=== PATIENT | female | born 1945 | race African-American/Black ===

== ENCOUNTER 2017-06-03 14:08 | Inpatient (IN) | payer MEDICARE, OTHER ==
[~2017-06-03] VITALS: Ht 147.3 cm; Wt 54.4 kg
[~2017-06-03 14:08] MED LIST: ACETYLCYST200 MG/11 TRANSTR092; AMLODIPINE BESYL5 MG GT; ARICEPT5 MG GT; ASPIRIN81 MG GT; CARAFATE SUSP UD1 G1 GT; CATAPRES0.1 MG GT; DOXYCYCLINE MO100 MG ORAL; DUONEB 0.5-3(2.53 ML HHN; ENSURE PLUS237 ML GT; FOLIC ACID1 MG GT; FUROSEMIDE40 MG GT; KEPPRA LIQ100 MG/1 M GT; LORAZEPAM1 MG ORAL; METOPROLOL TART25 MG ORAL; POTASSIUM20 MEQ/15 GT; PREDNISONE5 MG GT; TOPIRAMATE100 MG GT; VIMPAT200 MG GT; ZOLOFT50 MG GT
--- NOTE | 2017-06-03 15:00 | Diagnostic Imaging Report ---
Indication: Dyspnea Comparison: None A single view chest radiograph was obtained. Findings: Tracheostomy noted. Lungs are clear. There is a right pleural effusion versus pleural thickening. Aorta is ectatic. Heart size is normal. Bones are osteopenic. Impression: Right pleural effusion versus pleural thickening.
[2017-06-03 15:55] LABS: MEAN CORPUSCULAR HEMOGLOBIN 34.7 PG (27.0-31.0); MEAN CORPUSCULAR HGB CONC 34.5 G/DL (32.0-36.0); MEAN CORPUSCULAR VOLUME 101 FL (80-99); MEAN PLATELET VOLUME 10.3 FL (6.5-10.1); PLATELET COUNT 165 K/UL (150-450); RED BLOOD COUNT 2.24 M/UL (4.20-5.40); RED CELL DISTRIBUTION WIDTH 13.8 % (11.6-14.8)
[2017-06-03 16:05] LABS: PROTHROMBIN TIME 10.7 SEC (9.30-11.50)
[2017-06-03 16:15] LABS: ALANINE AMINOTRANSFERASE 71 U/L (3-33); ALBUMIN/GLOBULIN RATIO 0.7 (1.0-2.7); ANION GAP 14 (5-15); ASPARTATE AMINO TRANSFERASE 51 U/L (5-40); CALCIUM 8.9 mg/dL (8.6-10.2); CARBON DIOXIDE 18 mEQ/L (20-30); CHLORIDE 118 mEQ/L (98-107); CREATININE 1.1 mg/dL (0.5-0.9); HEMOLYSIS 7; POTASSIUM 3.8 mEQ/L (3.4-4.9); SODIUM 150 mEQ/L (135-145); TOTAL PROTEIN 7.9 g/dL (6.6-8.7); TROPONIN I < 0.30 ng/mL (<=0.30)
[2017-06-03 16:16] VITALS: BP 125/56
[2017-06-03 16:26] LABS: CKMB < 1.5 ng/mL (< 3.8)
[2017-06-03 16:27] LABS: APPEARANCE,URINE CLEAR; KETONES,URINE NEGATIVE (NEGATIVE); LEUKOCYTE ESTERASE ,URINE 1+ (NEGATIVE); NITRITE,URINE NEGATIVE (NEGATIVE); PH,URINE 6 (4.5-8.0); PROTEIN,URINE NEGATIVE (NEGATIVE); UROBILINOGEN,URINE NORMAL MG/DL (0.0-1.0)
[2017-06-03 16:40] LABS: BACTERIA,URINE OCCASIONAL /HPF; RBC,URINE 0-2 /HPF (0 - 2); SQUAMOUS EPITHELIAL CELL,UR OCCASIONAL /LPF (NONE/OCC); WBC,URINE 0-2 /HPF (0 - 2)
[2017-06-03 16:54] LABS: BAND NEUTROPHILS % (MANUAL) 1 % (0-8); EOSINOPHILS % (MANUAL) 10 % (0-3); LYMPHOCYTES % (MANUAL) 40 % (20-45); NEUTROPHILS % (MANUAL) 48 % (45-75); TOTAL CELLS COUNTED 100
[2017-06-03 16:55] LABS: ANISOCYTOSIS 1+; BASOPHILS % (MANUAL) 0 % (0-2); MACROCYTES 2+; PLATELET ESTIMATE ADEQUATE; PLATELET MORPHOLOGY NORMAL; POLYCHROMASIA 1+
--- NOTE | 2017-06-03 17:20 | Emergency Room Report ---
History of Present Illness General Chief Complaint: Abnormal Labs Source: Patient Present Illness HPI 71-year-old female presents to ED for evaluation. Per EMS patient noted to have abnormal labs. Patient had elevated sodium and low hemoglobin. Patient has a trach, gtube Is on ventilator. Coming from home. Patient is nonverbal at baseline. PMD is Dr. Perez. Afebrile at triage. No signs of distress. No other aggravating relieving factors. No other associated symptoms Allergies: Coded Allergies: DEXAMETHASONE (Unverified Allergy, Unknown, 07/10/15) Patient History Past Medical History: HTN, AFib, CVA/TIA, seizures Past Surgical History: other - trach, gtube Pertinent Family History: none Social History: Denies: smoking, alcohol use, drug use Now: No Immunizations: UTD Reviewed Nursing Documentation: PMH: Agreed, PSxH: Agreed Nursing Documentation-PMH Hx Cardiac Problems: Yes - a fib Hx Hypertension: Yes Hx Cancer: Yes Hx Gastrointestinal Problems: Yes Hx Cerebrovascular Accident: Yes - left side 2007 Hx Dementia: Yes Hx Seizures: Yes Hx Epilepsy: Yes Hx Aphasia: Yes Hx Neurologic Surgery: Yes - crainotomy 2011 Review of Systems All Other Systems: negative except mentioned in HPI Physical Exam Vital Signs Date Time Temp Pulse Resp B/P (MAP) Pulse Ox O2 Delivery O2 Flow Rate FiO2 06/03/17 14:05 70 16 100 Mechanical Ventilator 06/03/17 14:19 60.0 35 06/03/17 16:16 99.1 125/56 Sp02 EP Interpretation: reviewed, normal General Appearance: no apparent distress, non-toxic, other - nonverbal Head: normocephalic Eyes: bilateral eye normal inspection, bilateral eye PERRL ENT: hearing grossly normal, normal pharynx, no angioedema, normal voice Neck: tracheotomy Respiratory: chest non-tender, lungs clear, normal breath sounds, speaking full sentences Cardiovascular #1: regular rate, rhythm, no edema Gastrointestinal: normal bowel sounds, non tender, soft, non-distended, no guarding, no rebound, other - gtube Rectal: deferred Genitourinary: no CVA tenderness Musculoskeletal: normal inspection Neurologic: other - nonverbal Psychiatric: other - nonverbal Skin: normal inspection Lymphatic: normal inspection Medical Decision Making Diagnostic Impression: Primary Impression: Tracheostomy dependence Additional Impressions: Leukocytosis Qualified Codes: D72.829 - Elevated white blood cell count, unspecified Anemia Qualified Codes: D64.9 - Anemia, unspecified Hypernatremia ER Course Hospital Course 71-year-old female presents to ED for evaluation of hemoglobin, elevated sodium Differential diagnoses include: anemia requiring transfusion, microcytic anemia , macrocytic anemia, heavy blood loss Clinical course Patient placed on stretcher. After initial history and physical I ordered labs , ivfs, ekg, cxr Labs- leukocytosis noted, hb 7.8, Na 150. lactate ok EKG - nsr no acute changes interpreted by me CXR R effusion noted Vital stable. Patient does not require transfusion at this time IVFs given. levaquin given. Case discussed with PMD Dr. Le who accepted the patient for admission Diagnosis - tracheostomy dependence, leukocytosis, anemia, hypernatremia Admitted to [facility] in serious condition Labs Test 06/03/17 15:30 06/03/17 16:02 White Blood Count 16.0 K/UL (4.8-10.8) Red Blood Count 2.24 M/UL (4.20-5.40) Hemoglobin 7.8 G/DL (12.0-16.0) Hematocrit 22.6 % (37.0-47.0) Mean Corpuscular Volume 101 FL (80-99) Mean Corpuscular Hemoglobin 34.7 PG (27.0-31.0) Mean Corpuscular Hemoglobin Concent 34.5 G/DL (32.0-36.0) Red Cell Distribution Width 13.8 % (11.6-14.8) Platelet Count 165 K/UL (150-450) Mean Platelet Volume 10.3 FL (6.5-10.1) Neutrophils (%) (Auto) % (45.0-75.0) Lymphocytes (%) (Auto) % (20.0-45.0) Monocytes (%) (Auto) % (1.0-10.0) Eosinophils (%) (Auto) % (0.0-3.0) Basophils (%) (Auto) % (0.0-2.0) Differential Total Cells Counted 100 Neutrophils % (Manual) 48 % (45-75) Lymphocytes % (Manual) 40 % (20-45) Monocytes % (Manual) 1 % (1-10) Eosinophils % (Manual) 10 % (0-3) Basophils % (Manual) 0 % (0-2) Band Neutrophils 1 % (0-8) Platelet Estimate Adequate Platelet Morphology Normal Polychromasia 1+ Anisocytosis 1+ Macrocytosis 2+ Prothrombin Time 10.7 SEC (9.30-11.50) Prothromb Time International Ratio 1.0 (0.9-1.1) Activated Partial Thromboplast Time 26 SEC (23-33) Sodium Level 150 mEQ/L (135-145) Potassium Level 3.8 mEQ/L (3.4-4.9) Chloride Level 118 mEQ/L (98-107) Carbon Dioxide Level 18 mEQ/L (20-30) Anion Gap 14 (5-15) Blood Urea Nitrogen 30 mg/dL (7-23) Creatinine 1.1 mg/dL (0.5-0.9) Estimat Glomerular Filtration Rate mL/min (>60) Glucose Level 112 mg/dL (74-106) Lactic Acid Level 1.50 mmol/L (0.66-2.22) Calcium Level 8.9 mg/dL (8.6-10.2) Total Bilirubin < 0.2 mg/dL (0.0-1.2) Aspartate Amino Transf (AST/SGOT) 51 U/L (5-40) Alanine Aminotransferase (ALT/SGPT) 71 U/L (3-33) Alkaline Phosphatase 205 U/L (35-104) Total Creatine Kinase 76 U/L (26-140) Creatine Kinase MB < 1.5 ng/mL (< 3.8) Creatine Kinase MB Relative Index Troponin I < 0.30 ng/mL (<=0.30) Pro-B-Type Natriuretic Peptide 75 pg/mL (0-125) Total Protein 7.9 g/dL (6.6-8.7) Albumin 3.3 g/dL (3.5-5.2) Globulin 4.6 g/dL Albumin/Globulin Ratio 0.7 (1.0-2.7) Urine Color Pale yellow Urine Appearance Clear Urine pH 6 (4.5-8.0) Urine Specific [place] 1.010 (1.005-1.035) Urine Protein Negative (NEGATIVE) Urine Glucose (UA) Negative (NEGATIVE) Urine Ketones Negative (NEGATIVE) Urine Occult Blood Negative (NEGATIVE) Urine Nitrite Negative (NEGATIVE) Urine Bilirubin Negative (NEGATIVE) Urine Urobilinogen Normal MG/DL (0.0-1.0) Urine Leukocyte Esterase 1+ (NEGATIVE) Urine RBC 0-2 /HPF (0 - 2) Urine WBC 0-2 /HPF (0 - 2) Urine Squamous Epithelial Cells Occasional /LPF Urine Bacteria Occasional /HPF (NONE) EKG Diagnostic Results Rate: normal Rhythm: NSR ST Segments: no acute changes ASA given to the pt in ED: No Rhythm Strip Diag. Results EP Interpretation: yes Rhythm: NSR, no PVC's, no ectopy Chest X-Ray Diagnostic Results Chest X-Ray Diagnostic Results : Chest X-Ray Ordered: Yes # of Views/Limited/Complete: 1 View Indication: Other - ams EP Interpretation: Yes Interpretation: no consolidation, no pneumothorax, no acute cardiopulmonary disease, other - R effusion Impression: Other - R effusion Interpreting ER Provider: Electronically signed by Kendrick Cotto MD Last Vital Signs Date Time Temp Pulse Resp B/P (MAP) Pulse Ox O2 Delivery O2 Flow Rate FiO2 06/03/17 16:16 99.1 65 16 125/56 100 Mechanical Ventilator 6.0 35 Status: improved Disposition: ADMITTED INPATIENT Condition: Serious Referrals: NOT CHOSEN JATIN/,REFERRING (PCP) KENDRICK COTTO M.D. Jun 03, 2017 17:20
[2017-06-03 17:54] VITALS: BP 123/58
[2017-06-03 18:41] VITALS: BP 125/70
[2017-06-03 20:00] VITALS: BP 138/68
[2017-06-03] MEDS: Metoprolol 25mg tab GT SCH (20:51)
[2017-06-03] MEDS ORDERED: Heparin 5000 units/ml inj SUBQ SCH (21:00)
--- NOTE | 2017-06-03 23:23 | History and Physical ---
History of Present Illness General Date patient seen: Jun 03, 2017 Time patient seen: 17:00 Reason for Hospitalization: Abnormal Labs Present Illness HPI 71y/o AAF w/ MMP including Hx PUD w/ bleeding ulcer, CVA, Dysphagia, Trach, Bedbound, Seizures, G tube and anemia presents with generalized weakness/ lethargy and abnormal labs. Per daughter who is pt's caregiver at home, outpatient labs done by PCP showed hypernatremia and anemia. Pt was then sent to ER. Daughter states pt is non-verbal at baseline but has been more lethargic over the last few weeks and more confused over the last 2 days. At baseline pt is bedbound and minimally verbal, however knows her family and is able to express her wants. She lives at home and her primary caregiver is her daughter. Pt is on trach collar and receives G tube meds/feeds. Pt has a sacral decubitus ulcer being treated at home w/ wound mgt. No reports of f/c, n/v, d/c, chest pain, SOB, abd pain. PMHX includes; CVA 2007, no residual deficits Ovarian cancer s/p OLIVERIO SBO w/ Chemo Metastatic brain leasons s/p Cranial resection x 2 and XRT Urosepsis w/ complicated course including resp failure w/ trach placement and prolonged weaning to trach collar, G tube Seizures PUD w/ bleeding ulcer in 2011 s/p procedure to achieve hemostasis (? surgical vs EGD) Allergies: Coded Allergies: DEXAMETHASONE (Unverified Allergy, Unknown, 07/10/15) Medication History Scheduled Acetylcysteine* (Acetylcysteine*), 3 ML [id number] Q12HR, (Reported) Amlodipine Besylate* (Amlodipine Besylate*), 5 MG GT DAILY, (Reported) Aspirin* (Aspirin*), 81 MG GT DAILY, (Reported) Donepezil Hcl* (Aricept*), 5 MG GT BEDTIME, (Reported) Doxycycline Monohydrate* (Doxycycline Monohydrate*), 100 MG ORAL Q12H Folic Acid* (Folic Acid*), 1 MG GT DAILY, (Reported) Furosemide* (Lasix*), 40 MG GT DAILY, (Reported) Ipratropium/Albuterol Sulfate (DuoNeb 0.5-3(2.5)mg/3ml), 3 ML HHN Q6HR, ( Reported) Lacosamide (Vimpat), 200 MG GT Q12HR, (Reported) Lactose-Free Food (Ensure Plus), 1,659 ML GT DAILY, (Reported) Levetiracetam (Keppra), 15 ML GT BID, (Reported) Metoprolol Tartrate* (Metoprolol Tartrate*), 25 MG ORAL EVERY 12 HOURS, ( Reported) Potassium Chloride (Potassium Chloride), 10 MEQ GT BID, (Reported) Prednisone (Prednisone), 5 MG GT DAILY, (Reported) Sertraline Hcl* (Zoloft*), 50 MG GT BEDTIME, (Reported) Sucralfate (Sucralfate), 1 GM GT TID, (Reported) Topiramate* (Topamax*), 100 MG GT Q12HR, (Reported) Scheduled PRN Clonidine Hcl* (Catapres*), 0.1 MG GT EVERY 6 HOURS PRN for For High Blood Pressure, (Reported) Lorazepam* (Lorazepam*), 1 MG ORAL Q6HR PRN for Agitation, (Reported) Patient History History Provided By: Patient, Medical Record, Caregiver, PMD Healthcare decision maker Pt's daughter Resuscitation status Full Code Advanced Directive on File No Past Medical/Surgical History Past Medical/Surgical History: (1) Tracheostomy dependence (2) CVA (cerebral vascular accident) (3) Brain metastases (4) Ovarian cancer (5) PUD (peptic ulcer disease) (6) Functional quadriplegia (7) Dysphagia (8) Decubitus skin ulcer (9) Seizure (10) HTN (hypertension) (11) Anemia Family History Family History: Patient reports no known family medical history. Social History Social History: (1) lives at home with daughter as caregiver Review of Systems ROS Narrative Unable to obtain given AMS Physical Exam Last 24 Hour Vital Signs Date Time Temp Pulse Resp B/P (MAP) Pulse Ox O2 Delivery O2 Flow Rate FiO2 06/03/17 23:12 73 23 35 06/03/17 22:20 72 06/03/17 21:12 69 21 35 06/03/17 20:51 72 138/68 06/03/17 20:00 97.5 72 24 138/68 100 Mechanical Ventilator 35 06/03/17 19:56 79 21 Mechanical Ventilator 60.0 35 06/03/17 19:26 72 25 35 06/03/17 18:41 97.9 68 16 125/70 100 Mechanical Ventilator 6.0 35 06/03/17 18:10 35 06/03/17 17:58 98.9 67 16 123/58 100 Mechanical Ventilator 6.0 35 06/03/17 17:54 98.9 67 16 123/58 100 Mechanical Ventilator 6.0 35 06/03/17 17:26 70 16 35 06/03/17 16:16 99.1 65 16 125/56 100 Mechanical Ventilator 6.0 35 06/03/17 15:16 71 21 35 06/03/17 14:19 70 16 35 06/03/17 14:19 70 16 Mechanical Ventilator 60.0 35 06/03/17 14:05 70 16 100 Mechanical Ventilator Laboratory Tests Test 06/03/17 15:30 06/03/17 16:02 White Blood Count 16.0 K/UL (4.8-10.8) H Red Blood Count 2.24 M/UL (4.20-5.40) L Hemoglobin 7.8 G/DL (12.0-16.0) L Hematocrit 22.6 % (37.0-47.0) L Mean Corpuscular Volume 101 FL (80-99) H Mean Corpuscular Hemoglobin 34.7 PG (27.0-31.0) H Mean Corpuscular Hemoglobin Concent 34.5 G/DL (32.0-36.0) Red Cell Distribution Width 13.8 % (11.6-14.8) Platelet Count 165 K/UL (150-450) Mean Platelet Volume 10.3 FL (6.5-10.1) H Neutrophils (%) (Auto) % (45.0-75.0) Lymphocytes (%) (Auto) % (20.0-45.0) Monocytes (%) (Auto) % (1.0-10.0) Eosinophils (%) (Auto) % (0.0-3.0) Basophils (%) (Auto) % (0.0-2.0) Differential Total Cells Counted 100 Neutrophils % (Manual) 48 % (45-75) Lymphocytes % (Manual) 40 % (20-45) Monocytes % (Manual) 1 % (1-10) Eosinophils % (Manual) 10 % (0-3) H Basophils % (Manual) 0 % (0-2) Band Neutrophils 1 % (0-8) Platelet Estimate Adequate Platelet Morphology Normal Polychromasia 1+ Anisocytosis 1+ Macrocytosis 2+ Prothrombin Time 10.7 SEC (9.30-11.50) Prothromb Time International Ratio 1.0 (0.9-1.1) Activated Partial Thromboplast Time 26 SEC (23-33) Sodium Level 150 mEQ/L (135-145) H Potassium Level 3.8 mEQ/L (3.4-4.9) Chloride Level 118 mEQ/L (98-107) H Carbon Dioxide Level 18 mEQ/L (20-30) L Anion Gap 14 (5-15) Blood Urea Nitrogen 30 mg/dL (7-23) H Creatinine 1.1 mg/dL (0.5-0.9) H Estimat Glomerular Filtration Rate mL/min (>60) Glucose Level 112 mg/dL (74-106) H Lactic Acid Level 1.50 mmol/L (0.66-2.22) Calcium Level 8.9 mg/dL (8.6-10.2) Total Bilirubin < 0.2 mg/dL (0.0-1.2) Aspartate Amino Transf (AST/SGOT) 51 U/L (5-40) H Alanine Aminotransferase (ALT/SGPT) 71 U/L (3-33) H Alkaline Phosphatase 205 U/L (35-104) H Total Creatine Kinase 76 U/L (26-140) Creatine Kinase MB < 1.5 ng/mL (< 3.8) Creatine Kinase MB Relative Index Troponin I < 0.30 ng/mL (<=0.30) Pro-B-Type Natriuretic Peptide 75 pg/mL (0-125) Total Protein 7.9 g/dL (6.6-8.7) Albumin 3.3 g/dL (3.5-5.2) L Globulin 4.6 g/dL Albumin/Globulin Ratio 0.7 (1.0-2.7) L Urine Color Pale yellow Urine Appearance Clear Urine pH 6 (4.5-8.0) Urine Specific [place] 1.010 (1.005-1.035) Urine Protein Negative (NEGATIVE) Urine Glucose (UA) Negative (NEGATIVE) Urine Ketones Negative (NEGATIVE) Urine Occult Blood Negative (NEGATIVE) Urine Nitrite Negative (NEGATIVE) Urine Bilirubin Negative (NEGATIVE) Urine Urobilinogen Normal MG/DL (0.0-1.0) Urine Leukocyte Esterase 1+ (NEGATIVE) H Urine RBC 0-2 /HPF (0 - 2) Urine WBC 0-2 /HPF (0 - 2) Urine Squamous Epithelial Cells Occasional /LPF Urine Bacteria Occasional /HPF (NONE) Height (Feet): 4 Height (Inches): 10.00 Weight (Pounds): 120 Medications Current Medications Medications (Trade) Dose Ordered Sig/[place] Route PRN Reason Start Time Stop Time Status Last Admin Dose Admin Acetaminophen (Tylenol) 650 mg Q4H PRN ORAL Mild Pain (Pain Scale 1-3) 06/03/17 17:30 07/03/17 17:29 Dextrose (Dextrose 50%) STAT PRN IV Hypoglycemia 06/03/17 17:30 07/03/17 17:29 Heparin Sodium (Porcine) (Heparin 5000 units/ml) 5,000 units EVERY 12 HOURS SUBQ 06/03/17 21:00 07/03/17 20:59 06/03/17 20:54 Metoprolol Tartrate (Lopressor) 25 mg EVERY 12 HOURS GT 06/03/17 21:00 07/03/17 20:59 06/03/17 20:51 Sodium Chloride 1,000 ml @ 75 mls/hr [id number] IV 06/03/17 18:30 07/03/17 18:29 06/03/17 18:41 Objective Narrative General: unresponsive, non-verbal at baseline Head: normocephalic, without obvious abnormality, atraumatic Eyes: conjunctivae/corneas clear. PERRL, EOM's intact Throat: lips, mucosa, and tongue normal. MMM Neck: supple, symmetrical, trachea midline, and no JVD, +trach Lungs: clear to auscultation bilaterally Heart: regular rate and rhythm, S1, S2 normal, no murmur, click, rub or gallop Abdomen: soft, non-tender, non-distended, bowel sounds normal; +G tube c/d/i Extremities: extremities normal, atraumatic, no cyanosis or edema Pulses: 2+ and symmetric Skin: skin color, texture, turgor normal; no rashes or lesions Neurologic: grossly normal, no focal deficits Assessment/Plan Problem List: (1) Acute on chronic anemia (2) VERNA (acute kidney injury) ICD Codes: N17.9 - Acute kidney failure, unspecified SNOMED: 57650433 (3) Acute toxic metabolic encephalopathy (4) Hypernatremia ICD Codes: E87.0 - Hyperosmolality and hypernatremia SNOMED: 76999658 (5) Decubitus skin ulcer ICD Codes: L89.90 - Pressure ulcer of unspecified site, unspecified stage SNOMED: 386524168 (6) Tracheostomy dependence ICD Codes: Z93.0 - Tracheostomy status SNOMED: 716233662, 015393676 (7) Seizure ICD Codes: R56.9 - Unspecified convulsions SNOMED: 85117716 (8) HTN (hypertension) ICD Codes: I10 - Essential (primary) hypertension SNOMED: 66142387 (9) CVA (cerebral vascular accident) ICD Codes: I63.9 - Cerebral infarction, unspecified SNOMED: 232423711 (10) Functional quadriplegia ICD Codes: R53.2 - Functional quadriplegia SNOMED: 106891125824873 (11) Ovarian cancer ICD Codes: C56.9 - Malignant neoplasm of unspecified ovary SNOMED: 368988482 (12) Brain metastases ICD Codes: C79.31 - Secondary malignant neoplasm of brain SNOMED: 09170071 (13) PUD (peptic ulcer disease) ICD Codes: K27.9 - Peptic ulcer, site unspecified, unspecified as acute or chronic, without hemorrhage or perforation SNOMED: 59244905 (14) Leukocytosis ICD Codes: D72.829 - Elevated white blood cell count, unspecified SNOMED: 531461833, 623860151 Qualifiers: Qualified Codes: D72.829 - Elevated white blood cell count, unspecified (15) Left ischial tuberosity stage III pressure ulcer (16) Sacrococcygeal unstageable pressure ulcer with extensive full thickness scar tissue Status: stable Assessment/Plan Admit inpt GI consulted Transfuse for hgb<7 Monitor for signs of bleeding Pulm consulted Cont vent IVFs for hypernatremia Hold home lasix given VERNA Cont other home meds including AEDs Pain control, supportive care, bowel regimen Cont tube feeds via PEG DVT Prophylaxis: SCD, HSQ Code Status: Full Hospital Classification Declaration: Based on this initial evaluation, and depending on the patient's clinical course, I anticipate that this patient will require hospitalization for 2-3 days for AMS, anemia, hypernatremia, VERNA and close respiratory/hemodynamic monitoring. Disposition: Once the patient is stable to leave the hospital, I anticipate the patient will likely be discharged to the following environment: home with HH + CG vs SNF I spent 70 minutes on this patient's case, and 39 minutes were dedicated to counseling and/or care coordination. Discussed with patient/family, nursing staff, SW/CM, GI, pulm] regarding clinical status, treatment course, and disposition planning. Time of note may not reflect time of encounter. Niki Rodriguez M.D. Jun 03, 2017 23:23
[2017-06-04] VITALS: BP 102/72
--- NOTE | 2017-06-04 02:07 | Wound Care Consultation ---
Wound Assessment Wound Assessment #1: Wound Number: 1 Wound Present on Admission: Yes New Wound: No Status Change of Wound: No Wound Location Body Site Modif: mid Wound Location Body Site: other - Sacrococcygeal Wound Type: pressure ulcer Orin Test: Does not Orin Pressure Ulcer Stage: IV/unstageable Wound Thickness: Full Thickness Wound Length: 3.0 Wound Width: 2.5 Wound Depth: utd Percent of Wound Bed Yellow/Wh: 100 Wound Drainage Description: Serosanguineous Wound Drainage Amount: Scant Wound Drainage Odor: None/Absent Tissue Surrounding Wound: with extensive full thickness scar tissue Wound Assessment #2: Wound Number: 2 Wound Present on Admission: Yes New Wound: No Status Change of Wound: No Wound Location Body Site Modif: left Wound Location Body Site: ischial tuberosity Wound Type: pressure ulcer Orin Test: Does not Orin Pressure Ulcer Stage: III Wound Thickness: Full Thickness Wound Length: 3.0 Wound Width: 2.0 Wound Depth: 0.2 Percent of Wound [place]/Red: 100 Wound Drainage Description: Serosanguineous Wound Drainage Amount: Scant Wound Drainage Odor: None/Absent Tissue Surrounding Wound: Erythemic Wound General Appearance: Reddened, Draining Wound Comment #1 Sacrococcygeal unstageable pressure ulcer with extensive full thickness scar tissue #2 Left ischial tuberosity stage III pressure ulcer Recommendation -Sacrococcygeal unstageable pressure ulcer with extensive full thickness scar tissue and Left ischial tuberosity stage III pressure ulcer Cleanse with saline, pat dry, apply Triad cream, cover with bordered gauze daily and PRN soiled/dislodged -Keep clean and dry -Turn and reposition -Optimize nutrition -Low air loss mattress -Offload both heels -Heel protector on both heels -Assess and f/u accordingly for any changes ASHUTOSH HERNANDEZ RN Jun 04, 2017 02:07
[2017-06-04 04:00] VITALS: BP 124/66
[2017-06-04 05:15] LABS: MEAN CORPUSCULAR HEMOGLOBIN 33.5 PG (27.0-31.0); MEAN CORPUSCULAR HGB CONC 32.7 G/DL (32.0-36.0); MEAN CORPUSCULAR VOLUME 103 FL (80-99); MEAN PLATELET VOLUME 10.8 FL (6.5-10.1); PLATELET COUNT 147 K/UL (150-450); RED BLOOD COUNT 1.87 M/UL (4.20-5.40); RED CELL DISTRIBUTION WIDTH 13.6 % (11.6-14.8); WHITE BLOOD COUNT 11.4 K/UL (4.8-10.8)
[2017-06-04 05:32] LABS: MAGNESIUM 2.2 mg/dL (1.7-2.5); PHOSPHORUS 3.9 mg/dL (2.5-4.8)
[2017-06-04 05:50] LABS: ANION GAP 11 (5-15); BILIRUBIN,DIRECT 0.1 mg/dL (0.1-0.3); CALCIUM 8.8 mg/dL (8.6-10.2); CARBON DIOXIDE 19 mEQ/L (20-30); CHLORIDE 117 mEQ/L (98-107); CREATININE 0.9 mg/dL (0.5-0.9); HEMOLYSIS 3; POTASSIUM 3.6 mEQ/L (3.4-4.9); SODIUM 147 mEQ/L (135-145); TOTAL PROTEIN 7.2 g/dL (6.6-8.7)
[2017-06-04 06:24] LABS: FERRITIN 2463 ng/mL (13-150)
[2017-06-04 08:00] VITALS: BP 135/72
[2017-06-04 08:08] LABS: ANISOCYTOSIS 1+; BAND NEUTROPHILS % (MANUAL) 0 % (0-8); BASOPHILS % (MANUAL) 0 % (0-2); EOSINOPHILS % (MANUAL) 10 % (0-3); HYPOCHROMASIA 1+; LYMPHOCYTES % (MANUAL) 37 % (20-45); MACROCYTES 1+; NEUTROPHILS % (MANUAL) 50 % (45-75); PLATELET ESTIMATE ADEQUATE; PLATELET MORPHOLOGY NORMAL; TOTAL CELLS COUNTED 100
--- NOTE | 2017-06-04 08:08 | Consultation ---
History of Present Illness General Date patient seen: Jun 04, 2017 Chief Complaint: Abnormal Labs Referring physician: Dr. Alvarez Reason for Consultation: vent management Present Illness HPI 69 year old female with PMHX of CVA 2007, Ovarian cancer s/p OLIVERIO SBO w/ Chemo, Metastatic brain leasons s/p Cranial resection x 2 and XRT, PUD w/ bleeding ulcer, Trach, Bedbound, Seizures, G tube and anemia presents to [facility] for evaluation of anemia. Pt has been more lethargic over the last few weeks and more confused over the last 2 days. She is admitted to [facility] for severe anemia, leukocytosis. Allergies: Coded Allergies: DEXAMETHASONE (Unverified Allergy, Unknown, 07/10/15) Medication History Scheduled Acetylcysteine* (Acetylcysteine*), 3 ML [id number] Q12HR, (Reported) Amlodipine Besylate* (Amlodipine Besylate*), 5 MG GT DAILY, (Reported) Aspirin* (Aspirin*), 81 MG GT DAILY, (Reported) Donepezil Hcl* (Aricept*), 5 MG GT BEDTIME, (Reported) Doxycycline Monohydrate* (Doxycycline Monohydrate*), 100 MG ORAL Q12H Folic Acid* (Folic Acid*), 1 MG GT DAILY, (Reported) Furosemide* (Lasix*), 40 MG GT DAILY, (Reported) Ipratropium/Albuterol Sulfate (DuoNeb 0.5-3(2.5)mg/3ml), 3 ML HHN Q6HR, ( Reported) Lacosamide (Vimpat), 200 MG GT Q12HR, (Reported) Lactose-Free Food (Ensure Plus), 1,659 ML GT DAILY, (Reported) Levetiracetam (Keppra), 15 ML GT BID, (Reported) Metoprolol Tartrate* (Metoprolol Tartrate*), 25 MG ORAL EVERY 12 HOURS, ( Reported) Potassium Chloride (Potassium Chloride), 10 MEQ GT BID, (Reported) Prednisone (Prednisone), 5 MG GT DAILY, (Reported) Sertraline Hcl* (Zoloft*), 50 MG GT BEDTIME, (Reported) Sucralfate (Sucralfate), 1 GM GT TID, (Reported) Topiramate* (Topamax*), 100 MG GT Q12HR, (Reported) Scheduled PRN Clonidine Hcl* (Catapres*), 0.1 MG GT EVERY 6 HOURS PRN for For High Blood Pressure, (Reported) Lorazepam* (Lorazepam*), 1 MG ORAL Q6HR PRN for Agitation, (Reported) Patient History Healthcare decision maker N Resuscitation status Full Code Advanced Directive on File No Past Medical/Surgical History Past Medical/Surgical History: (1) Gastrointestinal bleed (2) Decubitus skin ulcer (3) Seizure (4) HTN (hypertension) (5) Infected skin lesion Review of Systems All Other Systems: negative except mentioned in HPI Physical Exam General Appearance: cachetic Lines, tubes and drains: peripheral HEENT: normocephalic, atraumatic Neck: non-tender, normal alignment Respiratory/Chest: chest wall non-tender, lungs clear Cardiovascular/Chest: normal peripheral pulses, regular rhythm Abdomen: normal bowel sounds, non tender Genitourinary/Rectal: normal genital exam, normal rectal exam Extremities: normal range of motion Last 24 Hour Vital Signs Date Time Temp Pulse Resp B/P (MAP) Pulse Ox O2 Delivery O2 Flow Rate FiO2 06/04/17 07:13 67 16 35 06/04/17 05:03 68 16 35 06/04/17 04:00 35 06/04/17 04:00 97.8 71 22 124/66 100 Mechanical Ventilator 35 06/04/17 03:08 69 23 35 06/04/17 01:29 76 22 35 06/04/17 00:00 35 06/04/17 00:00 66 06/04/17 00:00 98.1 68 24 102/72 100 Mechanical Ventilator 35 06/03/17 23:12 73 23 35 06/03/17 22:20 72 06/03/17 21:12 69 21 35 06/03/17 20:51 72 138/68 06/03/17 20:00 97.5 72 24 138/68 100 Mechanical Ventilator 35 06/03/17 19:56 79 21 Mechanical Ventilator 60.0 35 06/03/17 19:26 72 25 35 06/03/17 18:41 97.9 68 16 125/70 100 Mechanical Ventilator 6.0 35 06/03/17 18:10 35 06/03/17 17:58 98.9 67 16 123/58 100 Mechanical Ventilator 6.0 35 06/03/17 17:54 98.9 67 16 123/58 100 Mechanical Ventilator 6.0 35 06/03/17 17:26 70 16 35 06/03/17 16:16 99.1 65 16 125/56 100 Mechanical Ventilator 6.0 35 06/03/17 15:16 71 21 35 06/03/17 14:19 70 16 35 06/03/17 14:19 70 16 Mechanical Ventilator 60.0 35 06/03/17 14:05 70 16 100 Mechanical Ventilator Laboratory Tests Test 06/03/17 15:30 06/03/17 16:02 06/04/17 04:00 06/04/17 04:01 White Blood Count 16.0 K/UL (4.8-10.8) H 11.4 K/UL (4.8-10.8) H Red Blood Count 2.24 M/UL (4.20-5.40) L 1.87 M/UL (4.20-5.40) L Hemoglobin 7.8 G/DL (12.0-16.0) L 6.3 G/DL (12.0-16.0) *L Hematocrit 22.6 % (37.0-47.0) L 19.2 % (37.0-47.0) L Mean Corpuscular Volume 101 FL (80-99) H 103 FL (80-99) H Mean Corpuscular Hemoglobin 34.7 PG (27.0-31.0) H 33.5 PG (27.0-31.0) H Mean Corpuscular Hemoglobin Concent 34.5 G/DL (32.0-36.0) 32.7 G/DL (32.0-36.0) Red Cell Distribution Width 13.8 % (11.6-14.8) 13.6 % (11.6-14.8) Platelet Count 165 K/UL (150-450) 147 K/UL (150-450) L Mean Platelet Volume 10.3 FL (6.5-10.1) H 10.8 FL (6.5-10.1) H Neutrophils (%) (Auto) % (45.0-75.0) % (45.0-75.0) Lymphocytes (%) (Auto) % (20.0-45.0) % (20.0-45.0) Monocytes (%) (Auto) % (1.0-10.0) % (1.0-10.0) Eosinophils (%) (Auto) % (0.0-3.0) % (0.0-3.0) Basophils (%) (Auto) % (0.0-2.0) % (0.0-2.0) Differential Total Cells Counted 100 Neutrophils % (Manual) 48 % (45-75) Pending Lymphocytes % (Manual) 40 % (20-45) Pending Monocytes % (Manual) 1 % (1-10) Eosinophils % (Manual) 10 % (0-3) H Basophils % (Manual) 0 % (0-2) Band Neutrophils 1 % (0-8) Platelet Estimate Adequate Pending Platelet Morphology Normal Pending Polychromasia 1+ Anisocytosis 1+ Macrocytosis 2+ Prothrombin Time 10.7 SEC (9.30-11.50) Prothromb Time International Ratio 1.0 (0.9-1.1) Activated Partial Thromboplast Time 26 SEC (23-33) Sodium Level 150 mEQ/L (135-145) H 147 mEQ/L (135-145) H Potassium Level 3.8 mEQ/L (3.4-4.9) 3.6 mEQ/L (3.4-4.9) Chloride Level 118 mEQ/L (98-107) H 117 mEQ/L (98-107) H Carbon Dioxide Level 18 mEQ/L (20-30) L 19 mEQ/L (20-30) L Anion Gap 14 (5-15) 11 (5-15) Blood Urea Nitrogen 30 mg/dL (7-23) H 24 mg/dL (7-23) H Creatinine 1.1 mg/dL (0.5-0.9) H 0.9 mg/dL (0.5-0.9) Estimat Glomerular Filtration Rate mL/min (>60) mL/min (>60) Glucose Level 112 mg/dL (74-106) H 102 mg/dL (74-106) Lactic Acid Level 1.50 mmol/L (0.66-2.22) Calcium Level 8.9 mg/dL (8.6-10.2) 8.8 mg/dL (8.6-10.2) Total Bilirubin < 0.2 mg/dL (0.0-1.2) 0.2 mg/dL (0.0-1.2) Aspartate Amino Transf (AST/SGOT) 51 U/L (5-40) H 34 U/L (5-40) Alanine Aminotransferase (ALT/SGPT) 71 U/L (3-33) H 53 U/L (3-33) H Alkaline Phosphatase 205 U/L (35-104) H 192 U/L (35-104) H Total Creatine Kinase 76 U/L (26-140) Creatine Kinase MB < 1.5 ng/mL (< 3.8) Creatine Kinase MB Relative Index Troponin I < 0.30 ng/mL (<=0.30) Pro-B-Type Natriuretic Peptide 75 pg/mL (0-125) Total Protein 7.9 g/dL (6.6-8.7) 7.2 g/dL (6.6-8.7) Albumin 3.3 g/dL (3.5-5.2) L 3.1 g/dL (3.5-5.2) L Globulin 4.6 g/dL Albumin/Globulin Ratio 0.7 (1.0-2.7) L Urine Color Pale yellow Urine Appearance Clear Urine pH 6 (4.5-8.0) Urine Specific [place] 1.010 (1.005-1.035) Urine Protein Negative (NEGATIVE) Urine Glucose (UA) Negative (NEGATIVE) Urine Ketones Negative (NEGATIVE) Urine Occult Blood Negative (NEGATIVE) Urine Nitrite Negative (NEGATIVE) Urine Bilirubin Negative (NEGATIVE) Urine Urobilinogen Normal MG/DL (0.0-1.0) Urine Leukocyte Esterase 1+ (NEGATIVE) H Urine RBC 0-2 /HPF (0 - 2) Urine WBC 0-2 /HPF (0 - 2) Urine Squamous Epithelial Cells Occasional /LPF Urine Bacteria Occasional /HPF (NONE) Vitamin D 25-Hydroxy Pending 25-Hydroxy Vitamin D2 Pending 25-Hydroxy Vitamin D3 Pending Folate Pending Phosphorus Level 3.9 mg/dL (2.5-4.8) Magnesium Level 2.2 mg/dL (1.7-2.5) Iron Level 49 ug/dL (37-145) Total Iron Binding Capacity 105 ug/dL (250-400) L Percent Iron Saturation 47 % (15-50) Unsaturated Iron Binding 56 ug/dL (112-346) L Ferritin 2463 ng/mL (13-150) H Direct Bilirubin 0.1 mg/dL (0.1-0.3) Vitamin B12 Level > 2000 pg/mL (211-946) H Thyroid Stimulating Hormone (TSH) 1.980 uIU/mL (0.300-4.500) Height (Feet): 4 Height (Inches): 10.00 Weight (Pounds): 120 Medications Current Medications Medications (Trade) Dose Ordered Sig/Ludivina Route PRN Reason Start Time Stop Time Status Last Admin Dose Admin Acetaminophen (Tylenol) 650 mg Q4H PRN ORAL Mild Pain (Pain Scale 1-3) 06/03/17 17:30 07/03/17 17:29 Albuterol/ Ipratropium (DuoNeb 0.5-3(2.5)mg/3ml) 3 ml Q6HRT HHN 06/04/17 07:00 06/09/17 06:59 UNV Amlodipine Besylate (Norvasc) 5 mg DAILY GT 06/04/17 09:00 07/04/17 08:59 Aspirin (ASA) 81 mg DAILY GT 06/04/17 09:00 07/04/17 08:59 Clonidine HCl (Catapres) 0.1 mg Q6H PRN GT For High Blood Pressure 06/03/17 23:30 07/03/17 23:29 UNV Dextrose (Dextrose 50%) STAT PRN IV Hypoglycemia 06/03/17 17:30 07/03/17 17:29 Donepezil HCl (Aricept) 5 mg BEDTIME GT 06/04/17 21:00 07/04/17 20:59 Folic Acid (Folate) 1 mg DAILY GT 06/04/17 09:00 07/04/17 08:59 Heparin Sodium (Porcine) (Heparin 5000 units/ml) 5,000 units EVERY 12 HOURS SUBQ 06/03/17 21:00 07/03/17 20:59 06/03/17 20:54 Levetiracetam (Keppra) 1,500 mg BID GT 06/04/17 09:00 07/04/17 08:59 Metoprolol Tartrate (Lopressor) 25 mg EVERY 12 HOURS GT 06/03/17 21:00 07/03/17 20:59 06/03/17 20:51 Non-Formulary Medication (Non-Formulary Med) 1 ea Q12H ORAL 06/03/17 23:30 07/03/17 23:29 UNV Sertraline HCl (Zoloft) 50 mg BEDTIME GT 06/04/17 21:00 07/04/17 20:59 Sodium Chloride 1,000 ml @ 75 mls/hr [id number] IV 06/03/17 18:30 07/03/17 18:29 06/04/17 07:01 Topiramate (Topamax) 100 mg Q12HR GT 06/04/17 09:00 07/04/17 08:59 Assessment/Plan Problem List: (1) Tracheostomy dependence ICD Codes: Z93.0 - Tracheostomy status SNOMED: 038224705, 429468088 (2) Sepsis ICD Codes: A41.9 - Sepsis, unspecified organism SNOMED: 24139698 (3) Decubitus skin ulcer ICD Codes: L89.90 - Pressure ulcer of unspecified site, unspecified stage SNOMED: 515023897 (4) Anemia ICD Codes: D64.9 - Anemia, unspecified SNOMED: 530533355 Qualifiers: Qualified Codes: D64.9 - Anemia, unspecified Respiratory: monitor respiratory rate, adjust FIO2 Cardiac: continue to monitor HR/BP Renal: F/U I&O, keep IV fluid Infectious Disease: check cultures Gastrointestinal: continue feedings/current rate Endocrine: check TSH, continue sliding scale insulin Hematologic: monitor H/H, transfuse if hgb<8.5 Neurologic: PRN Ativan, PRN Morphine, keep patient comfortable Affect: PRN ativan Prophylaxis: Protonix Notes Reviewed: research professor, renal Discussed with: nurses, consultants, case management specialist BENJY CARMEN Jun 04, 2017 08:08
[2017-06-04] MEDS ORDERED: Topiramate 100mg tab GT SCH (09:00)
[2017-06-04] MEDS ORDERED: Docusate 100mg cap ORAL SCH (09:00)
[2017-06-04] MEDS ORDERED: Aspirin Baby 81mg GT SCH (09:00)
[2017-06-04] MEDS: Zinc Sulfate 220mg cap ORAL SCH (09:52)
[2017-06-04] MEDS: Topiramate 100mg tab GT SCH ×2 (09:53→20:22)
[2017-06-04] MEDS: Ascorbic Acid 500mg tab ORAL SCH (09:53)
[2017-06-04] MEDS: Metoprolol 25mg tab GT SCH ×2 (09:53→20:21)
[2017-06-04] MEDS: Docusate 100mg/10ml Liq GT SCH ×2 (09:53→18:18)
[2017-06-04] MEDS: levETIRAcetam 500mg/5ml Liquid GT SCH ×2 (09:54→18:18)
[2017-06-04 10:11] LABS: INR 1.1 (0.9-1.1); PROTHROMBIN TIME 11.1 SEC (9.30-11.50)
[2017-06-04] MEDS: Budesonide HHN 0.25mg/2ml ud HHN SCH (11:05)
[2017-06-04 11:06] LABS: ERYTHROCYTE SEDIMENTATION RATE 150 MM/HR (0-30); PATH BLOOD SMEAR/OMC SENT TO PATHOLOGIST
[2017-06-04 11:13] LABS: RETICULOCYTE COUNT 1.3 % (0.0-2.0)
[2017-06-04] MEDS: Lacosamide 100 MG TABLET ORAL SCH ×2 (11:49→20:22)
[2017-06-04 11:52] VITALS: BP 137/75
--- NOTE | 2017-06-04 12:31 | Cardiology Report ---
APPROVED REPORT EKG Measurement Heart [id number] Normal sinus rhythm Nonspecific T wave abnormality Abnormal ECG
[2017-06-04] MEDS: DuoNeb 0.5-3(2.5)mg/3ml neb HHN SCH ×2 (12:54→19:21)
[2017-06-04 16:00] VITALS: BP 146/76
[2017-06-04] MEDS ORDERED: NS 275ml ONE (16:19)
[2017-06-04] MEDS ORDERED: 1/2 NS 1000ml IV ONE (16:19)
[2017-06-04] MEDS ORDERED: Tubing Blood Filter IV ONE (16:19)
[2017-06-04] MEDS ORDERED: Tubing IV Secondary IV ONE (16:19)
--- NOTE | 2017-06-04 20:08 | General Progress Note ---
Assessment/Plan Problem List: (1) Acute toxic metabolic encephalopathy (2) Acute on chronic anemia (3) Hypernatremia ICD Codes: E87.0 - Hyperosmolality and hypernatremia SNOMED: 18708120 (4) VERNA (acute kidney injury) ICD Codes: N17.9 - Acute kidney failure, unspecified SNOMED: 41838081 (5) Tracheostomy dependence ICD Codes: Z93.0 - Tracheostomy status SNOMED: 613471585, 821892060 (6) Seizure ICD Codes: R56.9 - Unspecified convulsions SNOMED: 21978175 (7) HTN (hypertension) ICD Codes: I10 - Essential (primary) hypertension SNOMED: 13691523 (8) CVA (cerebral vascular accident) ICD Codes: I63.9 - Cerebral infarction, unspecified SNOMED: 363684566 (9) Functional quadriplegia ICD Codes: R53.2 - Functional quadriplegia SNOMED: 094047241716338 (10) Ovarian cancer ICD Codes: C56.9 - Malignant neoplasm of unspecified ovary SNOMED: 853294932 (11) Brain metastases ICD Codes: C79.31 - Secondary malignant neoplasm of brain SNOMED: 12056652 (12) PUD (peptic ulcer disease) ICD Codes: K27.9 - Peptic ulcer, site unspecified, unspecified as acute or chronic, without hemorrhage or perforation SNOMED: 09001338 (13) Leukocytosis ICD Codes: D72.829 - Elevated white blood cell count, unspecified SNOMED: 386581519, 885174858 Qualifiers: Qualified Codes: D72.829 - Elevated white blood cell count, unspecified (14) Left ischial tuberosity stage III pressure ulcer (15) Sacrococcygeal unstageable pressure ulcer with extensive full thickness scar tissue Status: stable Assessment/Plan GI consulted Transfuse 1U pRBC today Transfuse for hgb<7 PPI BID Monitor for signs of bleeding Pulm consulted Cont vent IVFs for hypernatremia Hold home lasix given VERNA s/p levaquin in ED on 06/03 Will hold abx for now given no clear infectious source F/u cultures Cont other home meds including AEDs Pain control, supportive care, bowel regimen Cont tube feeds via PEG Cont wound care for pressure ulcers DVT Prophylaxis: SCD Code Status: Full Hospital Classification Declaration: Based on this initial evaluation, and depending on the patient's clinical course, I anticipate that this patient will require hospitalization for 2-3 days for AMS, anemia, hypernatremia, VERNA and close respiratory/hemodynamic monitoring. Disposition: Once the patient is stable to leave the hospital, I anticipate the patient will likely be discharged to the following environment: home with HH + CG vs SNF I spent 42 minutes on this patient's case, and 25 minutes were dedicated to counseling and/or care coordination. Discussed with patient/family, nursing staff, SW/CM, GI, pulm regarding clinical status, treatment course, and disposition planning. Time of note may not reflect time of encounter. Subjective Date patient seen: Jun 04, 2017 Time patient seen: 15:00 ROS Limited/Unobtainable: Yes Allergies: Coded Allergies: DEXAMETHASONE (Unverified Allergy, Unknown, 07/10/15) Subjective Hgb 6.3 this AM from 7.8 -->1 unit pRBC transfusing No e/o active bleeding Na and SCr improved Pt cont to be poorly responsive to voice and pain, non-verbal at baseline Per daughter, pt sometimes follows simple commands Objective Last 24 Hour Vital Signs Date Time Temp Pulse Resp B/P (MAP) Pulse Ox O2 Delivery O2 Flow Rate FiO2 06/04/17 19:46 59 16 100 Mechanical Ventilator 35 06/04/17 19:25 35 06/04/17 19:25 55 22 100 Mechanical Ventilator 35 06/04/17 19:22 55 22 35 06/04/17 17:06 61 21 35 06/04/17 16:00 61 06/04/17 16:00 98.7 70 20 146/76 100 Mechanical Ventilator 35 06/04/17 16:00 35 06/04/17 14:55 60 25 35 06/04/17 13:04 69 18 100 Mechanical Ventilator 35 06/04/17 12:52 69 20 100 Mechanical Ventilator 35 06/04/17 12:50 64 20 35 06/04/17 12:00 67 06/04/17 12:00 35 06/04/17 11:52 98.1 68 22 137/75 100 Mechanical Ventilator 35 06/04/17 10:32 69 18 35 06/04/17 09:54 68 135/72 06/04/17 09:53 68 135/72 06/04/17 08:47 68 16 35 06/04/17 08:30 70 06/04/17 08:00 98.1 71 20 135/72 100 Mechanical Ventilator 35 06/04/17 08:00 35 06/04/17 07:13 67 16 35 06/04/17 05:03 68 16 35 06/04/17 04:00 35 06/04/17 04:00 97.8 71 22 124/66 100 Mechanical Ventilator 35 06/04/17 03:08 69 23 35 06/04/17 01:29 76 22 35 06/04/17 00:00 35 06/04/17 00:00 66 06/04/17 00:00 98.1 68 24 102/72 100 Mechanical Ventilator 35 06/03/17 23:12 73 23 35 06/03/17 22:20 72 06/03/17 21:12 69 21 35 06/03/17 20:51 72 138/68 Intake and Output 06/04/17 06/05/17 19:00 07:00 Intake Total 675 ml Balance 675 ml Intake IV Total 675 ml # Voids 3 # Bowel Movements 3 Laboratory Tests 06/04/17 04:00: Vitamin D 25-Hydroxy [Pending], 25-Hydroxy Vitamin D2 [Pending], 25-Hydroxy Vitamin D3 [Pending], Folate [Pending] 06/04/17 04:01: White Blood Count 11.4H, Red Blood Count 1.87L, Hemoglobin 6.3*L, Hematocrit 19.2L, Mean Corpuscular Volume 103H, Mean Corpuscular Hemoglobin 33.5H, Mean Corpuscular Hemoglobin Concent 32.7, Red Cell Distribution Width 13.6, Platelet Count 147L, Mean Platelet Volume 10.8H, Neutrophils (%) (Auto) , Lymphocytes (% ) (Auto) , Monocytes (%) (Auto) , Eosinophils (%) (Auto) , Basophils (%) (Auto) , Differential Total Cells Counted 100, Neutrophils % (Manual) 50, Lymphocytes % (Manual) 37, Monocytes % (Manual) 3, Eosinophils % (Manual) 10H, Basophils % ( Manual) 0, Band Neutrophils 0, Platelet Estimate Adequate, Platelet Morphology Normal, Hypochromasia 1+, Anisocytosis 1+, Macrocytosis 1+, Sodium Level 147H, Potassium Level 3.6, Chloride Level 117H, Carbon Dioxide Level 19L, Anion Gap 11 , Blood Urea Nitrogen 24H, Creatinine 0.9, Estimat Glomerular Filtration Rate , Glucose Level 102, Calcium Level 8.8, Phosphorus Level 3.9, Magnesium Level 2.2 , Iron Level 49, Total Iron Binding Capacity 105L, Percent Iron Saturation 47, Unsaturated Iron Binding 56L, Ferritin 2463H, Total Bilirubin 0.2, Direct Bilirubin 0.1, Aspartate Amino Transf (AST/SGOT) 34, Alanine Aminotransferase ( ALT/SGPT) 53H, Alkaline Phosphatase 192H, Total Protein 7.2, Albumin 3.1L, Vitamin B12 Level > 2000H, Thyroid Stimulating Hormone (TSH) 1.980 06/04/17 09:40: Erythrocyte Sedimentation Rate 150H, Reticulocyte Count 1.3, Prothrombin Time 11.1, Prothromb Time International Ratio 1.1, Activated Partial Thromboplast Time 27, Lactate Dehydrogenase 201, Carcinoembryonic Antigen 9.6H, CA 15-3 Antigen [Pending], CA 19-9 Antigen 0.600, CA 27.29 [Pending], CA 125 Antigen [ Pending] Height (Feet): 4 Height (Inches): 10.00 Weight (Pounds): 120 Objective General: unresponsive, non-verbal at baseline Head: normocephalic, without obvious abnormality, atraumatic Eyes: conjunctivae/corneas clear. PERRL, EOM's intact Throat: lips, mucosa, and tongue normal. MMM Neck: supple, symmetrical, trachea midline, and no JVD, +trach Lungs: clear to auscultation bilaterally Heart: regular rate and rhythm, S1, S2 normal, no murmur, click, rub or gallop Abdomen: soft, non-tender, non-distended, bowel sounds normal; +G tube c/d/i Extremities: extremities normal, atraumatic, no cyanosis or edema Pulses: 2+ and symmetric Skin: skin color, texture, turgor normal; no rashes or lesions Neurologic: grossly normal, no focal deficits Niki Rodriguez M.D. Jun 04, 2017 20:08
[2017-06-04] MEDS: Donepezil 5mg Tab GT SCH (20:22)
[2017-06-04] MEDS: Sertraline 50mg tab GT SCH (20:22)
[2017-06-04 20:23] VITALS: BP 145/75
[2017-06-04] MEDS: Phenytoin 100mg cap ORAL SCH (20:23)
--- NOTE | 2017-06-04 22:00 | Consultation ---
DATE OF CONSULTATION: 06/04/2017 CHIEF COMPLAINT: Anemia. HISTORY OF PRESENT ILLNESS: Most of the history was obtained per chart. This is a 71-year-old unfortunate female with multiple medical problems including history of bleeding and peptic ulcer disease in the past, history of CVA, dysphagia requiring trach and PEG, history of urinary tract infections and urosepsis, history of ovarian cancer with metastasis to the brain requiring surgery for both and now apparently, the patient is at home with the family. The patient has been altered for last few days and her hemoglobin was down to 7, so the patient was transferred to the hospital with possible GI bleeding, although per family and per chart, there is no obvious melena or hematochezia. Apparently, the patient carries history of chronic anemia. PAST MEDICAL HISTORY: 1. Metastatic ovarian cancer, status post OLIVERIO/SBO, also chemo treatment. 2. Brain metastasis requiring surgery. 3. Respiratory failure, to have trach and now is on collar. 4. Dysphagia requiring G-tube placement. 5. CVA. 6. Anemia. 7. Urosepsis. 8. Seizures. PAST SURGICAL HISTORY: As above. MEDICATIONS: Please see medication reconciliation list. ALLERGIES: Dexamethasone. SOCIAL HISTORY: Currently lives at home with a very supportive family. No recent history of tobacco, alcohol, or drug abuse. REVIEW OF SYSTEMS: Unable to obtain. PHYSICAL EXAMINATION: VITAL SIGNS: Temperature 98.1, pulse 70, respirations 16, and blood pressure 124/72. HEENT: Normocephalic and atraumatic. Sclerae anicteric. NECK: Supple. No lymphadenopathy. CARDIOVASCULAR: Regular rhythm. Plus S1 and S2. LUNGS: Decreased breath sounds bilaterally and diffusely. ABDOMEN: Soft and nontender. G-tube in place. No rebound. No guarding. No peritoneal sign. EXTREMITIES: No cyanosis. No clubbing. No edema. LABORATORY DATA: White count 11.4, hemoglobin 6.2, hematocrit 19, MCV of 103, and platelets 147,000. Chem-7, BUN 24, creatinine 0.9. Alkaline phosphatase is elevated at 192. ASSESSMENT: This is a 71-year-old female with multiple medical problems. See the history and physical for details. From gastrointestinal standpoint, issue would be anemia, history of peptic ulcer disease, questionable gastrointestinal bleeding. According to the nurses today, there is no obvious overt bleeding. The patient is getting blood transfusion. PLAN: Plan is to lavage the G-tube with 500 mL of water to see if there is any active bleeding in the stomach. If not, we are going to resume the G-tube feeding and then we will do the anemia workup including B12, folate, stool for occult blood, iron panel and we will monitor the patient carefully. We will consider doing GI procedure since there is obvious evidence of GI bleeding. I want to thank, Dr. Alvarez, for this kind referral. Yinka Tejada M.D. DR: ANGIE JOB#: [id number] CC: Katy Alvarez M.D.; Fax#: [phone]
[2017-06-05] VITALS: BP 139/75
[2017-06-05] MEDS: Budesonide HHN 0.25mg/2ml ud HHN SCH ×2 (00:26→08:45)
[2017-06-05] MEDS: DuoNeb 0.5-3(2.5)mg/3ml neb HHN SCH ×4 (01:02→19:19)
[2017-06-05 04:00] VITALS: BP 140/66
[2017-06-05 05:13] LABS: BASOPHILS % (AUTO) 0.6 % (0.0-2.0); EOSINOPHILS % (AUTO) 6.1 % (0.0-3.0); LYMPHOCYTES % (AUTO) 26.2 % (20.0-45.0); MEAN CORPUSCULAR HEMOGLOBIN 32.4 PG (27.0-31.0); MEAN CORPUSCULAR HGB CONC 33.8 G/DL (32.0-36.0); MEAN CORPUSCULAR VOLUME 96 FL (80-99); MEAN PLATELET VOLUME 10.4 FL (6.5-10.1); PLATELET COUNT 133 K/UL (150-450); RED BLOOD COUNT 2.83 M/UL (4.20-5.40); WHITE BLOOD COUNT 11.2 K/UL (4.8-10.8)
[2017-06-05 05:33] LABS: ALANINE AMINOTRANSFERASE 41 U/L (3-33); ALBUMIN/GLOBULIN RATIO 0.6 (1.0-2.7); ANION GAP 15 (5-15); ASPARTATE AMINO TRANSFERASE 33 U/L (5-40); CALCIUM 8.7 mg/dL (8.6-10.2); CARBON DIOXIDE 17 mEQ/L (20-30); CHLORIDE 109 mEQ/L (98-107); CREATININE 0.7 mg/dL (0.5-0.9); HEMOLYSIS 6; POTASSIUM 3.5 mEQ/L (3.4-4.9); SODIUM 141 mEQ/L (135-145); TOTAL PROTEIN 7.1 g/dL (6.6-8.7)
[2017-06-05 08:00] VITALS: BP 119/67
--- NOTE | 2017-06-05 08:09 | General Progress Note ---
Assessment/Plan Problem List: (1) CVA (cerebral vascular accident) ICD Codes: I63.9 - Cerebral infarction, unspecified SNOMED: 543883599 (2) Dysphagia ICD Codes: R13.10 - Dysphagia, unspecified SNOMED: 62368397, 656613178 (3) Anemia ICD Codes: D64.9 - Anemia, unspecified SNOMED: 519759067 Qualifiers: Qualified Codes: D64.9 - Anemia, unspecified (4) Gastrointestinal bleed ICD Codes: K92.2 - Gastrointestinal hemorrhage, unspecified SNOMED: 93559402 (5) Elevated CEA ICD Codes: R97.0 - Elevated carcinoembryonic antigen [CEA] SNOMED: 70176019, 122289504 Assessment/Plan stable H&H start GTF meléndez ct to eval for elevated CEA GI procedures on hold fu stool ob Subjective ROS Limited/Unobtainable: No Allergies: Coded Allergies: DEXAMETHASONE (Unverified Allergy, Unknown, 07/10/15) Objective Last 24 Hour Vital Signs Date Time Temp Pulse Resp B/P (MAP) Pulse Ox O2 Delivery O2 Flow Rate FiO2 06/05/17 06:35 63 22 35 06/05/17 06:35 63 22 100 Mechanical Ventilator 35 06/05/17 06:25 62 22 100 Mechanical Ventilator 35 06/05/17 06:25 35 06/05/17 05:10 58 22 35 06/05/17 04:00 58 06/05/17 04:00 98.5 58 20 140/66 100 Mechanical Ventilator 35 06/05/17 04:00 35 06/05/17 03:24 59 16 35 06/05/17 01:03 35 06/05/17 01:03 59 16 100 Mechanical Ventilator 35 06/05/17 01:02 53 16 100 Mechanical Ventilator 35 06/05/17 01:00 56 16 35 06/05/17 00:26 35 06/05/17 00:26 58 23 100 Mechanical Ventilator 35 06/05/17 00:01 58 06/05/17 00:00 35 06/05/17 00:00 98.0 58 20 139/75 100 Mechanical Ventilator 35 06/04/17 22:45 58 24 35 06/04/17 21:31 58 06/04/17 21:08 52 24 35 06/04/17 20:23 98.6 56 20 145/75 100 Mechanical Ventilator 35 06/04/17 20:21 56 145/75 06/04/17 20:00 35 06/04/17 19:46 59 16 100 Mechanical Ventilator 35 06/04/17 19:25 35 06/04/17 19:25 55 22 100 Mechanical Ventilator 35 06/04/17 19:22 55 22 35 06/04/17 17:06 61 21 35 06/04/17 16:00 61 06/04/17 16:00 98.7 70 20 146/76 100 Mechanical Ventilator 35 06/04/17 16:00 35 06/04/17 14:55 60 25 35 06/04/17 13:04 69 18 100 Mechanical Ventilator 35 06/04/17 12:52 69 20 100 Mechanical Ventilator 35 06/04/17 12:50 64 20 35 06/04/17 12:00 67 06/04/17 12:00 35 06/04/17 11:52 98.1 68 22 137/75 100 Mechanical Ventilator 06/04/17 10:32 69 18 35 06/04/17 09:54 68 135/72 06/04/17 09:53 68 135/72 06/04/17 08:47 68 16 35 06/04/17 08:30 70 Laboratory Tests 06/04/17 09:40: Erythrocyte Sedimentation Rate 150H, Reticulocyte Count 1.3, Prothrombin Time 11.1, Prothromb Time International Ratio 1.1, Activated Partial Thromboplast Time 27, Lactate Dehydrogenase 201, Carcinoembryonic Antigen 9.6H, CA 15-3 Antigen [Pending], CA 19-9 Antigen 0.600, CA 27.29 [Pending], CA 125 Antigen [ Pending] 06/05/17 04:45: White Blood Count 11.2H, Red Blood Count 2.83L, Hemoglobin 9.2#L, Hematocrit 27.1#L, Mean Corpuscular Volume 96, Mean Corpuscular Hemoglobin 32.4H, Mean Corpuscular Hemoglobin Concent 33.8, Red Cell Distribution Width 14.0, Platelet Count 133L, Mean Platelet Volume 10.4H, Neutrophils (%) (Auto) 59.0, Lymphocytes (%) (Auto) 26.2, Monocytes (%) (Auto) 8.0, Eosinophils (%) (Auto) 6.1H, Basophils (%) (Auto) 0.6, Sodium Level 141, Potassium Level 3.5, Chloride Level 109H, Carbon Dioxide Level 17L, Anion Gap 15, Blood Urea Nitrogen 16, Creatinine 0.7, Estimat Glomerular Filtration Rate , Glucose Level 100, Calcium Level 8.7, Total Bilirubin 0.4, Aspartate Amino Transf (AST/SGOT) 33, Alanine Aminotransferase (ALT/SGPT) 41H, Alkaline Phosphatase 200H, Total Protein 7.1, Albumin 2.9L, Globulin 4.2, Albumin/Globulin Ratio 0.6L Height (Feet): 4 Height (Inches): 10.00 Weight (Pounds): 120 General Appearance: lethargic EENT: normal ENT inspection Neck: supple Cardiovascular: normal rate Respiratory/Chest: decreased breath sounds Abdomen: normal bowel sounds, non tender, soft Extremities: non-tender EDIE LIRIANO Jun 05, 2017 08:08
[2017-06-05] MEDS: levETIRAcetam 500mg/5ml Liquid GT SCH ×2 (09:08→18:20)
[2017-06-05] MEDS: Docusate 100mg/10ml Liq GT SCH ×2 (09:09→18:20)
[2017-06-05] MEDS: Topiramate 100mg tab GT SCH ×2 (09:09→21:59)
[2017-06-05] MEDS: Metoprolol 25mg tab GT SCH ×2 (09:09→21:58)
[2017-06-05] MEDS: Zinc Sulfate 220mg cap ORAL SCH (09:09)
[2017-06-05] MEDS: Ascorbic Acid 500mg tab ORAL SCH (09:10)
[2017-06-05] MEDS: Lacosamide 100 MG TABLET ORAL SCH ×2 (09:13→22:00)
--- NOTE | 2017-06-05 11:21 | Pulmonology Progress Note ---
Assessment/Plan Problems: (1) Sepsis (2) Anemia (3) Chronic respiratory disease (4) Elevated CEA (5) Tracheostomy dependence Respiratory: monitor respiratory rate, adjust FIO2, CXR Cardiac: continue to monitor HR/BP Renal: F/U I&O Infectious Disease: check cultures Gastrointestinal: continue feedings/current rate Endocrine: monitor blood sugar, check TSH, continue sliding scale insulin Hematologic: monitor H/H, transfuse if hgb<8.5 Neurologic: PRN Morphine, keep patient comfortable Prophylaxis: Protonix Notes Reviewed: floors buffer, renal Discussed with: nurses, consultants, case operator Subjective ROS Limited/Unobtainable: No Constitutional: Reports: no symptoms HEENT: Repors: no symptoms Respiratory: Reports: no symptoms Cardiovascular: Reports: no symptoms Allergies: Coded Allergies: DEXAMETHASONE (Unverified Allergy, Unknown, 07/10/15) Objective Last 24 Hour Vital Signs Date Time Temp Pulse Resp B/P (MAP) Pulse Ox O2 Delivery O2 Flow Rate FiO2 06/05/17 10:53 53 16 35 06/05/17 09:10 63 119/67 06/05/17 09:09 63 119/67 06/05/17 08:48 63 22 35 06/05/17 08:47 63 16 100 Mechanical Ventilator 35 06/05/17 08:30 35 06/05/17 08:30 65 16 100 Mechanical Ventilator 35 06/05/17 08:00 66 06/05/17 08:00 35 06/05/17 08:00 97.9 65 16 119/67 100 Mechanical Ventilator 35 06/05/17 06:35 63 22 35 06/05/17 06:35 63 22 100 Mechanical Ventilator 35 06/05/17 06:25 62 22 100 Mechanical Ventilator 35 06/05/17 06:25 35 06/05/17 05:10 58 22 35 06/05/17 04:00 58 06/05/17 04:00 98.5 58 20 140/66 100 Mechanical Ventilator 35 06/05/17 04:00 35 06/05/17 03:24 59 16 35 06/05/17 01:03 35 06/05/17 01:03 59 16 100 Mechanical Ventilator 35 06/05/17 01:02 53 16 100 Mechanical Ventilator 35 06/05/17 01:00 56 16 35 06/05/17 00:26 35 06/05/17 00:26 58 23 100 Mechanical Ventilator 35 06/05/17 00:01 58 06/05/17 00:00 35 06/05/17 00:00 98.0 58 20 139/75 100 Mechanical Ventilator 35 06/04/17 22:45 58 24 35 06/04/17 21:31 58 06/04/17 21:08 52 24 35 06/04/17 20:23 98.6 56 20 145/75 100 Mechanical Ventilator 35 06/04/17 20:21 56 145/75 06/04/17 20:00 35 06/04/17 19:46 59 16 100 Mechanical Ventilator 35 06/04/17 19:25 35 06/04/17 19:25 55 22 100 Mechanical Ventilator 35 06/04/17 19:22 55 22 35 06/04/17 17:06 61 21 35 06/04/17 16:00 61 06/04/17 16:00 98.7 70 20 146/76 100 Mechanical Ventilator 35 06/04/17 16:00 35 06/04/17 14:55 60 25 35 06/04/17 13:04 69 18 100 Mechanical Ventilator 35 06/04/17 12:52 69 20 100 Mechanical Ventilator 35 06/04/17 12:50 64 20 35 06/04/17 12:00 67 06/04/17 12:00 35 06/04/17 11:52 98.1 68 22 137/75 100 Mechanical Ventilator 35 Intake and Output 06/05/17 06/06/17 19:00 07:00 Intake Total 225 ml Balance 225 ml Intake IV Total 225 ml General Appearance: WD/WN HEENT: normocephalic, atraumatic Respiratory/Chest: chest wall non-tender, lungs clear Cardiovascular: normal peripheral pulses, normal rate Abdomen: normal bowel sounds, soft, non tender Genitourinary: normal external genitalia Extremities: no cyanosis Skin: no rash, no ulcers 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 Complete 06/03/17 17:15 Rectum VRE Culture - Final Enterococcus Faecalis - Vre Complete Laboratory Tests 06/05/17 04:45: White Blood Count 11.2H, Red Blood Count 2.83L, Hemoglobin 9.2#L, Hematocrit 27.1#L, Mean Corpuscular Volume 96, Mean Corpuscular Hemoglobin 32.4H, Mean Corpuscular Hemoglobin Concent 33.8, Red Cell Distribution Width 14.0, Platelet Count 133L, Mean Platelet Volume 10.4H, Neutrophils (%) (Auto) 59.0, Lymphocytes (%) (Auto) 26.2, Monocytes (%) (Auto) 8.0, Eosinophils (%) (Auto) 6.1H, Basophils (%) (Auto) 0.6, Sodium Level 141, Potassium Level 3.5, Chloride Level 109H, Carbon Dioxide Level 17L, Anion Gap 15, Blood Urea Nitrogen 16, Creatinine 0.7, Estimat Glomerular Filtration Rate , Glucose Level 100, Calcium Level 8.7, Total Bilirubin 0.4, Aspartate Amino Transf (AST/SGOT) 33, Alanine Aminotransferase (ALT/SGPT) 41H, Alkaline Phosphatase 200H, Total Protein 7.1, Albumin 2.9L, Globulin 4.2, Albumin/Globulin Ratio 0.6L Current Medications Medications (Trade) Dose Ordered Sig/Ludivina Route PRN Reason Start Time Stop Time Status Last Admin Dose Admin Acetaminophen (Tylenol) 650 mg Q4H PRN ORAL Mild Pain (Pain Scale 1-3) 06/03/17 17:30 07/03/17 17:29 Albuterol/ Ipratropium (DuoNeb 0.5-3(2.5)mg/3ml) 3 ml Q6HRT [facility] 06/04/17 13:00 06/09/17 12:59 06/05/17 06:49 Amlodipine Besylate (Norvasc) 5 mg DAILY GT 06/04/17 09:00 07/04/17 08:59 06/05/17 09:10 Ascorbic Acid (Vitamin C) 500 mg DAILY ORAL 06/04/17 09:00 07/04/17 08:59 06/05/17 09:10 Budesonide (Pulmicort) 0.25 mg Q12HRT [facility] 06/04/17 10:00 07/04/17 09:59 06/05/17 08:45 Clonidine HCl (Catapres) 0.1 mg Q6H PRN GT For SBP>180 06/04/17 09:00 07/04/17 08:59 Dextrose (Dextrose 50%) STAT PRN IV Hypoglycemia 06/03/17 17:30 07/03/17 17:29 Docusate Sodium (Colace) 100 mg TWICE A DAY GT 06/04/17 09:30 07/04/17 09:29 06/05/17 09:09 Donepezil HCl (Aricept) 5 mg BEDTIME GT 06/04/17 21:00 07/04/17 20:59 06/04/17 20:22 Folic Acid (Folate) 1 mg DAILY GT 06/04/17 09:00 07/04/17 08:59 06/05/17 09:10 Lacosamide (Vimpat) 200 mg Q12HR ORAL 06/04/17 11:00 07/04/17 10:59 06/05/17 09:13 Lansoprazole (Prevacid) 30 mg Q12HR GT 06/04/17 10:00 07/04/17 09:59 06/05/17 09:09 Levetiracetam (Keppra) 1,500 mg BID GT 06/04/17 09:00 07/04/17 08:59 06/05/17 09:08 Metoprolol Tartrate (Lopressor) 25 mg EVERY 12 HOURS GT 06/03/17 21:00 07/03/17 20:59 06/05/17 09:09 Phenytoin (Dilantin) 300 mg BEDTIME ORAL 06/04/17 21:00 07/04/17 20:59 06/04/17 20:23 Sertraline HCl (Zoloft) 50 mg BEDTIME GT 06/04/17 21:00 07/04/17 20:59 06/04/17 20:22 Sodium Chloride 1,000 ml @ 75 mls/hr [id number] IV 06/03/17 18:30 07/03/17 18:29 06/04/17 22:01 Topiramate (Topamax) 150 mg Q12HR GT 06/04/17 09:00 07/04/17 08:59 06/05/17 09:09 Zinc Sulfate (Zinc Sulfate) 220 mg DAILY ORAL 06/04/17 09:00 07/04/17 08:59 06/05/17 09:09 BENJY CARMEN Jun 05, 2017 11:21
[2017-06-05 12:02] VITALS: BP 144/70
[2017-06-05 12:33] LABS: CA 27.29 95.3 U/mL (0.0-38.6)
--- NOTE | 2017-06-05 13:59 | General Progress Note ---
Assessment/Plan Problem List: (1) Acute toxic metabolic encephalopathy (2) Acute on chronic anemia (3) Hypernatremia ICD Codes: E87.0 - Hyperosmolality and hypernatremia SNOMED: 25782449 (4) VERNA (acute kidney injury) ICD Codes: N17.9 - Acute kidney failure, unspecified SNOMED: 83080964 (5) Tracheostomy dependence ICD Codes: Z93.0 - Tracheostomy status SNOMED: 757256586, 201621317 (6) Seizure ICD Codes: R56.9 - Unspecified convulsions SNOMED: 98327201 (7) HTN (hypertension) ICD Codes: I10 - Essential (primary) hypertension SNOMED: 85300897 (8) CVA (cerebral vascular accident) ICD Codes: I63.9 - Cerebral infarction, unspecified SNOMED: 105078090 (9) Functional quadriplegia ICD Codes: R53.2 - Functional quadriplegia SNOMED: 337342092702630 (10) Ovarian cancer ICD Codes: C56.9 - Malignant neoplasm of unspecified ovary SNOMED: 092633476 (11) Brain metastases ICD Codes: C79.31 - Secondary malignant neoplasm of brain SNOMED: 17735491 (12) PUD (peptic ulcer disease) ICD Codes: K27.9 - Peptic ulcer, site unspecified, unspecified as acute or chronic, without hemorrhage or perforation SNOMED: 21353693 (13) Leukocytosis ICD Codes: D72.829 - Elevated white blood cell count, unspecified SNOMED: 484029146, 619117295 Qualifiers: Qualified Codes: D72.829 - Elevated white blood cell count, unspecified (14) Left ischial tuberosity stage III pressure ulcer (15) Sacrococcygeal unstageable pressure ulcer with extensive full thickness scar tissue Status: stable Assessment/Plan GI consulted s/p 1U pRBC transfusion 06/04 Transfuse for hgb<[address] A/P given elevated tumor markers Monitor for signs of bleeding Pulm consulted Cont vent IVFs for hypernatremia Hold home lasix given VERNA s/p levaquin in ED on 06/03 Will hold abx for now given no clear infectious source F/u cultures Cont other home meds including AEDs Pain control, supportive care, bowel regimen Cont tube feeds via PEG Cont wound care for pressure ulcers DVT Prophylaxis: SCD Code Status: Full Hospital Classification Declaration: Based on this initial evaluation, and depending on the patient's clinical course, I anticipate that this patient will require hospitalization for 2-3 days for AMS, anemia, hypernatremia, VERNA and close respiratory/hemodynamic monitoring. Disposition: Once the patient is stable to leave the hospital, I anticipate the patient will likely be discharged to the following environment: home with HH + CG vs SNF I spent 42 minutes on this patient's case, and 22 minutes were dedicated to counseling and/or care coordination. Discussed with patient/family, nursing staff, SW/CM, GI, pulm regarding clinical status, treatment course, and disposition planning. Time of note may not reflect time of encounter. Subjective Date patient seen: Jun 05, 2017 Time patient seen: 13:59 ROS Limited/Unobtainable: Yes Allergies: Coded Allergies: DEXAMETHASONE (Unverified Allergy, Unknown, 07/10/15) Subjective Hgb 9 this after pRBC transfusion yesterday No e/o active bleeding GT lavage neg Na and SCr improved Pt cont to be poorly responsive to voice and pain, non-verbal at baseline Per daughter, pt sometimes follows simple commands Unable to obtain ROS given AMS Objective Last 24 Hour Vital Signs Date Time Temp Pulse Resp B/P (MAP) Pulse Ox O2 Delivery O2 Flow Rate FiO2 06/05/17 12:59 64 22 35 06/05/17 12:59 64 22 100 Mechanical Ventilator 35 06/05/17 12:55 35 06/05/17 12:55 68 22 100 Mechanical Ventilator 35 06/05/17 12:29 56 06/05/17 12:02 98.1 57 16 144/70 100 Mechanical Ventilator 35 06/05/17 12:00 35 06/05/17 10:53 53 16 35 06/05/17 09:10 63 119/67 06/05/17 09:09 63 119/67 06/05/17 08:48 63 22 35 06/05/17 08:47 63 16 100 Mechanical Ventilator 35 06/05/17 08:30 35 06/05/17 08:30 65 16 100 Mechanical Ventilator 35 06/05/17 08:00 66 06/05/17 08:00 35 06/05/17 08:00 97.9 65 16 119/67 100 Mechanical Ventilator 35 06/05/17 06:35 63 22 35 06/05/17 06:35 63 22 100 Mechanical Ventilator 35 06/05/17 06:25 62 22 100 Mechanical Ventilator 35 06/05/17 06:25 35 06/05/17 05:10 58 22 35 06/05/17 04:00 58 06/05/17 04:00 98.5 58 20 140/66 100 Mechanical Ventilator 35 06/05/17 04:00 35 06/05/17 03:24 59 16 35 06/05/17 01:03 35 06/05/17 01:03 59 16 100 Mechanical Ventilator 35 06/05/17 01:02 53 16 100 Mechanical Ventilator 35 06/05/17 01:00 56 16 35 06/05/17 00:26 35 06/05/17 00:26 58 23 100 Mechanical Ventilator 35 06/05/17 00:01 58 06/05/17 00:00 35 06/05/17 00:00 98.0 58 20 139/75 100 Mechanical Ventilator 35 06/04/17 22:45 58 24 35 06/04/17 21:31 58 06/04/17 21:08 52 24 35 06/04/17 20:23 98.6 56 20 145/75 100 Mechanical Ventilator 35 06/04/17 20:21 56 145/75 06/04/17 20:00 35 06/04/17 19:46 59 16 100 Mechanical Ventilator 35 06/04/17 19:25 35 06/04/17 19:25 55 22 100 Mechanical Ventilator 35 06/04/17 19:22 55 22 35 06/04/17 17:06 61 21 35 06/04/17 16:00 61 06/04/17 16:00 98.7 70 20 146/76 100 Mechanical Ventilator 35 06/04/17 16:00 35 06/04/17 14:55 60 25 35 Intake and Output 06/05/17 06/06/17 19:00 07:00 Intake Total 225 ml Output Total 1160 ml Balance -935 ml Intake IV Total 225 ml Output Urine Total 1160 ml Laboratory Tests 06/05/17 04:45: White Blood Count 11.2H, Red Blood Count 2.83L, Hemoglobin 9.2#L, Hematocrit 27.1#L, Mean Corpuscular Volume 96, Mean Corpuscular Hemoglobin 32.4H, Mean Corpuscular Hemoglobin Concent 33.8, Red Cell Distribution Width 14.0, Platelet Count 133L, Mean Platelet Volume 10.4H, Neutrophils (%) (Auto) 59.0, Lymphocytes (%) (Auto) 26.2, Monocytes (%) (Auto) 8.0, Eosinophils (%) (Auto) 6.1H, Basophils (%) (Auto) 0.6, Sodium Level 141, Potassium Level 3.5, Chloride Level 109H, Carbon Dioxide Level 17L, Anion Gap 15, Blood Urea Nitrogen 16, Creatinine 0.7, Estimat Glomerular Filtration Rate , Glucose Level 100, Calcium Level 8.7, Total Bilirubin 0.4, Aspartate Amino Transf (AST/SGOT) 33, Alanine Aminotransferase (ALT/SGPT) 41H, Alkaline Phosphatase 200H, Total Protein 7.1, Albumin 2.9L, Globulin 4.2, Albumin/Globulin Ratio 0.6L Height (Feet): 4 Height (Inches): 10.00 Weight (Pounds): 120 Objective General: unresponsive, non-verbal at baseline Head: normocephalic, without obvious abnormality, atraumatic Eyes: conjunctivae/corneas clear. PERRL, EOM's intact Throat: lips, mucosa, and tongue normal. MMM Neck: supple, symmetrical, trachea midline, and no JVD, +trach Lungs: clear to auscultation bilaterally Heart: regular rate and rhythm, S1, S2 normal, no murmur, click, rub or gallop Abdomen: soft, non-tender, non-distended, bowel sounds normal; +G tube c/d/i Extremities: extremities normal, atraumatic, no cyanosis or edema Pulses: 2+ and symmetric Skin: skin color, texture, turgor normal; no rashes or lesions Neurologic: grossly normal, no focal deficits Niki Rodriguez M.D. Jun 05, 2017 13:59
[2017-06-05 15:59] VITALS: BP 115/72
[2017-06-05 20:00] VITALS: BP 116/64
[2017-06-05] MEDS: Donepezil 5mg Tab GT SCH (21:58)
[2017-06-05] MEDS: Sertraline 50mg tab GT SCH (21:59)
[2017-06-05] MEDS: Phenytoin 100mg cap ORAL SCH (22:00)
[2017-06-05] MEDS: Miralax 17gm pkt ORAL SCH (22:00)
[2017-06-06] VITALS: BP 123/68
[2017-06-06] MEDS: Budesonide HHN 0.25mg/2ml ud HHN SCH ×2 (00:26→11:59)
[2017-06-06] MEDS: DuoNeb 0.5-3(2.5)mg/3ml neb HHN SCH ×4 (03:34→19:10)
[2017-06-06 04:00] VITALS: BP 123/76
[2017-06-06 04:29] LABS: BASOPHILS % (AUTO) 0.5 % (0.0-2.0); EOSINOPHILS % (AUTO) 7.8 % (0.0-3.0); MEAN CORPUSCULAR HEMOGLOBIN 32.7 PG (27.0-31.0); MEAN CORPUSCULAR HGB CONC 34.7 G/DL (32.0-36.0); MEAN CORPUSCULAR VOLUME 94 FL (80-99); MEAN PLATELET VOLUME 9.7 FL (6.5-10.1); MONOCYTES % (AUTO) 6.8 % (1.0-10.0); NEUTROPHILS % (AUTO) 61.9 % (45.0-75.0); PLATELET COUNT 138 K/UL (150-450); RED BLOOD COUNT 2.44 M/UL (4.20-5.40); RED CELL DISTRIBUTION WIDTH 13.4 % (11.6-14.8); WHITE BLOOD COUNT 10.7 K/UL (4.8-10.8)
[2017-06-06 05:00] LABS: ALANINE AMINOTRANSFERASE 35 U/L (3-33); ALBUMIN/GLOBULIN RATIO 0.6 (1.0-2.7); ANION GAP 16 (5-15); ASPARTATE AMINO TRANSFERASE 29 U/L (5-40); CALCIUM 8.5 mg/dL (8.6-10.2); CARBON DIOXIDE 15 mEQ/L (20-30); CHLORIDE 110 mEQ/L (98-107); CREATININE 0.7 mg/dL (0.5-0.9); HEMOLYSIS 1; POTASSIUM 3.1 mEQ/L (3.4-4.9); SODIUM 141 mEQ/L (135-145)
--- NOTE | 2017-06-06 07:29 | General Progress Note ---
Assessment/Plan Problem List: (1) CVA (cerebral vascular accident) ICD Codes: I63.9 - Cerebral infarction, unspecified SNOMED: 457324785 (2) Dysphagia ICD Codes: R13.10 - Dysphagia, unspecified SNOMED: 67900998, 711259731 (3) Anemia ICD Codes: D64.9 - Anemia, unspecified SNOMED: 886553085 Qualifiers: Qualified Codes: D64.9 - Anemia, unspecified (4) Gastrointestinal bleed ICD Codes: K92.2 - Gastrointestinal hemorrhage, unspecified SNOMED: 23616197 (5) Elevated CEA ICD Codes: R97.0 - Elevated carcinoembryonic antigen [CEA] SNOMED: 92179665, 877577320 Assessment/Plan meléndez ct to eval for elevated CEA >>. pending given anemia, elevated CEA, negative GT lavage >> plan colonoscopy tomorrow fu stool ob monitor H&H prn blood transfusion Subjective ROS Limited/Unobtainable: No Allergies: Coded Allergies: DEXAMETHASONE (Unverified Allergy, Unknown, 07/10/15) Objective Last 24 Hour Vital Signs Date Time Temp Pulse Resp B/P (MAP) Pulse Ox O2 Delivery O2 Flow Rate FiO2 06/06/17 07:26 81 21 100 Mechanical Ventilator 35 06/06/17 07:26 35 06/06/17 07:13 81 21 35 06/06/17 07:13 82 21 100 Mechanical Ventilator 35 06/06/17 05:30 66 21 35 06/06/17 04:00 97.2 61 16 123/76 100 Mechanical Ventilator 35 06/06/17 04:00 35 06/06/17 03:44 60 06/06/17 03:29 56 21 35 06/06/17 01:33 61 16 35 06/06/17 01:13 62 16 100 Mechanical Ventilator 35 06/06/17 00:50 35 06/06/17 00:50 61 16 100 Mechanical Ventilator 35 06/06/17 00:50 59 16 100 Mechanical Ventilator 35 06/06/17 00:40 35 06/06/17 00:40 59 16 100 Mechanical Ventilator 35 06/06/17 00:40 59 16 100 Mechanical Ventilator 35 06/06/17 00:28 35 06/06/17 00:27 59 23 100 Mechanical Ventilator 35 06/06/17 00:24 59 24 35 06/06/17 00:00 62 9/4/17 00:00 35 06/06/17 00:00 97.8 63 23 123/68 100 Mechanical Ventilator 35 06/05/17 21:58 78 116/64 06/05/17 20:31 78 16 35 06/05/17 20:00 35 06/05/17 20:00 98.2 80 16 116/64 100 Mechanical Ventilator 35 06/05/17 19:47 83 06/05/17 19:22 80 16 100 Mechanical Ventilator 35 06/05/17 19:22 35 06/05/17 19:17 80 25 35 06/05/17 16:50 70 23 35 06/05/17 16:00 35 06/05/17 16:00 63 06/05/17 15:59 97.9 64 16 115/72 100 Mechanical Ventilator 35 06/05/17 15:13 73 16 35 06/05/17 12:59 64 22 35 06/05/17 12:59 64 22 100 Mechanical Ventilator 35 06/05/17 12:55 35 06/05/17 12:55 68 22 100 Mechanical Ventilator 35 06/05/17 12:29 56 06/05/17 12:02 98.1 57 16 144/70 100 Mechanical Ventilator 35 06/05/17 12:00 35 06/05/17 10:53 53 16 35 06/05/17 09:10 63 119/67 06/05/17 09:09 63 119/67 06/05/17 08:48 63 22 35 06/05/17 08:47 63 16 100 Mechanical Ventilator 35 06/05/17 08:30 35 06/05/17 08:30 65 16 100 Mechanical Ventilator 35 06/05/17 08:00 66 06/05/17 08:00 35 06/05/17 08:00 97.9 65 16 119/67 100 Mechanical Ventilator 35 Laboratory Tests 06/06/17 03:45: White Blood Count 10.7, Red Blood Count 2.44L, Hemoglobin 8.0L, Hematocrit 23.0L , Mean Corpuscular Volume 94, Mean Corpuscular Hemoglobin 32.7H, Mean Corpuscular Hemoglobin Concent 34.7, Red Cell Distribution Width 13.4, Platelet Count 138L, Mean Platelet Volume 9.7, Neutrophils (%) (Auto) 61.9, Lymphocytes ( %) (Auto) 23.0, Monocytes (%) (Auto) 6.8, Eosinophils (%) (Auto) 7.8H, Basophils (%) (Auto) 0.5, Sodium Level 141, Potassium Level 3.1L, Chloride Level 110H, Carbon Dioxide Level 15L, Anion Gap 16H, Blood Urea Nitrogen 22, Creatinine 0.7, Estimat Glomerular Filtration Rate , Glucose Level 121H, Calcium Level 8.5L, Total Bilirubin 0.3, Aspartate Amino Transf (AST/SGOT) 29, Alanine Aminotransferase (ALT/SGPT) 35H, Alkaline Phosphatase 196H, Total Protein 7.0, Albumin 2.7L, Globulin 4.3, Albumin/Globulin Ratio 0.6L Height (Feet): 4 Height (Inches): 10.00 Weight (Pounds): 120 General Appearance: lethargic EENT: normal ENT inspection Neck: supple Cardiovascular: normal rate Respiratory/Chest: decreased breath sounds Abdomen: normal bowel sounds, non tender, soft Extremities: non-tender EDIE LIRIANO Jun 06, 2017 07:29
[2017-06-06] MEDS ORDERED: KCl 10% 40mEq/30ml liquid GT ONE (08:00)
[2017-06-06 08:09] VITALS: BP 142/80
--- NOTE | 2017-06-06 08:45 | Diagnostic Imaging Report ---
Clinical Indication: Abdominal pain Technique: Patient given enteric contrast. IV administration nonionic contrast. Venous phase spiral acquisition obtained through the abdomen and pelvis. Multiplanar reconstructions were generated. Total dose length product 835 mGycm. CTDIvol(s) 17 mGy. Dose reduction achieved using automated exposure control Comparison: None Findings: The appendix is not visualized, but there are no findings to suggest acute appendicitis. There is a gastrostomy tube in good position. There is apparent free communication between the esophagus and the stomach, and contrast is refluxed over the entire length of the visualized portion of the distal esophagus. The duodenum is unremarkable. Contrast traverses the entirety of the small bowel as well as nearly the entirety of the colon, reaching the distal sigmoid. There is a broad-based ventral hernia containing a few loops of small bowel as well as a knuckle of the transverse colon. This does not appear to be obstructive or strangulating. No small bowel distention or small bowel wall thickening. No free or loculated intraperitoneal air or fluid. The liver is unremarkable. The gallbladder is mildly distended but not thick walled, contains small gallstones. No biliary ductal dilatation. The pancreas is somewhat atrophic. The spleen is unremarkable. A few prominent varices are seen surrounding the spleen within the splenic hilum. No focal abnormality. The splenic vein appears to be patent. The adrenals are unremarkable. The kidneys demonstrate lobulated contours bilaterally. There is a calcified 1 cm aneurysm in the left renal hilum. The uterus is not visualized, although there may be a cervical stump, consistent with prior supracervical hysterectomy. No pelvic mass or adenopathy. No retroperitoneal or mesenteric mass or adenopathy. Visualized lung bases demonstrate atelectasis of most if not all of the right lower lobe. Atelectatic changes are also seen at the left lung base. A calcified granuloma is seen within the right middle lobe. Granulomatous lymph nodes are seen in the subcarinal region. There is an inferior vena cava filter in place. This appears to be in good position, well centered, and the inferior vena cava is patent. This appears to be a temporary filter. There are decubitus changes of the retrocecal/retrococcygeal region as well as evidence of some bone destruction of the sacrococcygeal junction. The remainder of the bones are unremarkable Numerous nodules are seen in the lateral chest campos/upper breasts bilaterally, largest on the left measuring 14 mm diameter. There is dependent edema in the lumbar region. Impression: No evidence of acute abdominal or pelvic process Evidence of sacral decubitus changes. Evidence of osseous destructive change at the sacrococcygeal junction and coccyx concerning for osteomyelitis. Atelectasis of much or perhaps all of the right lower lobe lung. Minimal atelectatic changes are seen at the left lung base Broad-based ventral hernia, containing a few loops of small bowel as well as a knuckle of the transverse colon. No evidence of obstruction or strangulation related to such Inferior vena cava filter in place, no evident complication. Note that this appears to be a temporary filter. Consideration should be given to retrieval if no longer indicated, or replacement with a permanent filter if long-term inferior vena cava filtration is indicated Numerous bilateral breast/chest wall nodules. Suspect on the basis of intramammary nodes. 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
[2017-06-06] MEDS: Docusate 100mg/10ml Liq GT SCH ×2 (11:23→18:13)
[2017-06-06] MEDS: levETIRAcetam 500mg/5ml Liquid GT SCH ×2 (11:24→18:14)
[2017-06-06] MEDS: Topiramate 100mg tab GT SCH ×2 (11:25→21:28)
[2017-06-06] MEDS: Lacosamide 100 MG TABLET ORAL SCH ×2 (11:26→21:29)
[2017-06-06] MEDS: Zinc Sulfate 220mg cap ORAL SCH (11:26)
[2017-06-06] MEDS: Ascorbic Acid 500mg tab ORAL SCH (11:26)
[2017-06-06] MEDS: Metoprolol 25mg tab GT SCH ×2 (11:27→21:28)
[2017-06-06 12:00] VITALS: BP 125/71
[2017-06-06] MEDS ORDERED: Nulytely 4L ORAL ONE (12:00)
--- NOTE | 2017-06-06 13:07 | Pulmonology Progress Note ---
Assessment/Plan Assessment/Plan ASSESSMENT acute toxic metabolic encephalopathy VDRF/trach acute anemia, requiring blood transfusion anemia of chronic disease r/o GI bleeding elevated cancer tumor markers ovarian Ca with brain mets HTN seizure disorder acute kidney injury -resolved ( likely due to dehydration) hypernatremia dehydration HTN hx of CVA Functional quadriplegia Leukocytosis -resolved sacrococcyx decub, POA , un-stageable; Left ischial decub st3 POA PLAN OF CARE HASMUKH status vent support, trach care baseline ABG and titrate settings as needed CXR with R pleural effusion vs pleural thickening fup with CXR in am s/p blood transfusion, anemia w/up c/w with anemia of chronic disease , elevated ferritin monitor HH and transfuse prn check stool OB eelavted CEA-9.6 and CA 27-29- 05.3, CA 19-9 WNL, CA 15-3 , CA 125 and CA 27-23 pending PPI GI follows SCD for mechanical prophylaxis of DVt IVF monitor Na, hyper Na was likely due to dehydration Na down to normal replace K, check K and Mg in am off Lasix given VERNA off abx, no clinical evidence of infection BP management with CCB and BB, optimize as needed seizure precautions continue Dilantin, Keppra, Topamax CT A/P -No evidence of acute abdominal or pelvic process Evidence of sacral decubitus changes. Evidence of osseous destructive change at the sacrococcygeal junction and coccyx concerning for osteomyelitis. w/up for possible osteo- as per PMD discretion wound care as per wound nurse recommendations symptomatic management: pain control, bowel regimen strict aspiration precautions, GT feeding, monitor tolerance case discussed and evaluated by supervising physician Subjective Allergies: Coded Allergies: DEXAMETHASONE (Unverified Allergy, Unknown, 07/10/15) Subjective leukocytosis resolved,afebrile no signs of respiratory distress on current settings K-3.1 HH downtrending -8.0/23.0 Objective Last 24 Hour Vital Signs Date Time Temp Pulse Resp B/P (MAP) Pulse Ox O2 Delivery O2 Flow Rate FiO2 06/06/17 12:00 35 06/06/17 12:00 98.1 79 16 125/71 100 Mechanical Ventilator 35 06/06/17 11:59 78 27 100 Mechanical Ventilator 35 06/06/17 11:27 82 142/80 9/4/17 11:27 82 142/80 06/06/17 08:42 82 15 35 17 08:09 97.9 80 16 142/80 100 Mechanical Ventilator 35 06/06/17 08:00 35 06/06/17 08:00 86 06/06/17 07:26 81 21 100 Mechanical Ventilator 35 06/06/17 07:26 35 /01/17 07:13 81 21 35 17 07:13 82 21 100 Mechanical Ventilator 35 06/06/17 05:30 66 21 35 06/06/17 04:00 97.2 61 16 123/76 100 Mechanical Ventilator 35 06/06/17 04:00 35 06/06/17 03:44 60 06/06/17 03:29 56 21 35 06/06/17 01:33 61 16 35 06/06/17 01:13 62 16 100 Mechanical Ventilator 35 06/06/17 00:50 35 06/06/17 00:50 61 16 100 Mechanical Ventilator 35 06/06/17 00:50 59 16 100 Mechanical Ventilator 35 06/06/17 00:40 35 06/06/17 00:40 59 16 100 Mechanical Ventilator 35 06/06/17 00:40 59 16 100 Mechanical Ventilator 35 06/06/17 00:28 35 06/06/17 00:27 59 23 100 Mechanical Ventilator 35 06/06/17 00:24 59 24 35 06/06/17 00:00 62 06/06/17 00:00 35 06/06/17 00:00 97.8 63 23 123/68 100 Mechanical Ventilator 35 06/05/17 21:58 78 116/64 06/05/17 20:31 78 16 35 06/05/17 20:00 35 06/05/17 20:00 98.2 80 16 116/64 100 Mechanical Ventilator 35 17 19:47 83 //17 19:22 80 16 100 Mechanical Ventilator 35 17 19:22 35 9/3/17 19:17 80 25 35 //17 16:50 70 23 35 9/3/17 16:00 35 /3/17 16:00 63 //17 15:59 97.9 64 16 115/72 100 Mechanical Ventilator 35 06/05/17 15:13 73 16 35 /3/17 12:59 64 22 35 9/3/17 12:59 64 22 100 Mechanical Ventilator 35 06/05/17 12:55 35 06/05/17 12:55 68 22 100 Mechanical Ventilator 35 Intake and Output 06/06/17 06/07/17 19:00 07:00 Intake Total 550 ml Balance 550 ml Intake Free Water 100 ml IV Total 300 ml Tube Feeding 150 ml General Appearance: no acute distress, other - bedridden vent dependent AA female in NAD , SIMB 450-35%-16 HEENT: status post trach - Portex #7, secretions small, white, thin Respiratory/Chest: lungs clear, no respiratory distress, no accessory muscle use Cardiovascular: normal peripheral pulses, normal rate, regular rhythm Abdomen: normal bowel sounds, soft, non tender, other - G tube Genitourinary: other - sacrococcyx and L ishial decub Extremities: other - SCD on Neurologic/Psychiatric: abnormal gait - bedridden , other - L side hemiparesis , not responsive, w/draws to tactile stimuli Musculoskeletal: atrophy - BLE Microbiology Date/Time Source Procedure Growth Status 06/03/17 15:35 Blood Blood Culture - Preliminary NO GROWTH AFTER 48 HOURS Resulted 06/03/17 15:30 Blood Blood Culture - Preliminary NO GROWTH AFTER 48 HOURS Resulted 06/03/17 17:15 Nasal Nares MRSA Culture - Final NO METHICILLIN RESISTANT STAPH AUREUS... Complete 06/03/17 17:15 Rectum VRE Culture - Final Enterococcus Faecalis - Vre Complete Laboratory Tests 06/06/17 03:45: White Blood Count 10.7, Red Blood Count 2.44L, Hemoglobin 8.0L, Hematocrit 23.0L , Mean Corpuscular Volume 94, Mean Corpuscular Hemoglobin 32.7H, Mean Corpuscular Hemoglobin Concent 34.7, Red Cell Distribution Width 13.4, Platelet Count 138L, Mean Platelet Volume 9.7, Neutrophils (%) (Auto) 61.9, Lymphocytes ( %) (Auto) 23.0, Monocytes (%) (Auto) 6.8, Eosinophils (%) (Auto) 7.8H, Basophils (%) (Auto) 0.5, Sodium Level 141, Potassium Level 3.1L, Chloride Level 110H, Carbon Dioxide Level 15L, Anion Gap 16H, Blood Urea Nitrogen 22, Creatinine 0.7, Estimat Glomerular Filtration Rate , Glucose Level 121H, Calcium Level 8.5L, Magnesium Level 2.0, Total Bilirubin 0.3, Aspartate Amino Transf (AST/SGOT) 29, Alanine Aminotransferase (ALT/SGPT) 35H, Alkaline Phosphatase 196H, Total Protein 7.0, Albumin 2.7L, Globulin 4.3, Albumin/ Globulin Ratio 0.6L Current Medications Medications (Trade) Dose Ordered Sig/Ludivina Route PRN Reason Start Time Stop Time Status Last Admin Dose Admin Acetaminophen (Tylenol) 650 mg Q4H PRN ORAL Mild Pain (Pain Scale 1-3) 06/03/17 17:30 07/03/17 17:29 Albuterol/ Ipratropium (DuoNeb 0.5-3(2.5)mg/3ml) 3 ml Q6HRT N 06/04/17 13:00 06/09/17 12:59 06/06/17 07:12 Amlodipine Besylate (Norvasc) 5 mg DAILY GT 06/04/17 09:00 07/04/17 08:59 06/06/17 11:27 Ascorbic Acid (Vitamin C) 500 mg DAILY ORAL 06/04/17 09:00 07/04/17 08:59 06/06/17 11:26 Budesonide (Pulmicort) 0.25 mg Q12HRT N 06/04/17 10:00 07/04/17 09:59 06/06/17 11:59 Clonidine HCl (Catapres) 0.1 mg Q6H PRN GT For SBP>180 06/04/17 09:00 07/04/17 08:59 Dextrose (Dextrose 50%) STAT PRN IV Hypoglycemia 06/03/17 17:30 07/03/17 17:29 Docusate Sodium (Colace) 100 mg TWICE A DAY GT 06/04/17 09:30 07/04/17 09:29 06/06/17 11:23 Donepezil HCl (Aricept) 5 mg BEDTIME GT 06/04/17 21:00 07/04/17 20:59 06/05/17 21:58 Folic Acid (Folate) 1 mg DAILY GT 06/04/17 09:00 07/04/17 08:59 06/06/17 11:26 Lacosamide (Vimpat) 200 mg Q12HR ORAL 06/04/17 11:00 07/04/17 10:59 9/4/17 11:26 Lansoprazole (Prevacid) 30 mg Q12HR GT 06/04/17 10:00 07/04/17 09:59 06/06/17 11:25 Levetiracetam (Keppra) 1,500 mg BID GT 06/04/17 09:00 07/04/17 08:59 06/06/17 11:24 Metoprolol Tartrate (Lopressor) 25 mg EVERY 12 HOURS GT 06/03/17 21:00 07/03/17 20:59 06/06/17 11:27 Phenytoin (Dilantin) 300 mg BEDTIME ORAL 06/04/17 21:00 07/04/17 20:59 06/05/17 22:00 Polyethylene Glycol (Miralax) 17 gm BEDTIME ORAL 06/05/17 21:00 07/05/17 20:59 06/05/17 22:00 Potassium Chloride 100 ml @ 100 mls/hr Q1H IVPB 06/06/17 11:00 06/06/17 12:59 06/06/17 11:25 Sertraline HCl (Zoloft) 50 mg BEDTIME GT 06/04/17 21:00 07/04/17 20:59 06/05/17 21:59 Sodium Chloride 1,000 ml @ 75 mls/hr [id number] IV 06/03/17 18:30 07/03/17 18:29 06/05/17 23:51 Topiramate (Topamax) 150 mg Q12HR GT 06/04/17 09:00 07/04/17 08:59 06/06/17 11:25 Zinc Sulfate (Zinc Sulfate) 220 mg DAILY ORAL 06/04/17 09:00 07/04/17 08:59 06/06/17 11:26 Ly Cohn NP ([facility]te[facility]) Jun 06, 2017 13:07
[2017-06-06 16:00] VITALS: BP 117/80
--- NOTE | 2017-06-06 19:43 | General Progress Note ---
Assessment/Plan Problem List: (1) Acute toxic metabolic encephalopathy (2) Acute on chronic anemia (3) Hypernatremia ICD Codes: E87.0 - Hyperosmolality and hypernatremia SNOMED: 42311467 (4) VERNA (acute kidney injury) ICD Codes: N17.9 - Acute kidney failure, unspecified SNOMED: 16733362 (5) Tracheostomy dependence ICD Codes: Z93.0 - Tracheostomy status SNOMED: 825363417, 555105579 (6) Seizure ICD Codes: R56.9 - Unspecified convulsions SNOMED: 63141895 (7) HTN (hypertension) ICD Codes: I10 - Essential (primary) hypertension SNOMED: 74274224 (8) CVA (cerebral vascular accident) ICD Codes: I63.9 - Cerebral infarction, unspecified SNOMED: 699226806 (9) Functional quadriplegia ICD Codes: R53.2 - Functional quadriplegia SNOMED: 028762487343528 (10) Ovarian cancer ICD Codes: C56.9 - Malignant neoplasm of unspecified ovary SNOMED: 401217525 (11) Brain metastases ICD Codes: C79.31 - Secondary malignant neoplasm of brain SNOMED: 25503121 (12) PUD (peptic ulcer disease) ICD Codes: K27.9 - Peptic ulcer, site unspecified, unspecified as acute or chronic, without hemorrhage or perforation SNOMED: 71770281 (13) Leukocytosis ICD Codes: D72.829 - Elevated white blood cell count, unspecified SNOMED: 908234466, 834147506 Qualifiers: Qualified Codes: D72.829 - Elevated white blood cell count, unspecified (14) Left ischial tuberosity stage III pressure ulcer (15) Sacrococcygeal unstageable pressure ulcer with extensive full thickness scar tissue (16) Hypokalemia ICD Codes: E87.6 - Hypokalemia SNOMED: 55878748 Status: stable Assessment/Plan GI consulted s/p 1U pRBC transfusion 06/04 Transfuse for hgb<7 PPI BID F/u CT A/P given elevated tumor markers, anemia Possible plan for colonoscopy tomorrow per GI Monitor for signs of bleeding Pulm consulted Cont vent IVFs for hypernatremia Hold home lasix given VERNA s/p levaquin in ED on 06/03 Will hold abx for now given no clear infectious source F/u cultures Cont other home meds including AEDs Pain control, supportive care, bowel regimen Cont tube feeds via PEG Cont wound care for pressure ulcers DVT Prophylaxis: SCD Code Status: Full Hospital Classification Declaration: Based on this initial evaluation, and depending on the patient's clinical course, I anticipate that this patient will require hospitalization for 1-2 days for AMS, anemia, hypernatremia, VERNA and close respiratory/hemodynamic monitoring. Disposition: Once the patient is stable to leave the hospital, I anticipate the patient will likely be discharged to the following environment: home with HH + CG vs SNF I spent 42 minutes on this patient's case, and 22 minutes were dedicated to counseling and/or care coordination. Discussed with patient/family, nursing staff, SW/CM, GI, pulm regarding clinical status, treatment course, and disposition planning. Time of note may not reflect time of encounter. Subjective Date patient seen: Jun 06, 2017 Time patient seen: 12:00 ROS Limited/Unobtainable: Yes Allergies: Coded Allergies: DEXAMETHASONE (Unverified Allergy, Unknown, 07/10/15) Subjective Hgb drop to 8 from 9 No e/o active bleeding GT lavage neg Na and SCr improved Pt cont to be poorly responsive to voice and pain, non-verbal at baseline Per daughter, pt sometimes follows simple commands Unable to obtain ROS given AMS Objective Last 24 Hour Vital Signs Date Time Temp Pulse Resp B/P (MAP) Pulse Ox O2 Delivery O2 Flow Rate FiO2 06/06/17 19:14 82 30 35 06/06/17 19:13 76 30 95 Mechanical Ventilator 35 06/06/17 19:12 78 30 98 Mechanical Ventilator 35 06/06/17 19:11 35 06/06/17 17:12 78 22 35 06/06/17 16:00 98.2 86 20 117/80 98 Mechanical Ventilator 35 06/06/17 16:00 35 06/06/17 16:00 84 06/06/17 15:31 80 30 97 Mechanical Ventilator 35 06/06/17 15:31 35 06/06/17 15:17 77 30 35 06/06/17 15:15 80 30 97 Mechanical Ventilator 35 06/06/17 12:34 80 30 35 06/06/17 12:08 81 24 100 Mechanical Ventilator 35 06/06/17 12:08 35 06/06/17 12:00 75 06/06/17 12:00 35 06/06/17 12:00 98.1 79 16 125/71 100 Mechanical Ventilator 35 06/06/17 11:59 78 27 100 Mechanical Ventilator 35 06/06/17 11:27 82 142/80 06/06/17 11:27 82 142/80 06/06/17 10:52 80 27 35 06/06/17 08:42 82 15 35 06/06/17 08:09 97.9 80 16 142/80 100 Mechanical Ventilator 35 06/06/17 08:00 35 06/06/17 08:00 86 06/06/17 07:26 81 21 100 Mechanical Ventilator 35 06/06/17 07:26 35 06/06/17 07:13 81 21 35 06/06/17 07:13 82 21 100 Mechanical Ventilator 35 06/06/17 05:30 66 21 35 06/06/17 04:00 97.2 61 16 123/76 100 Mechanical Ventilator 35 06/06/17 04:00 35 06/06/17 03:44 60 06/06/17 03:29 56 21 35 06/06/17 01:33 61 16 35 06/06/17 01:13 62 16 100 Mechanical Ventilator 35 06/06/17 00:50 35 06/06/17 00:50 61 16 100 Mechanical Ventilator 35 06/06/17 00:50 59 16 100 Mechanical Ventilator 35 06/06/17 00:40 35 06/06/17 00:40 59 16 100 Mechanical Ventilator 35 06/06/17 00:40 59 16 100 Mechanical Ventilator 35 06/06/17 00:28 35 06/06/17 00:27 59 23 100 Mechanical Ventilator 35 06/06/17 00:24 59 24 35 06/06/17 00:00 62 06/06/17 00:00 35 06/06/17 00:00 97.8 63 23 123/68 100 Mechanical Ventilator 35 06/05/17 21:58 78 116/64 06/05/17 20:31 78 16 35 06/05/17 20:00 35 06/05/17 20:00 98.2 80 16 116/64 100 Mechanical Ventilator 35 06/05/17 19:47 83 Intake and Output 06/06/17 06/07/17 19:00 07:00 Intake Total 2375 ml Balance 2375 ml Intake Free Water 100 ml IV Total 875 ml Tube Feeding 1400 ml # Voids 3 Laboratory Tests 06/06/17 03:45: White Blood Count 10.7, Red Blood Count 2.44L, Hemoglobin 8.0L, Hematocrit 23.0L , Mean Corpuscular Volume 94, Mean Corpuscular Hemoglobin 32.7H, Mean Corpuscular Hemoglobin Concent 34.7, Red Cell Distribution Width 13.4, Platelet Count 138L, Mean Platelet Volume 9.7, Neutrophils (%) (Auto) 61.9, Lymphocytes ( %) (Auto) 23.0, Monocytes (%) (Auto) 6.8, Eosinophils (%) (Auto) 7.8H, Basophils (%) (Auto) 0.5, Sodium Level 141, Potassium Level 3.1L, Chloride Level 110H, Carbon Dioxide Level 15L, Anion Gap 16H, Blood Urea Nitrogen 22, Creatinine 0.7, Estimat Glomerular Filtration Rate , Glucose Level 121H, Calcium Level 8.5L, Magnesium Level 2.0, Total Bilirubin 0.3, Aspartate Amino Transf (AST/SGOT) 29, Alanine Aminotransferase (ALT/SGPT) 35H, Alkaline Phosphatase 196H, Total Protein 7.0, Albumin 2.7L, Globulin 4.3, Albumin/ Globulin Ratio 0.6L Height (Feet): 4 Height (Inches): 10.00 Weight (Pounds): 120 Objective General: unresponsive, non-verbal at baseline Head: normocephalic, without obvious abnormality, atraumatic Eyes: conjunctivae/corneas clear. PERRL, EOM's intact Throat: lips, mucosa, and tongue normal. MMM Neck: supple, symmetrical, trachea midline, and no JVD, +trach Lungs: clear to auscultation bilaterally Heart: regular rate and rhythm, S1, S2 normal, no murmur, click, rub or gallop Abdomen: soft, non-tender, non-distended, bowel sounds normal; +G tube c/d/i Extremities: extremities normal, atraumatic, no cyanosis or edema Pulses: 2+ and symmetric Skin: skin color, texture, turgor normal; no rashes or lesions Neurologic: grossly normal, no focal deficits Niki Rodriguez M.D. Jun 06, 2017 19:43
[2017-06-06] MEDS ORDERED: 1/2 NS 1000ml IV ONE (19:59)
[2017-06-06 20:00] VITALS: BP 145/76
[2017-06-06] MEDS: Phenytoin 100mg cap ORAL SCH (21:27)
[2017-06-06] MEDS: Sertraline 50mg tab GT SCH (21:28)
[2017-06-06] MEDS: Donepezil 5mg Tab GT SCH (21:28)
[2017-06-06] MEDS: Miralax 17gm pkt ORAL SCH (21:29)
[2017-06-06] MEDS: Artificial Tears 1.4% Op Soln BOTH EYES SCH (22:00)
[2017-06-07] VITALS: BP 120/66
[2017-06-07] MEDS: Budesonide HHN 0.25mg/2ml ud HHN SCH ×3 (01:30→22:43)
[2017-06-07] MEDS: DuoNeb 0.5-3(2.5)mg/3ml neb HHN SCH ×4 (01:31→20:36)
[2017-06-07 04:00] VITALS: BP 112/66
[2017-06-07 05:13] LABS: BASOPHILS % (AUTO) 0.5 % (0.0-2.0); EOSINOPHILS % (AUTO) 7.7 % (0.0-3.0); LYMPHOCYTES % (AUTO) 20.9 % (20.0-45.0); MEAN CORPUSCULAR HEMOGLOBIN 33.9 PG (27.0-31.0); MEAN CORPUSCULAR HGB CONC 35.2 G/DL (32.0-36.0); MEAN CORPUSCULAR VOLUME 96 FL (80-99); MEAN PLATELET VOLUME 9.9 FL (6.5-10.1); MONOCYTES % (AUTO) 5.3 % (1.0-10.0); NEUTROPHILS % (AUTO) 65.6 % (45.0-75.0); PLATELET COUNT 148 K/UL (150-450); RED BLOOD COUNT 2.52 M/UL (4.20-5.40); RED CELL DISTRIBUTION WIDTH 13.9 % (11.6-14.8); WHITE BLOOD COUNT 14.5 K/UL (4.8-10.8)
[2017-06-07 05:34] LABS: ANION GAP 15 (5-15); CALCIUM 8.5 mg/dL (8.6-10.2); CARBON DIOXIDE 14 mEQ/L (20-30); CHLORIDE 109 mEQ/L (98-107); CREATININE 0.6 mg/dL (0.5-0.9); HEMOLYSIS 68; POTASSIUM 3.6 mEQ/L (3.4-4.9); SODIUM 138 mEQ/L (135-145)
[2017-06-07 08:00] VITALS: BP 142/68
[2017-06-07 08:58] LABS: ABG BASE EXCESS -6.4; ABG PCO2 26.9 mmHg (35.0-45.0)
[2017-06-07 08:59] LABS: ABG ALLEN TEST POSITIVE
[2017-06-07] MEDS: Artificial Tears 1.4% Op Soln BOTH EYES SCH ×2 (09:10→17:29)
[2017-06-07] MEDS: Docusate 100mg/10ml Liq GT SCH ×2 (09:10→17:30)
[2017-06-07] MEDS: levETIRAcetam 500mg/5ml Liquid GT SCH ×2 (09:11→17:30)
[2017-06-07] MEDS: Topiramate 100mg tab GT SCH ×2 (09:12→21:33)
[2017-06-07] MEDS: Lacosamide 100 MG TABLET ORAL SCH ×2 (09:12→21:34)
[2017-06-07] MEDS: Ascorbic Acid 500mg tab ORAL SCH (09:14)
[2017-06-07] MEDS: Zinc Sulfate 220mg cap ORAL SCH (09:14)
--- NOTE | 2017-06-07 10:05 | Pulmonology Progress Note ---
Assessment/Plan Problems: (1) Tracheostomy dependence (2) Chronic respiratory disease (3) Anemia (4) Elevated CEA Respiratory: monitor respiratory rate, adjust FIO2, CXR Cardiac: continue to monitor HR/BP Renal: F/U I&O, check electrolytes Infectious Disease: check cultures Gastrointestinal: continue feedings/current rate Endocrine: monitor blood sugar Neurologic: PRN Morphine Affect: PRN ativan Notes Reviewed: saas architect Discussed with: nurses, consultants, manager case management - tumor markers [place], ? oncology evaluation Subjective ROS Limited/Unobtainable: No Constitutional: Reports: no symptoms HEENT: Repors: no symptoms Allergies: Coded Allergies: DEXAMETHASONE (Unverified Allergy, Unknown, 07/10/15) Objective Last 24 Hour Vital Signs Date Time Temp Pulse Resp B/P (MAP) Pulse Ox O2 Delivery O2 Flow Rate FiO2 06/07/17 09:14 60 142/68 06/07/17 09:00 60 16 35 06/07/17 08:00 97.4 53 16 142/68 100 Mechanical Ventilator 35 06/07/17 08:00 35 06/07/17 07:36 60 16 100 Mechanical Ventilator 35 06/07/17 07:36 35 06/07/17 07:31 55 06/07/17 07:30 53 16 35 06/07/17 07:30 53 16 100 Mechanical Ventilator 06/07/17 05:30 51 21 35 06/07/17 04:31 57 06/07/17 04:00 35 06/07/17 04:00 98.0 58 20 112/66 100 Mechanical Ventilator 35 06/07/17 03:30 58 21 35 06/07/17 01:38 68 24 99 Mechanical Ventilator 35 06/07/17 01:38 35 06/07/17 01:37 60 20 98 Mechanical Ventilator 35 06/07/17 01:30 61 21 35 06/07/17 00:00 98.4 62 20 120/66 100 Mechanical Ventilator 35 06/06/17 23:00 68 20 100 Mechanical Ventilator 35 06/06/17 23:00 60 21 100 Mechanical Ventilator 35 06/06/17 23:00 35 06/06/17 22:56 76 26 35 06/06/17 21:30 74 27 35 06/06/17 21:28 79 145/76 06/06/17 20:03 80 06/06/17 20:00 35 06/06/17 20:00 98.0 79 20 145/76 100 Mechanical Ventilator 35 06/06/17 19:14 82 30 35 06/06/17 19:13 76 30 95 Mechanical Ventilator 35 06/06/17 19:12 78 30 98 Mechanical Ventilator 35 06/06/17 19:11 35 06/06/17 17:12 78 22 35 06/06/17 16:00 98.2 86 20 117/80 98 Mechanical Ventilator 35 06/06/17 16:00 35 06/06/17 16:00 84 06/06/17 15:31 80 30 97 Mechanical Ventilator 35 06/06/17 15:31 35 06/06/17 15:17 77 30 35 06/06/17 15:15 80 30 97 Mechanical Ventilator 35 06/06/17 12:34 80 30 35 06/06/17 12:08 81 24 100 Mechanical Ventilator 35 06/06/17 12:08 35 06/06/17 12:00 75 06/06/17 12:00 35 06/06/17 12:00 98.1 79 16 125/71 100 Mechanical Ventilator 35 06/06/17 11:59 78 27 100 Mechanical Ventilator 35 06/06/17 11:27 82 142/80 06/06/17 11:27 82 142/80 06/06/17 10:52 80 27 35 Intake and Output 06/07/17 06/08/17 19:00 07:00 # Bowel Movements 1 HEENT: normocephalic, atraumatic Respiratory/Chest: chest wall non-tender, normal breath sounds Breasts: no masses Cardiovascular: normal rate Extremities: no cyanosis, no clubbing Skin: no rash Neurologic/Psychiatric: chief of anesthesiology II-XII grossly normal Lymphatic: no neck adenopathy Laboratory Tests 06/07/17 04:00: White Blood Count 14.5H, Red Blood Count 2.52L, Hemoglobin 8.5L, Hematocrit 24.3L, Mean Corpuscular Volume 96, Mean Corpuscular Hemoglobin 33.9H, Mean Corpuscular Hemoglobin Concent 35.2, Red Cell Distribution Width 13.9, Platelet Count 148L, Mean Platelet Volume 9.9, Neutrophils (%) (Auto) 65.6, Lymphocytes ( %) (Auto) 20.9, Monocytes (%) (Auto) 5.3, Eosinophils (%) (Auto) 7.7H, Basophils (%) (Auto) 0.5, Arterial Blood pH 7.423, Arterial Blood Partial Pressure CO2 26.9L, Arterial Blood Partial Pressure O2 136.9H, Arterial Blood HCO3 17.2L, Arterial Blood Oxygen Saturation 98.2H, Arterial Blood Base Excess - 6.4, Eder Test Positive, Sodium Level 138, Potassium Level 3.6, Chloride Level 109H, Carbon Dioxide Level 14L, Anion Gap 15, Blood Urea Nitrogen 12, Creatinine 0.6, Estimat Glomerular Filtration Rate , Glucose Level 98, Calcium Level 8.5L 06/07/17 07:20: Stool Occult Blood Negative Current Medications Medications (Trade) Dose Ordered Sig/Ludivina Route PRN Reason Start Time Stop Time Status Last Admin Dose Admin Acetaminophen (Tylenol) 650 mg Q4H PRN ORAL Mild Pain (Pain Scale 1-3) 06/03/17 17:30 07/03/17 17:29 Albuterol/ Ipratropium (DuoNeb 0.5-3(2.5)mg/3ml) 3 ml Q6HRT N 06/04/17 13:00 06/09/17 12:59 06/07/17 07:33 Amlodipine Besylate (Norvasc) 5 mg DAILY GT 06/04/17 09:00 07/04/17 08:59 06/07/17 09:14 Artificial Tears (Akwa-Tears) 1 drop BID BOTH EYES 06/06/17 22:00 07/06/17 21:59 06/07/17 09:10 Ascorbic Acid (Vitamin C) 500 mg DAILY ORAL 06/04/17 09:00 07/04/17 08:59 06/07/17 09:14 Budesonide (Pulmicort) 0.25 mg Q12HRT HHN 06/04/17 10:00 07/04/17 09:59 06/07/17 01:30 Clonidine HCl (Catapres) 0.1 mg Q6H PRN GT For SBP>180 06/04/17 09:00 07/04/17 08:59 Dextrose (Dextrose 50%) STAT PRN IV Hypoglycemia 06/03/17 17:30 07/03/17 17:29 Docusate Sodium (Colace) 100 mg TWICE A DAY GT 06/04/17 09:30 07/04/17 09:29 06/07/17 09:10 Donepezil HCl (Aricept) 5 mg BEDTIME GT 06/04/17 21:00 07/04/17 20:59 06/06/17 21:28 Folic Acid (Folate) 1 mg DAILY GT 06/04/17 09:00 07/04/17 08:59 06/07/17 09:12 Lacosamide (Vimpat) 200 mg Q12HR ORAL 06/04/17 11:00 07/04/17 10:59 06/07/17 09:12 Lansoprazole (Prevacid) 30 mg Q12HR GT 06/04/17 10:00 07/04/17 09:59 06/07/17 09:12 Levetiracetam (Keppra) 1,500 mg BID GT 06/04/17 09:00 07/04/17 08:59 06/07/17 09:11 Metoprolol Tartrate (Lopressor) 25 mg EVERY 12 HOURS GT 06/03/17 21:00 07/03/17 20:59 06/06/17 21:28 Phenytoin (Dilantin) 300 mg BEDTIME ORAL 06/04/17 21:00 07/04/17 20:59 06/06/17 21:27 Polyethylene Glycol (Miralax) 17 gm BEDTIME ORAL 06/05/17 21:00 07/05/17 20:59 06/06/17 21:29 Sertraline HCl (Zoloft) 50 mg BEDTIME GT 06/04/17 21:00 07/04/17 20:59 06/06/17 21:28 Sodium Chloride 1,000 ml @ 75 mls/hr [id number] IV 06/03/17 18:30 07/03/17 18:29 06/07/17 02:01 Topiramate (Topamax) 150 mg Q12HR GT 06/04/17 09:00 07/04/17 08:59 06/07/17 09:12 Zinc Sulfate (Zinc Sulfate) 220 mg DAILY ORAL 06/04/17 09:00 07/04/17 08:59 06/07/17 09:14 BENJY CARMEN Jun 07, 2017 10:05
[2017-06-07] MEDS: Metoprolol 25mg tab GT SCH (10:36)
[2017-06-07] MEDS ORDERED: Propofol 200mg/20ml IV ONE (11:30)
[2017-06-07] MEDS ORDERED: LR 1000ml ONE (11:30)
--- NOTE | 2017-06-07 11:34 | Pre-Procedure Note/Attestation ---
Pre-Procedure Note/Attestation Complete Prior to Procedure Planned Procedure: not applicable Procedure Narrative: colonoscopy Indications for Procedure Pre-Operative Diagnosis: anemia, elevated CEA Attestation I attest that I discussed the nature of the procedure; its benefits; risks and complications; and alternatives (and the risks and benefits of such alternatives ), prior to the procedure, with the patient (or the patient's legal site safety representative). I attest that, if there was a reasonable possibility of needing a blood transfusion, the patient (or the patient's legal site safety representative) was given the [facility] standardized written summary, pursuant to the [place] Blood Safety Act ([place] Health and Safety Code # 1645, as amended). I attest that I re-evaluated the patient just prior to the surgery and that there has been no change in the patient's H&P, except as documented below: EDIE LIRIANO Jun 07, 2017 11:34
--- NOTE | 2017-06-07 11:54 | Endoscopy Procedure Note ---
Endoscopy Procedure Note Indication for Procedure: GI bleed Procedures Performed: colonoscopy Operative Findings/Diagnosis: one colon polyp Specimen: yes Pt Tolerated Procedure Well: Yes Estimated Blood Loss: none Anesthesiologist: clarence Anesthesia: MAC Implant(s) used?: No 50 yrs or older w/o bx or poly: Not Applicable 10yrs. F/U not recommended: Not Applicable EDIE LIRIANO Jun 07, 2017 11:54
--- NOTE | 2017-06-07 11:55 | Anethesia Preoperative Eval ---
Anesthesia Pre-op PMH/ROS General Date of Evaluation: Jun 07, 2017 Time of Evaluation: 11:21 Anesthesiologist: Lucille ASA Score: ASA 4 - Emergency Mallampati Score Class I : Soft palate, uvula, fauces, pillars visible Class II: Soft palate, uvula, fauces visible Class III: Soft palate, base of uvula visible Class IV: Only hard plate visible Mallampati Classification: Class II Surgeon: Mallory Diagnosis: Anemia Anesthesia History: none Family History: no anesthesia problems Allergies: Coded Allergies: DEXAMETHASONE (Unverified Allergy, Unknown, 07/10/15) Medications: see eMAR Past Medical History Cardiovascular: Reports: HTN, arrhythmia - Afib Pulmonary: Reports: other - Trach, Vent Failure Gastrointestinal/Genitourinary: Reports: GERD, CRI, other - GI Bleed Neurologic/Psychiatric: Reports: dementia, CVA, other - Seizures Hematology/Immune: Reports: anemia PSxH Narrative: IVC filter, Trach Anesthesia Pre-op Phys. Exam Physician Exam Last Vital Signs Date Time Temp Pulse Resp B/P (MAP) Pulse Ox O2 Delivery O2 Flow Rate FiO2 06/07/17 10:50 57 16 100 Mechanical Ventilator 35 06/07/17 10:36 142/68 06/07/17 08:00 97.4 06/03/17 19:56 60.0 Constitutional: other Neurologic: other Cardiovascular: other Respiratory: other Gastrointestinal: other Airway Exam Mallampati Score: Class II MO: limited ROM: limited Teeth: missing - Trach Anesthesia Pre-op A/P Labs Hematology Test 06/07/17 04:00 White Blood Count 14.5 K/UL (4.8-10.8) H Red Blood Count 2.52 M/UL (4.20-5.40) L Hemoglobin 8.5 G/DL (12.0-16.0) L Hematocrit 24.3 % (37.0-47.0) L Mean Corpuscular Volume 96 FL (80-99) Mean Corpuscular Hemoglobin 33.9 PG (27.0-31.0) H Mean Corpuscular Hemoglobin Concent 35.2 G/DL (32.0-36.0) Red Cell Distribution Width 13.9 % (11.6-14.8) Platelet Count 148 K/UL (150-450) L Mean Platelet Volume 9.9 FL (6.5-10.1) Neutrophils (%) (Auto) 65.6 % (45.0-75.0) Lymphocytes (%) (Auto) 20.9 % (20.0-45.0) Monocytes (%) (Auto) 5.3 % (1.0-10.0) Eosinophils (%) (Auto) 7.7 % (0.0-3.0) H Basophils (%) (Auto) 0.5 % (0.0-2.0) Chemistry Test 06/07/17 04:00 Sodium Level 138 mEQ/L (135-145) Potassium Level 3.6 mEQ/L (3.4-4.9) Chloride Level 109 mEQ/L (98-107) H Carbon Dioxide Level 14 mEQ/L (20-30) L Anion Gap 15 (5-15) Blood Urea Nitrogen 12 mg/dL (7-23) Creatinine 0.6 mg/dL (0.5-0.9) Estimat Glomerular Filtration Rate mL/min (>60) Glucose Level 98 mg/dL (74-106) Calcium Level 8.5 mg/dL (8.6-10.2) L Risk Assessment & Plan Assessment: ASA 4E Plan: GA Status Change Before Surgery: Jadon Santiago MD Jun 07, 2017 11:55
[2017-06-07 12:00] VITALS: BP 127/75
--- NOTE | 2017-06-07 12:05 | Immediate Post-Op Evaluation ---
Immediate Post-Op Evalulation Immediate Post-Op Evalulation Procedure: Colonoscopy Date of Evaluation: Jun 07, 2017 Time of Evaluation: 12:17 IV Fluids: 50 NS Blood Products: 0 Estimated Blood Loss: 1 Urinary Output: 0 Blood Pressure Systolic: 132 Blood Pressure Diastolic: 81 Pulse Rate: 82 Respiratory Rate: 20 - Mech Vent O2 Sat by Pulse Oximetry: 100 Temperature (Fahrenheit): 98.4 Pain Score (1-10): 0 Nausea: No Vomiting: No Complications 0 Patient Status: no response, ventilated, none Hydration Status: adequate Jadon Adkins MD Jun 07, 2017 12:05
--- NOTE | 2017-06-07 12:08 | 48 Hour Post Anesthesia Eval ---
Post Anesthesia Evaluation Procedure: Colonoscopy Date of Evaluation: Jun 07, 2017 Time of Evaluation: 14:32 Blood Pressure Systolic: 143 0: 81 Pulse Rate: 84 Respiratory Rate: 20 - Mech Vent Temperature (Fahrenheit): 98.4 O2 Sat by Pulse Oximetry: 100 Nausea: No Vomiting: No Pain Intensity: 0 Cardiopulmonary Status: Stable Mental Status/LOC: other - On Vent Follow-up Care/Observations: 0 Post-Anesthesia Complications: 0 Follow-up care needed: N/A Jadon Adkins MD Jun 07, 2017 12:08
--- NOTE | 2017-06-07 12:33 | Diagnostic Imaging Report ---
Indication: Dyspnea Comparison: 06/03/17 A single view chest radiograph was obtained. Findings: There is a hazy right basilar opacification, prominence of the heart and tracheostomy again noted. IVC filter noted. Impression: Probable right pleural effusion.
[2017-06-07 16:00] VITALS: BP 136/73
--- NOTE | 2017-06-07 16:36 | General Progress Note ---
Assessment/Plan Problem List: (1) Acute toxic metabolic encephalopathy (2) Acute on chronic anemia (3) Hypernatremia ICD Codes: E87.0 - Hyperosmolality and hypernatremia SNOMED: 25441676 (4) VERNA (acute kidney injury) ICD Codes: N17.9 - Acute kidney failure, unspecified SNOMED: 25205748 (5) Tracheostomy dependence ICD Codes: Z93.0 - Tracheostomy status SNOMED: 278171116, 730173283 (6) Seizure ICD Codes: R56.9 - Unspecified convulsions SNOMED: 01077042 (7) HTN (hypertension) ICD Codes: I10 - Essential (primary) hypertension SNOMED: 74571977 (8) CVA (cerebral vascular accident) ICD Codes: I63.9 - Cerebral infarction, unspecified SNOMED: 896562413 (9) Functional quadriplegia ICD Codes: R53.2 - Functional quadriplegia SNOMED: 623121393708833 (10) Ovarian cancer ICD Codes: C56.9 - Malignant neoplasm of unspecified ovary SNOMED: 544222882 (11) Brain metastases ICD Codes: C79.31 - Secondary malignant neoplasm of brain SNOMED: 98746368 (12) PUD (peptic ulcer disease) ICD Codes: K27.9 - Peptic ulcer, site unspecified, unspecified as acute or chronic, without hemorrhage or perforation SNOMED: 09521940 (13) Leukocytosis ICD Codes: D72.829 - Elevated white blood cell count, unspecified SNOMED: 633025344, 818052266 Qualifiers: Qualified Codes: D72.829 - Elevated white blood cell count, unspecified (14) Left ischial tuberosity stage III pressure ulcer (15) Sacrococcygeal unstageable pressure ulcer with extensive full thickness scar tissue (16) Hypokalemia ICD Codes: E87.6 - Hypokalemia SNOMED: 07435956 Status: stable Assessment/Plan Given persistent AMS, will get CT head GI consulted s/p 1U pRBC transfusion 06/04 Transfuse for hgb<7 PPI BID F/u CT A/P given elevated tumor markers, anemia s/p colonoscopy on 06/07/17 which showed colon polyp s/p removal Monitor for signs of bleeding Pulm consulted Cont vent IVFs for hypernatremia Hold home lasix given VERNA s/p levaquin in ED on 06/03 Will hold abx for now given no clear infectious source ID consulted given concern for osteo on CT F/u cultures Cont other home meds including AEDs Pain control, supportive care, bowel regimen Cont tube feeds via PEG Cont wound care for pressure ulcers DVT Prophylaxis: SCD Code Status: Full Hospital Classification Declaration: Based on this initial evaluation, and depending on the patient's clinical course, I anticipate that this patient will require hospitalization for 1-2 days for AMS, anemia, hypernatremia, VERNA and close respiratory/hemodynamic monitoring. Disposition: Once the patient is stable to leave the hospital, I anticipate the patient will likely be discharged to the following environment: home with HH + CG vs SNF I spent 42 minutes on this patient's case, and 22 minutes were dedicated to counseling and/or care coordination. Discussed with patient/family, nursing staff, SW/CM, GI, pulm regarding clinical status, treatment course, and disposition planning. Time of note may not reflect time of encounter. Subjective Date patient seen: Jun 07, 2017 Time patient seen: 16:36 ROS Limited/Unobtainable: Yes Allergies: Coded Allergies: No Known Allergies (Unverified , 06/08/17) Subjective s/p colonoscopy today which showed colon polyp s/p removal. No e/o bleeding Na and SCr improved Pt cont to be poorly responsive to voice and pain, non-verbal at baseline Per daughter, pt sometimes awake, alert, able to track. Does not follow commands Unable to obtain ROS given AMS Objective Last 24 Hour Vital Signs Date Time Temp Pulse Resp B/P (MAP) Pulse Ox O2 Delivery O2 Flow Rate FiO2 06/07/17 16:00 35 06/07/17 13:11 68 21 100 Mechanical Ventilator 35 06/07/17 13:11 35 06/07/17 13:02 64 21 35 06/07/17 13:02 84 21 100 Mechanical Ventilator 35 06/07/17 12:08 84 20 100 06/07/17 12:05 82 20 100 06/07/17 12:00 97.7 86 16 127/75 100 Mechanical Ventilator 35 06/07/17 12:00 35 06/07/17 11:20 77 06/07/17 10:50 57 16 100 Mechanical Ventilator 35 06/07/17 10:50 35 06/07/17 10:40 57 20 100 Mechanical Ventilator 35 06/07/17 10:40 57 20 35 06/07/17 10:36 55 142/68 06/07/17 09:14 60 142/68 06/07/17 09:00 60 16 35 06/07/17 08:00 97.4 53 16 142/68 100 Mechanical Ventilator 35 06/07/17 08:00 35 06/07/17 07:36 60 16 100 Mechanical Ventilator 35 06/07/17 07:36 35 06/07/17 07:31 55 06/07/17 07:30 53 16 35 06/07/17 07:30 53 16 100 Mechanical Ventilator 35 06/07/17 05:30 51 21 35 06/07/17 04:31 57 06/07/17 04:00 35 06/07/17 04:00 98.0 58 20 112/66 100 Mechanical Ventilator 35 06/07/17 03:30 58 21 35 06/07/17 01:38 68 24 99 Mechanical Ventilator 35 06/07/17 01:38 35 06/07/17 01:37 60 20 98 Mechanical Ventilator 35 06/07/17 01:30 61 21 35 06/07/17 00:00 98.4 62 20 120/66 100 Mechanical Ventilator 35 06/06/17 23:00 68 20 100 Mechanical Ventilator 35 06/06/17 23:00 60 21 100 Mechanical Ventilator 35 06/06/17 23:00 35 06/06/17 22:56 76 26 35 06/06/17 21:30 74 27 35 06/06/17 21:28 79 145/76 06/06/17 20:03 80 06/06/17 20:00 35 06/06/17 20:00 98.0 79 20 145/76 100 Mechanical Ventilator 35 06/06/17 19:14 82 30 35 06/06/17 19:13 76 30 95 Mechanical Ventilator 35 06/06/17 19:12 78 30 98 Mechanical Ventilator 35 06/06/17 19:11 35 06/06/17 17:12 78 22 35 Intake and Output 06/07/17 06/08/17 19:00 07:00 Intake Total 600 ml Balance 600 ml IV Total 600 ml # Bowel Movements 3 Laboratory Tests 06/07/17 04:00: White Blood Count 14.5H, Red Blood Count 2.52L, Hemoglobin 8.5L, Hematocrit 24.3L, Mean Corpuscular Volume 96, Mean Corpuscular Hemoglobin 33.9H, Mean Corpuscular Hemoglobin Concent 35.2, Red Cell Distribution Width 13.9, Platelet Count 148L, Mean Platelet Volume 9.9, Neutrophils (%) (Auto) 65.6, Lymphocytes ( %) (Auto) 20.9, Monocytes (%) (Auto) 5.3, Eosinophils (%) (Auto) 7.7H, Basophils (%) (Auto) 0.5, Arterial Blood pH 7.423, Arterial Blood Partial Pressure CO2 26.9L, Arterial Blood Partial Pressure O2 136.9H, Arterial Blood HCO3 17.2L, Arterial Blood Oxygen Saturation 98.2H, Arterial Blood Base Excess - 6.4, Eder Test Positive, Sodium Level 138, Potassium Level 3.6, Chloride Level 109H, Carbon Dioxide Level 14L, Anion Gap 15, Blood Urea Nitrogen 12, Creatinine 0.6, Estimat Glomerular Filtration Rate , Glucose Level 98, Calcium Level 8.5L 06/07/17 07:20: Stool Occult Blood Negative Height (Feet): 4 Height (Inches): 10.00 Weight (Pounds): 120 Objective General: unresponsive, non-verbal at baseline Head: normocephalic, without obvious abnormality, atraumatic Eyes: conjunctivae/corneas clear. PERRL, EOM's intact Throat: lips, mucosa, and tongue normal. MMM Neck: supple, symmetrical, trachea midline, and no JVD, +trach Lungs: clear to auscultation bilaterally Heart: regular rate and rhythm, S1, S2 normal, no murmur, click, rub or gallop Abdomen: soft, non-tender, non-distended, bowel sounds normal; +G tube c/d/i Extremities: extremities normal, atraumatic, no cyanosis or edema Pulses: 2+ and symmetric Skin: skin color, texture, turgor normal; no rashes or lesions Neurologic: grossly normal, no focal deficits Niki Rodriguez M.D. Jun 07, 2017 16:36
--- NOTE | 2017-06-07 16:51 | Infectious Diseases Prog Note ---
Assessment/Plan Assessment/Plan Full consult dictated: A) 1) ? sacral/coccyx osteo on Ct abdomen and pelvis, likely chronic if osteo 2) sacral wounds do not look acutely infected and are more superficial, hx of deeper wounds per d/w daughter 3) leukocytosis of unclear etiology, ct with atx, blood cultures negative, ua 0-2 wbc only, dehydration, bilateral conjunctivitis, atx on CT 4) trach, vent, cva, weakness, pud, dysphagia, g-tube, anemia, hx gib, ovarian ca with mets, luke, sbo, brain mets/cranial resection, hx RT/chemo 5) allergies - dexamethasone 6) mar noted, notes and records noted, sh-negative, fh-nc 7) d/w RN P) 1) watch wbc, ivf hydration, systemic abx if indicated, cipro eye drops for conjunctivitis 2) Favor local wound care and observation for now with regards to ? chronic osteo and superficial wounds. I had discussion with Dr. Pirnce and daughter and I think risks outweigh benefits for giving 6 weeks iv abx. 3) continue treatment per Dr. Prince and consultants 4) wound care per protocol 5) orders entered and noted 6) thank you Subjective Allergies: Coded Allergies: DEXAMETHASONE (Unverified Allergy, Unknown, 07/10/15) Objective Vital Signs Last 24 Hour Vital Signs Date Time Temp Pulse Resp B/P (MAP) Pulse Ox O2 Delivery O2 Flow Rate FiO2 06/07/17 13:11 68 21 100 Mechanical Ventilator 35 06/07/17 13:11 35 06/07/17 13:02 64 21 35 06/07/17 13:02 84 21 100 Mechanical Ventilator 35 06/07/17 12:08 84 20 100 06/07/17 12:05 82 20 100 06/07/17 12:00 97.7 86 16 127/75 100 Mechanical Ventilator 35 06/07/17 12:00 35 06/07/17 11:20 77 06/07/17 10:50 57 16 100 Mechanical Ventilator 35 06/07/17 10:50 35 06/07/17 10:40 57 20 100 Mechanical Ventilator 35 06/07/17 10:40 57 20 35 06/07/17 10:36 55 142/68 06/07/17 09:14 60 142/68 06/07/17 09:00 60 16 35 06/07/17 08:00 97.4 53 16 142/68 100 Mechanical Ventilator 35 06/07/17 08:00 35 06/07/17 07:36 60 16 100 Mechanical Ventilator 35 06/07/17 07:36 35 06/07/17 07:31 55 06/07/17 07:30 53 16 35 06/07/17 07:30 53 16 100 Mechanical Ventilator 35 06/07/17 05:30 51 21 35 06/07/17 04:31 57 06/07/17 04:00 35 06/07/17 04:00 98.0 58 20 112/66 100 Mechanical Ventilator 35 06/07/17 03:30 58 21 35 06/07/17 01:38 68 24 99 Mechanical Ventilator 35 06/07/17 01:38 35 06/07/17 01:37 60 20 98 Mechanical Ventilator 35 06/07/17 01:30 61 21 35 06/07/17 00:00 98.4 62 20 120/66 100 Mechanical Ventilator 35 06/06/17 23:00 68 20 100 Mechanical Ventilator 35 06/06/17 23:00 60 21 100 Mechanical Ventilator 35 06/06/17 23:00 35 06/06/17 22:56 76 26 35 06/06/17 21:30 74 27 35 06/06/17 21:28 79 145/76 06/06/17 20:03 80 06/06/17 20:00 35 06/06/17 20:00 98.0 79 20 145/76 100 Mechanical Ventilator 35 06/06/17 19:14 82 30 35 06/06/17 19:13 76 30 95 Mechanical Ventilator 35 06/06/17 19:12 78 30 98 Mechanical Ventilator 35 06/06/17 19:11 35 06/06/17 17:12 78 22 35 Height (Feet): 4 Height (Inches): 10.00 Weight (Pounds): 120 Laboratory Tests Test 06/07/17 04:00 06/07/17 07:20 White Blood Count 14.5 K/UL (4.8-10.8) H Red Blood Count 2.52 M/UL (4.20-5.40) L Hemoglobin 8.5 G/DL (12.0-16.0) L Hematocrit 24.3 % (37.0-47.0) L Mean Corpuscular Volume 96 FL (80-99) Mean Corpuscular Hemoglobin 33.9 PG (27.0-31.0) H Mean Corpuscular Hemoglobin Concent 35.2 G/DL (32.0-36.0) Red Cell Distribution Width 13.9 % (11.6-14.8) Platelet Count 148 K/UL (150-450) L Mean Platelet Volume 9.9 FL (6.5-10.1) Neutrophils (%) (Auto) 65.6 % (45.0-75.0) Lymphocytes (%) (Auto) 20.9 % (20.0-45.0) Monocytes (%) (Auto) 5.3 % (1.0-10.0) Eosinophils (%) (Auto) 7.7 % (0.0-3.0) H Basophils (%) (Auto) 0.5 % (0.0-2.0) Arterial Blood pH 7.423 (7.350-7.450) Arterial Blood Partial Pressure CO2 26.9 mmHg (35.0-45.0) L Arterial Blood Partial Pressure O2 136.9 mmHg (75.0-100.0) H Arterial Blood HCO3 17.2 mmol/L (22.0-26.0) L Arterial Blood Oxygen Saturation 98.2 % (92.0-98.0) H Arterial Blood Base Excess -6.4 Eder Test Positive Sodium Level 138 mEQ/L (135-145) Potassium Level 3.6 mEQ/L (3.4-4.9) Chloride Level 109 mEQ/L (98-107) H Carbon Dioxide Level 14 mEQ/L (20-30) L Anion Gap 15 (5-15) Blood Urea Nitrogen 12 mg/dL (7-23) Creatinine 0.6 mg/dL (0.5-0.9) Estimat Glomerular Filtration Rate mL/min (>60) Glucose Level 98 mg/dL (74-106) Calcium Level 8.5 mg/dL (8.6-10.2) L Stool Occult Blood Negative (NEGATIVE) Current Medications Medications (Trade) Dose Ordered Sig/Ludivina Route PRN Reason Start Time Stop Time Status Last Admin Dose Admin Acetaminophen (Tylenol) 650 mg Q4H PRN ORAL Mild Pain (Pain Scale 1-3) 06/03/17 17:30 07/03/17 17:29 Albuterol/ Ipratropium (DuoNeb 0.5-3(2.5)mg/3ml) 3 ml Q6HRT N 06/04/17 13:00 06/09/17 12:59 06/07/17 13:02 Amlodipine Besylate (Norvasc) 5 mg DAILY GT 06/04/17 09:00 07/04/17 08:59 06/07/17 09:14 Artificial Tears (Akwa-Tears) 1 drop BID BOTH EYES 06/06/17 22:00 07/06/17 21:59 06/07/17 09:10 Ascorbic Acid (Vitamin C) 500 mg DAILY ORAL 06/04/17 09:00 07/04/17 08:59 06/07/17 09:14 Budesonide (Pulmicort) 0.25 mg Q12HRT [facility] 06/04/17 10:00 07/04/17 09:59 06/07/17 10:39 Ciprofloxacin (Ciloxan Opth Soln) 1 drop Q6HR BOTH EYES 06/07/17 17:00 06/14/17 16:59 Clonidine HCl (Catapres) 0.1 mg Q6H PRN GT For SBP>180 06/04/17 09:00 07/04/17 08:59 Dextrose (Dextrose 50%) STAT PRN IV Hypoglycemia 06/03/17 17:30 07/03/17 17:29 Docusate Sodium (Colace) 100 mg TWICE A DAY GT 06/04/17 09:30 07/04/17 09:29 06/07/17 09:10 Donepezil HCl (Aricept) 5 mg BEDTIME GT 06/04/17 21:00 07/04/17 20:59 06/06/17 21:28 Folic Acid (Folate) 1 mg DAILY GT 06/04/17 09:00 07/04/17 08:59 06/07/17 09:12 Lacosamide (Vimpat) 200 mg Q12HR ORAL 06/04/17 11:00 07/04/17 10:59 06/07/17 09:12 Lansoprazole (Prevacid) 30 mg Q12HR GT 06/04/17 10:00 07/04/17 09:59 06/07/17 09:12 Levetiracetam (Keppra) 1,500 mg BID GT 06/04/17 09:00 07/04/17 08:59 06/07/17 09:11 Phenytoin (Dilantin) 300 mg BEDTIME ORAL 06/04/17 21:00 07/04/17 20:59 06/06/17 21:27 Polyethylene Glycol (Miralax) 17 gm BEDTIME ORAL 06/05/17 21:00 07/05/17 20:59 06/06/17 21:29 Sertraline HCl (Zoloft) 50 mg BEDTIME GT 06/04/17 21:00 07/04/17 20:59 06/06/17 21:28 Sodium Chloride 1,000 ml @ 75 mls/hr [id number] IV 06/03/17 18:30 07/03/17 18:29 06/07/17 15:55 Topiramate (Topamax) 150 mg Q12HR GT 06/04/17 09:00 07/04/17 08:59 06/07/17 09:12 Zinc Sulfate (Zinc Sulfate) 220 mg DAILY ORAL 06/04/17 09:00 07/04/17 08:59 06/07/17 09:14 BALWINDER CASTRO Jun 07, 2017 16:51
[2017-06-07] MEDS: Ciprofloxacin Opth Soln BOTH EYES SCH ×2 (16:59→23:31)
[2017-06-07 20:14] VITALS: BP 135/77
[2017-06-07] MEDS: Miralax 17gm pkt ORAL SCH (21:00)
--- NOTE | 2017-06-07 21:30 | Procedure Note ---
DATE OF PROCEDURE: 06/07/2017 PROCEDURE: Colonoscopy with biopsy. ANESTHESIOLOGIST: Jadon Adkins M.D. INSTRUMENT: Olympus adult flexible colonoscope. INDICATION: Gastrointestinal bleeding and elevated CEA. REASON FOR PROCEDURE: The procedure, risks, benefits, and possible consequences, including hemorrhage, aspiration, perforation and infection, and alternative treatments, were explained to the patient/legal guardian by Dr. Yinka Tejada and the patient/legal guardian understood and accepted these risks. DESCRIPTION OF PROCEDURE: After informed consent was obtained and the patient was adequately sedated, first rectal exam was performed, which shows positive for internal hemorrhoids. Then, the scope was advanced from the rectum into the cecum documented by appendiceal orifice, ileocecal valve, and right upper quadrant palpation. Quality of prep was very good. The patient had evidence of one polyp in the proximal ascending colon, it measured roughly about 4 mm, removed with cold biopsy forceps technique. The rest of the colonoscopy examination grossly within normal limits. No obvious mass or polyp was seen. Retroflexion of rectum showed evidence of internal hemorrhoids. SUMMARY OF FINDINGS: 1. One colonic polyp removed, see above for details. 2. Internal hemorrhoids. RECOMMENDATIONS: 1. Follow up biopsy results and treat accordingly. 2. We will resume tube feeding. 3. We will consider doing endoscopy if the patient has significant drop in hemoglobin and hematocrit and persistent stool OB positive. Yinka Tejada M.D. DR: Marleen JOB#: [id number] CC:
[2017-06-07] MEDS: Donepezil 5mg Tab GT SCH (21:34)
[2017-06-07] MEDS: Sertraline 50mg tab GT SCH (21:35)
[2017-06-07] MEDS: Phenytoin 100mg cap ORAL SCH (21:35)
[2017-06-08] VITALS (7 sets, daily range): BP systolic 118–148; BP diastolic 65–88
[2017-06-08] MEDS: DuoNeb 0.5-3(2.5)mg/3ml neb HHN SCH ×4 (01:23→19:48)
[2017-06-08 04:57] LABS: BASOPHILS % (AUTO) 0.5 % (0.0-2.0); EOSINOPHILS % (AUTO) 8.9 % (0.0-3.0); LYMPHOCYTES % (AUTO) 19.2 % (20.0-45.0); MEAN CORPUSCULAR HEMOGLOBIN 32.6 PG (27.0-31.0); MEAN CORPUSCULAR HGB CONC 33.8 G/DL (32.0-36.0); MEAN CORPUSCULAR VOLUME 96 FL (80-99); MEAN PLATELET VOLUME 9.4 FL (6.5-10.1); MONOCYTES % (AUTO) 6.1 % (1.0-10.0); NEUTROPHILS % (AUTO) 65.4 % (45.0-75.0); PLATELET COUNT 136 K/UL (150-450); RED BLOOD COUNT 2.48 M/UL (4.20-5.40); RED CELL DISTRIBUTION WIDTH 13.6 % (11.6-14.8); WHITE BLOOD COUNT 12.5 K/UL (4.8-10.8)
--- NOTE | 2017-06-08 05:00 | Consultation ---
DATE OF CONSULTATION: ADDENDUM The patient also had an elevated sedimentation rate at 150, however, the patient has metastatic cancer and I believe her tumor markers are elevated and thus it is unclear of the significance as this is a nonspecific test. This was also discussed with Dr. Prince. Vero Nogueira M.D. DR: JUSTIN JOB#: [id number] CC:
[2017-06-08 05:01] LABS: INR 1.1 (0.9-1.1)
[2017-06-08 05:59] LABS: ALANINE AMINOTRANSFERASE 34 U/L (3-33); ALBUMIN/GLOBULIN RATIO 0.6 (1.0-2.7); ANION GAP 13 (5-15); ASPARTATE AMINO TRANSFERASE 29 U/L (5-40); CALCIUM 8.5 mg/dL (8.6-10.2); CARBON DIOXIDE 17 mEQ/L (20-30); CHLORIDE 109 mEQ/L (98-107); CREATININE 0.6 mg/dL (0.5-0.9); HEMOLYSIS 14; MAGNESIUM 1.9 mg/dL (1.7-2.5); PHOSPHORUS 2.6 mg/dL (2.5-4.8); SODIUM 139 mEQ/L (135-145); TOTAL PROTEIN 6.9 g/dL (6.6-8.7)
[2017-06-08 06:06] LABS: POTASSIUM 2.7 mEQ/L (3.4-4.9)
--- NOTE | 2017-06-08 06:15 | Consultation ---
DATE OF CONSULTATION: 06/07/2017 INFECTIOUS DISEASE CONSULTATION CONSULTING PHYSICIAN: Vero Nogueira M.D. ATTENDING PHYSICIAN: Katy Alvarez M.D. and Dr. Prince. I was asked by Dr. Prince to see this patient. REASON FOR CONSULTATION: Possible sacral coccyx osteomyelitis and wounds, also elevated white count, questionable sepsis, and also conjunctivitis. REASON FOR ADMISSION: Dehydration, hyponatremia, and anemia. HISTORY OF PRESENT ILLNESS: This is a 71-year-old female who has a history of tracheostomy, dysphagia, G-tube, and vent. On discussion with the patient's daughter, has had what sounds like infected wounds in the past and has been on antibiotics in the past including amikacin and Invanz. With regards to Invanz, she had seizures. Organisms are cleared out, although infections are unclear at this time, but the patient's daughter said that the patient has had deep wounds in the past. The patient also has a history of ovarian cancer with metastasis. During the hospitalization, the patient was given IV fluid hydration. During the hospitalization, the patient had a CT scan of the abdomen and pelvis and incidental finding of possible osteo findings concerning for osteo in the sacral and coccyx area. Infectious Diseases consultation was requested for evaluation and management of the CT findings in addition because of leukocytosis. The patient had urinalysis, she only had 0-2 white blood cells. Blood cultures were negative. The patient is afebrile. CT scan shows atelectasis only, but no consolidation. Case was discussed with Dr. Prince and the patient's daughter at length. MAR was noted. Orders were noted. Notes were reviewed. Case was discussed with RN also. The patient currently is in the step-down unit. PAST MEDICAL HISTORY: The patient has a past medical history of wound infections. She has been on antibiotics including amikacin and Invanz, it is unclear what the organisms were. She has a history of metastatic ovarian cancer and cranial resection and brain metastasis. She has a history of OLIVERIO and BSO. She has a history of chemotherapy and radiation treatment. She has a history of anemia, GI bleed, history of G-tube, dysphagia, peptic ulcer disease, weakness, CVA, vent and trach, and respiratory failure. She has a history of seizures. MEDICATIONS: Upon reviewing the MAR, she is on the following medications. The patient is on Cipro eye drops, which are just started, she is on Aqua Tears, polyethylene, Aricept, Zoloft, Dilantin, DuoNeb, Vimpat, Pulmicort, Prevacid, Colace, amlodipine, folic acid, , Keppra, topiramate, clonidine, ascorbic acid, zinc sulfate, sodium chloride, Tylenol, and acetaminophen. ALLERGIES: Dexamethasone. SOCIAL HISTORY: Per the records, no mention of smoking, alcohol, or drug abuse. FAMILY HISTORY: Noncontributory. No mention of exposure to tuberculosis or cancer. REVIEW OF SYSTEMS: Constitutional: She has generalized weakness, fatigue, and poorly responsive at this time. No fevers at this time. Head And Neck: She had a trach. Cardiac: She is not on pressor. Gastrointestinal: No nausea, vomiting, or diarrhea. Genitourinary: She has no [place]. Pulmonary: She has a vent. No significant secretions from the trach. Discussed with nursing staff. Neurologic: No seizures. She has generalized weakness. Skin: She has wounds that were examined and she does not have a maculopapular rash at this time. Otherwise limited. PHYSICAL EXAMINATION: GENERAL: The patient is lethargic and weak. VITAL SIGNS: The patient is afebrile, temperature is 97.7 degrees, pulse rate 68, respiratory rate 21, and saturation 100%, FiO2 35%. HEAD AND NECK: Trach intact. Eye exam, no icterus. Normocephalic. She does have conjunctivitis bilaterally. LUNGS: Decreased breath sounds at the bases. No obvious rales. Occasional rhonchi. HEART: Regular. No gallop or murmur. No friction rub. ABDOMEN: Soft. Positive bowel sounds. G-tube, there is no drainage or cellulitis. GENITOURINARY: No [place]. SKIN: No maculopapular rash. MUSCULOSKELETAL: No effusion. Legs are without cellulitis. PERIPHERAL VASCULAR: No cyanosis. I examined the sacral and buttocks wounds. To me, they do not look like they were deeply infected. They were more superficial. No pus was noted. No surrounding cellulitis. NEUROLOGIC: Generalized weakness, poorly responsive. LINES: Line sites without phlebitis. LABORATORY AND DIAGNOSTIC DATA: Laboratory data as follows: The patient's creatinine is 0.6. White count initially was 16.0. It went down to normal range 10.7, today is 14.5. Creatinine is 0.6. LFTs were noted. Cultures, blood cultures were negative. VRE screen is positive. Also, hemoglobin is in the low of 6.3. UA had 0-2 white blood cells. Of note, she had no diarrhea. Chest x-ray showed effusion on the right and opacities. CT scan of the abdomen and pelvis shows the following. It showed evidence of sacral decubitus changes and evidence of ostial structures at the sacral coccyx junction and coccyx concerning of osteo, and also atelectasis, much of the right lower lobe lung and minimal atelectasis on the left. No mention of consolidation at this time. ASSESSMENT AND PLAN: 1. The patient has leukocytosis, but of unclear etiology at this time. It could be secondary to dehydration and hyponatremia. The infectious disease workup shows that her urinalysis with 0-[address] scan shows atelectasis. Blood cultures are negative to date and the wounds do not look acutely infected on exam. At this time, we will continue to monitor WBC. There is no indication for antibiotics for any acute infection. At this time, if she becomes febrile or her white count continues to worsen or leukocytosis continues to worsen, then consider IV antibiotics and reculturing the patient. She has no diarrhea to suggest C. difficile either. At this time, there is no obvious sepsis source. 2. With regards to her incidental finding of possible osteomyelitis of the sacral coccyx area, if she does have osteomyelitis at this time, most likely this could be a chronic process probably from previous decubitus ulcers in the past since the decubitus ulcers now are more superficial and there is no draining decubitus ulcers. With regards to treating chronic osteomyelitis, at this time it is unclear of the benefit of long-term antibiotics since it sounds like from previous antibiotics, she had multidrug-resistant organisms and I would not commit this patient to six weeks of medications like amikacin or carbapenem because she did have seizures with Invanz in the past per the daughter. In addition, she VRE and again Zyvox or linezolid could cause significant toxicity or side effects. The other question is if she does have osteomyelitis, she most likely has chronic osteomyelitis and the benefits of antibiotics in this clinical situation is unclear. At this time, I think that the risks outweigh the benefits of long-term IV antibiotics and I would favor observation for now and local wound care and monitoring. If the wounds progress, then consider may be giving antibiotics especially if they become infected. This was discussed with Dr. Prince and the patient's daughter at length and multiple questions were answered. At this time, we will continue local wound care protocol. 3. The patient has bilateral conjunctivitis. Continue Cipro eye drops. I discussed with Dr. Prince. 4. Vancomycin-resistant enterococcus isolation and colonization. 5. The patient has a history of ovarian cancer with metastasis and total abdominal hysterectomy/bilateral salpingo-oophorectomy. She also has a history of metastatic brain cancer, status post cranial resection. She has history of radiation treatment and chemotherapy. 6. Anemia. 7. History of gastrointestinal bleed. 8. Tracheostomy and ventilator, respiratory failure. 9. Cerebrovascular accident. 10. Weakness. 11. Peptic ulcer disease. 12. Dysphagia. 13. Gastrostomy tube. 14. Allergies to dexamethasone. 15. Family history is noncontributory. 16. Social history is negative. 17. MAR was noted. 18. Case was discussed with Dr. Prince and the patient's daughter. 19. Case was discussed with RN. 20. Notes were reviewed. 21. Skin care protocol. Vero Nogueira M.D. DR: Deanna JOB#: [id number] CC:
[2017-06-08] MEDS: Ciprofloxacin Opth Soln BOTH EYES SCH ×4 (06:40→23:19)
[2017-06-08] MEDS: Budesonide HHN 0.25mg/2ml ud HHN SCH ×2 (07:53→22:46)
[2017-06-08] MEDS: Zinc Sulfate 220mg cap ORAL SCH (09:51)
[2017-06-08] MEDS: Ascorbic Acid 500mg tab ORAL SCH (09:51)
[2017-06-08] MEDS: levETIRAcetam 500mg/5ml Liquid GT SCH ×2 (09:51→18:19)
[2017-06-08] MEDS: Docusate 100mg/10ml Liq GT SCH ×2 (09:51→18:19)
[2017-06-08] MEDS: Topiramate 100mg tab GT SCH ×2 (09:51→20:24)
[2017-06-08 09:54] LABS: CA 125 42.1 U/mL (0.0-38.1); CA15-3 55.9 U/mL (0.0-25.0)
[2017-06-08] MEDS: Lacosamide 100 MG TABLET ORAL SCH ×2 (10:00→20:23)
[2017-06-08] MEDS: Artificial Tears 1.4% Op Soln BOTH EYES SCH ×2 (10:00→18:19)
[2017-06-08] MEDS ORDERED: KCl 10% 40mEq/30ml liquid NG ONE (10:15)
[2017-06-08] MEDS ORDERED: KCl 10% 20 mEq/15ml liquid NG ONE (10:15)
--- NOTE | 2017-06-08 10:30 | GI Progress Note ---
Assessment/Plan Problems: (1) Elevated CEA ICD Codes: R97.0 - Elevated carcinoembryonic antigen [CEA] SNOMED: 90313247, [id number] (2) Anemia ICD Codes: D64.9 - Anemia, unspecified SNOMED: 478102992 Qualifiers: Qualified Codes: D64.9 - Anemia, unspecified Status: stable Status Narrative Discussed with Dr. Tejada. Assessment/Plan s/p colonoscopy SUMMARY OF FINDINGS: 1. One colonic polyp removed, see above for details. 2. Internal hemorrhoids. OB stool negative RECOMMENDATIONS: resume GTFs fu biopsy monitor H&H, prn transfusion >> prn transfusions ppi fu labs Subjective Subjective limited Objective Last 24 Hour Vital Signs Date Time Temp Pulse Resp B/P (MAP) Pulse Ox O2 Delivery O2 Flow Rate FiO2 06/08/17 09:51 82 136/78 06/08/17 09:22 82 25 35 06/08/17 08:00 69 06/08/17 08:00 35 06/08/17 08:00 97.3 70 16 136/78 99 Mechanical Ventilator 35 06/08/17 07:59 80 16 100 Mechanical Ventilator 35 06/08/17 07:55 98 16 35 06/08/17 07:50 35 06/08/17 07:50 69 16 100 Mechanical Ventilator 35 06/08/17 07:50 70 16 100 Mechanical Ventilator 35 06/08/17 07:40 68 16 100 Mechanical Ventilator 35 06/08/17 07:40 35 06/08/17 05:13 65 22 35 06/08/17 04:04 97.3 66 22 145/77 100 Mechanical Ventilator 35 06/08/17 04:00 35 06/08/17 03:46 78 06/08/17 03:09 71 21 35 06/08/17 01:26 64 16 100 Mechanical Ventilator 35 06/08/17 01:26 35 06/08/17 01:25 70 16 100 Mechanical Ventilator 35 06/08/17 01:23 63 21 35 06/08/17 00:00 98.1 60 19 148/74 100 Mechanical Ventilator 06/08/17 00:00 60 06/07/17 23:15 76 06/07/17 22:45 85 25 35 06/07/17 20:53 71 20 35 06/07/17 20:14 97.5 61 18 135/77 100 Mechanical Ventilator 06/07/17 20:00 60 06/07/17 20:00 35 06/07/17 19:45 78 20 100 Mechanical Ventilator 35 06/07/17 19:45 78 20 100 Mechanical Ventilator 35 06/07/17 19:30 75 21 100 Mechanical Ventilator 35 06/07/17 19:30 74 20 35 06/07/17 19:30 35 06/07/17 19:30 35 06/07/17 19:30 75 20 100 Mechanical Ventilator 35 06/07/17 17:24 59 16 35 06/07/17 16:17 65 06/07/17 16:00 97.8 64 16 136/73 96 Mechanical Ventilator 35 06/07/17 16:00 35 06/07/17 15:21 65 16 35 06/07/17 13:11 68 21 100 Mechanical Ventilator 35 06/07/17 13:11 35 06/07/17 13:02 64 21 35 06/07/17 13:02 84 21 100 Mechanical Ventilator 35 06/07/17 12:08 84 20 100 06/07/17 12:05 82 20 100 06/07/17 12:00 97.7 86 16 127/75 100 Mechanical Ventilator 35 06/07/17 12:00 35 06/07/17 11:20 77 06/07/17 10:50 57 16 100 Mechanical Ventilator 35 06/07/17 10:50 35 06/07/17 10:40 57 20 100 Mechanical Ventilator 35 06/07/17 10:40 57 20 35 06/07/17 10:36 55 142/68 Laboratory Tests Test 06/08/17 03:35 White Blood Count 12.5 K/UL (4.8-10.8) H Red Blood Count 2.48 M/UL (4.20-5.40) L Hemoglobin 8.1 G/DL (12.0-16.0) L Hematocrit 24.0 % (37.0-47.0) L Mean Corpuscular Volume 96 FL (80-99) Mean Corpuscular Hemoglobin 32.6 PG (27.0-31.0) H Mean Corpuscular Hemoglobin Concent 33.8 G/DL (32.0-36.0) Red Cell Distribution Width 13.6 % (11.6-14.8) Platelet Count 136 K/UL (150-450) L Mean Platelet Volume 9.4 FL (6.5-10.1) Neutrophils (%) (Auto) 65.4 % (45.0-75.0) Lymphocytes (%) (Auto) 19.2 % (20.0-45.0) L Monocytes (%) (Auto) 6.1 % (1.0-10.0) Eosinophils (%) (Auto) 8.9 % (0.0-3.0) H Basophils (%) (Auto) 0.5 % (0.0-2.0) Prothrombin Time 11.0 SEC (9.30-11.50) Prothromb Time International Ratio 1.1 (0.9-1.1) Activated Partial Thromboplast Time 37 SEC (23-33) H Sodium Level 139 mEQ/L (135-145) Potassium Level 2.7 mEQ/L (3.4-4.9) *L Chloride Level 109 mEQ/L (98-107) H Carbon Dioxide Level 17 mEQ/L (20-30) L Anion Gap 13 (5-15) Blood Urea Nitrogen 8 mg/dL (7-23) Creatinine 0.6 mg/dL (0.5-0.9) Estimat Glomerular Filtration Rate mL/min (>60) Glucose Level 117 mg/dL (74-106) H Calcium Level 8.5 mg/dL (8.6-10.2) L Phosphorus Level 2.6 mg/dL (2.5-4.8) Magnesium Level 1.9 mg/dL (1.7-2.5) Total Bilirubin 0.2 mg/dL (0.0-1.2) Aspartate Amino Transf (AST/SGOT) 29 U/L (5-40) Alanine Aminotransferase (ALT/SGPT) 34 U/L (3-33) H Alkaline Phosphatase 194 U/L (35-104) H Total Protein 6.9 g/dL (6.6-8.7) Albumin 2.7 g/dL (3.5-5.2) L Globulin 4.2 g/dL Albumin/Globulin Ratio 0.6 (1.0-2.7) L Height (Feet): 4 Height (Inches): 10.00 Weight (Pounds): 120 General Appearance: no apparent distress Cardiovascular: normal rate Respiratory/Chest: other - mech vent Abdominal Exam: GT site - c/d/i Kalani Lockhart N.P. Jun 08, 2017 10:30
--- NOTE | 2017-06-08 10:53 | Pulmonology Progress Note ---
Assessment/Plan Problems: (1) Tracheostomy dependence (2) Chronic respiratory disease (3) Anemia (4) Elevated CEA Assessment/Plan colonoscopy report noted, one polyp removed h/h slowly decreasing respiratory treatment CT of head pending prbc prn check electrolytes dvt prophylaxis. Subjective ROS Limited/Unobtainable: No Constitutional: Reports: no symptoms HEENT: Repors: no symptoms Respiratory: Reports: no symptoms Allergies: Coded Allergies: DEXAMETHASONE (Unverified Allergy, Unknown, 07/10/15) Objective Last 24 Hour Vital Signs Date Time Temp Pulse Resp B/P (MAP) Pulse Ox O2 Delivery O2 Flow Rate FiO2 06/08/17 09:51 82 136/78 06/08/17 09:22 82 25 35 06/08/17 08:00 69 06/08/17 08:00 35 06/08/17 08:00 97.3 70 16 136/78 99 Mechanical Ventilator 35 06/08/17 07:59 80 16 100 Mechanical Ventilator 35 06/08/17 07:55 98 16 35 06/08/17 07:50 35 06/08/17 07:50 69 16 100 Mechanical Ventilator 35 06/08/17 07:50 70 16 100 Mechanical Ventilator 35 06/08/17 07:40 68 16 100 Mechanical Ventilator 35 06/08/17 07:40 35 06/08/17 05:13 65 22 35 06/08/17 04:04 97.3 66 22 145/77 100 Mechanical Ventilator 35 06/08/17 04:00 35 06/08/17 03:46 78 06/08/17 03:09 71 21 35 06/08/17 01:26 64 16 100 Mechanical Ventilator 35 06/08/17 01:26 35 06/08/17 01:25 70 16 100 Mechanical Ventilator 35 06/08/17 01:23 63 21 35 06/08/17 00:00 98.1 60 19 148/74 100 Mechanical Ventilator 06/08/17 00:00 60 06/07/17 23:15 76 06/07/17 22:45 85 25 35 06/07/17 20:53 71 20 35 06/07/17 20:14 97.5 61 18 135/77 100 Mechanical Ventilator 06/07/17 20:00 60 06/07/17 20:00 35 06/07/17 19:45 78 20 100 Mechanical Ventilator 35 06/07/17 19:45 78 20 100 Mechanical Ventilator 35 06/07/17 19:30 75 21 100 Mechanical Ventilator 35 06/07/17 19:30 74 20 35 06/07/17 19:30 35 06/07/17 19:30 35 06/07/17 19:30 75 20 100 Mechanical Ventilator 35 06/07/17 17:24 59 16 35 06/07/17 16:17 65 06/07/17 16:00 97.8 64 16 136/73 96 Mechanical Ventilator 35 06/07/17 16:00 35 06/07/17 15:21 65 16 35 06/07/17 13:11 68 21 100 Mechanical Ventilator 35 06/07/17 13:11 35 06/07/17 13:02 64 21 35 06/07/17 13:02 84 21 100 Mechanical Ventilator 35 06/07/17 12:08 84 20 100 06/07/17 12:05 82 20 100 06/07/17 12:00 97.7 86 16 127/75 100 Mechanical Ventilator 35 06/07/17 12:00 35 06/07/17 11:20 77 General Appearance: WD/WN HEENT: normocephalic, atraumatic Respiratory/Chest: chest wall non-tender, lungs clear, normal breath sounds Cardiovascular: normal peripheral pulses, normal rate Abdomen: normal bowel sounds, soft, non tender, no organomegaly Genitourinary: normal external genitalia Extremities: no cyanosis Skin: no rash 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 Lymphatic: no neck adenopathy, no groin adenopathy Musculoskeletal: normal muscle bulk Laboratory Tests 06/08/17 03:35: White Blood Count 12.5H, Red Blood Count 2.48L, Hemoglobin 8.1L, Hematocrit 24.0L, Mean Corpuscular Volume 96, Mean Corpuscular Hemoglobin 32.6H, Mean Corpuscular Hemoglobin Concent 33.8, Red Cell Distribution Width 13.6, Platelet Count 136L, Mean Platelet Volume 9.4, Neutrophils (%) (Auto) 65.4, Lymphocytes ( %) (Auto) 19.2L, Monocytes (%) (Auto) 6.1, Eosinophils (%) (Auto) 8.9H, Basophils (%) (Auto) 0.5, Prothrombin Time 11.0, Prothromb Time International Ratio 1.1, Activated Partial Thromboplast Time 37H, Sodium Level 139, Potassium Level 2.7*L, Chloride Level 109H, Carbon Dioxide Level 17L, Anion Gap 13, Blood Urea Nitrogen 8, Creatinine 0.6, Estimat Glomerular Filtration Rate , Glucose Level 117H, Calcium Level 8.5L, Phosphorus Level 2.6, Magnesium Level 1.9, Total Bilirubin 0.2, Aspartate Amino Transf (AST/SGOT) 29, Alanine Aminotransferase (ALT/SGPT) 34H, Alkaline Phosphatase 194H, Total Protein 6.9, Albumin 2.7L, Globulin 4.2, Albumin/Globulin Ratio 0.6L Current Medications Medications (Trade) Dose Ordered Sig/Ludivina Route PRN Reason Start Time Stop Time Status Last Admin Dose Admin Acetaminophen (Tylenol) 650 mg Q4H PRN ORAL Mild Pain (Pain Scale 1-3) 06/03/17 17:30 07/03/17 17:29 Albuterol/ Ipratropium (DuoNeb 0.5-3(2.5)mg/3ml) 3 ml Q6HRT N 06/04/17 13:00 06/09/17 12:59 06/08/17 07:52 Amlodipine Besylate (Norvasc) 5 mg DAILY GT 06/04/17 09:00 07/04/17 08:59 06/08/17 09:51 Artificial Tears (Akwa-Tears) 1 drop BID BOTH EYES 06/06/17 22:00 07/06/17 21:59 06/08/17 10:00 Ascorbic Acid (Vitamin C) 500 mg DAILY ORAL 06/04/17 09:00 07/04/17 08:59 06/08/17 09:51 Budesonide (Pulmicort) 0.25 mg Q12HRT N 06/04/17 10:00 07/04/17 09:59 06/08/17 07:53 Ciprofloxacin (Ciloxan Opth Soln) 1 drop Q6HR BOTH EYES 06/07/17 17:00 06/14/17 16:59 06/08/17 06:40 Clonidine HCl (Catapres) 0.1 mg Q6H PRN GT For SBP>180 06/04/17 09:00 07/04/17 08:59 Dextrose (Dextrose 50%) STAT PRN IV Hypoglycemia 06/03/17 17:30 07/03/17 17:29 Docusate Sodium (Colace) 100 mg TWICE A DAY GT 06/04/17 09:30 07/04/17 09:29 06/08/17 09:51 Donepezil HCl (Aricept) 5 mg BEDTIME GT 06/04/17 21:00 07/04/17 20:59 06/07/17 21:34 Folic Acid (Folate) 1 mg DAILY GT 06/04/17 09:00 07/04/17 08:59 06/08/17 09:52 Lacosamide (Vimpat) 200 mg Q12HR ORAL 06/04/17 11:00 07/04/17 10:59 06/08/17 10:00 Lansoprazole (Prevacid) 30 mg Q12HR GT 06/04/17 10:00 07/04/17 09:59 06/08/17 09:51 Levetiracetam (Keppra) 1,500 mg BID GT 06/04/17 09:00 07/04/17 08:59 06/08/17 09:51 Phenytoin (Dilantin) 300 mg BEDTIME ORAL 06/04/17 21:00 07/04/17 20:59 06/07/17 21:35 Polyethylene Glycol (Miralax) 17 gm BEDTIME ORAL 06/05/17 21:00 07/05/17 20:59 06/06/17 21:29 Potassium Chloride 100 ml @ 100 mls/hr Q1HR IVPB 06/08/17 11:00 06/08/17 14:59 Potassium Chloride (KCl 10% 40mEq Oral solution) 40 meq DAILY GT 06/09/17 09:00 07/09/17 08:59 Sertraline HCl (Zoloft) 50 mg BEDTIME GT 06/04/17 21:00 07/04/17 20:59 06/07/17 21:35 Sodium Chloride 1,000 ml @ 75 mls/hr [id number] IV 06/03/17 18:30 07/03/17 18:29 06/08/17 05:09 Topiramate (Topamax) 150 mg Q12HR GT 06/04/17 09:00 07/04/17 08:59 06/08/17 09:51 Zinc Sulfate (Zinc Sulfate) 220 mg DAILY ORAL 9/2/17 09:00 07/04/17 08:59 06/08/17 09:51 BENJY CARMEN Jun 08, 2017 10:53
--- NOTE | 2017-06-08 11:45 | Consultation ---
DATE OF CONSULTATION: 06/07/2017 HEMATOLOGY/ONCOLOGY CONSULTATION REQUESTING PHYSICIAN: 1. Niki Rodriguez M.D. 2. Katy Alvarez M.D. REASON FOR CONSULTATION: Evaluation of anemia, leukocytosis, ovarian cancer with brain metastasis. IDENTIFICATION DATA: Dear Dr. Niki Rodriguez, The patient is a pleasant 71-year-old female with past medical history significant for CVA in 2007, history of ovarian cancer, status post OLIVERIO/BSO with history of chemotherapy, brain metastasis status post cranial radiation x2 with radiation to the brain, , peptic ulcer, trach, bedbound, seizures, nonverbal, G-tube, who presents with anemia, now lethargic for the past several weeks, more confused over the past two days, presented with severe anemia. Again, GI service was consulted. CAT scan of the abdomen and pelvis was ordered as well as potential colonoscopy, results of the colonoscopy are pending. Imaging of the abdomen and pelvis reviewed and showed IV filter in place. nodules in the lateral chest, upper breasts, nodules measuring 14 mm, sacral decubitus ulcerations, suspect intramammary nodes and perisplenic varices. Diagnostic imaging completed as well shows a patent system at the moment. Again, Hematology service consulted. PAST MEDICAL HISTORY: As noted above. MEDICATIONS: Atrovent, lactose-free food, Keppra, metoprolol, potassium chloride, prednisone, sertraline, , doxycycline, omeprazole, aspirin, and amlodipine. ALLERGIES: Dexamethasone. REVIEW OF SYSTEMS: Difficult to obtain due to nonverbal. PHYSICAL EXAMINATION: GENERAL: No acute distress. HEENT: Status post tracheostomy. PULMONARY: Decreased breath sounds. CARDIOVASCULAR: Regular rate. ABDOMEN: Soft. Nontender. Positive for G-tube. EXTREMITIES: No cyanosis, swelling, or edema. Ischial tuberosity noted. LABORATORY DATA: Currently, hemoglobin is 8.5, WBC 14.5, and platelet count of 148,000 . ESR 150, reticulocyte count 1.3, anisocytosis, macrocytosis, hypochromia noted. Platelet count adequate, lymphocytes 37%. Ferritin reviewed 2400. CEA 9.6, CA 19-9 of 0.6, vitamin B12 , CA 27-29 of 95, CA 125 pending. . ASSESSMENT AND PLAN: 1. 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 At this time, treatment includes of care hospice given poor performance status. The patient with tracheostomy, ventilator, and bedbound, unlikely any type of chemotherapy would benefit her in this current physical status. 2. Deep venous thrombosis versus pulmonary embolism. The patient is status post inferior vena cava filter. History is unknown. Obtain further records. 3. Anemia, secondary to gastrointestinal bleed. Results of colonoscopy are pending. The patient with a history of peptic ulceration as well. 4. Elevated tumor markers. CAT scan of the abdomen was reviewed and noted to have metastatic disease to the intramammary nodes. Also, consider brain metastasis in the past, status post radiation. 5. Ovarian cancer, status post chemotherapy with radiation to the brain. At this time, recommend hospice care. 6. Hyponatremia and acute kidney injury. Sodium and serum creatinine improved. 7. Anemia, secondary to chronic disease. Anemia workup reviewed. Colonoscopy results are pending at the moment and transfuse if hemoglobin is less than 5. 8. Gastrostomy tube feedings. 9. Malnutrition. Continue as per primary team. I appreciate the consultation greatly. conservative measures. Jackson Arias M.D. DR: SAMANTHA JOB#: [id number] CC:
--- NOTE | 2017-06-08 16:29 | Diagnostic Imaging Report ---
Indications: Altered mental status Technique: Spiral acquisitions obtained through the brain. Angled axial and coronal 5 x 5 mm slices were reconstructed. Total dose length product 1438 mGycm. CTDI vol(s) 70 mGy. Dose reduction achieved using automated exposure control Comparison: None Findings: There is a large centered in the right parietal lobe and also extending anteriorly into the frontal lobe. This is somewhat ill-defined, but measures approximately 4.7 cm AP by 4.6 cm transverse by approximately 5 cm cranial caudad. This abuts the falx medially, and reaches the dural surface of the convexity peripherally. There is an overlying craniotomy defect. There is extensive surrounding vasogenic edema which is also present in the left convexity as well. There are some calcifications within the anterior and superior periphery of the lesion. There is marked mass effect secondary to the above. There is approximately 2 cm of right left midline shift. There is near-complete attenuation of the right lateral ventricle, with the exception of the temporal horn which is slightly dilated. There is massive hydrocephalus of the left lateral ventricle, indicating compression of the foramina of Paez. There is complete obliteration of the convexity extra-axial CSF spaces. The basilar cisterns are nearly completely obliterated, except for a small portion of the quadrigeminal plate cistern on the right. No acute intracranial hemorrhage. The included orbits are unremarkable. There is considerable right maxillary sinus opacification and considerable left sphenoid sinus opacification. The mastoid air cells are nearly completely opacified and somewhat sclerotic. Impression: Approximately 4.7 x 4.6 x 5 cm mass in the right parietal lobe with extensive vasogenic edema of both hemispheres.. Resultant extensive mass effect. Near-complete nonvisualization of the basilar cisterns is worrisome for impending uncal herniation. There is 2 cm of [id number] midline shift. 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 Overlying craniotomy defect. Correlate with surgical history as regards histology. No acute hemorrhage Critical value findings phoned to Dr. Alvarez by at the time of interpretation The CT scanner at [facility] is accredited by the [employer] and the scans are performed using protocols designed to limit radiation exposure to as low as reasonably achievable to attain images of sufficient resolution adequate for diagnostic evaluation.
[2017-06-08] MEDS ORDERED: Dexamethasone 20mg/5ml IVP ONE ×2 (17:45→19:00)
--- NOTE | 2017-06-08 18:06 | General Progress Note ---
Assessment/Plan Assessment/Plan 1. 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 At this time, of care hospice given poor performance status. The patient with tracheostomy, ventilator, and bedbound, unlikely any type of chemotherapy would benefit her in this current physical status. --> recommend steroids but daughter refusing 2. Deep venous thrombosis versus pulmonary embolism. The patient is status post inferior vena cava filter. --> not a candidate for blood thinner 3. Anemia, secondary to gastrointestinal bleed. Results of colonoscopy: internal hemorrhoids 4. Elevated tumor markers. CAT scan of the abdomen was reviewed and noted to have metastatic disease to the intramammary nodes. Also, consider brain metastasis in the past, status post radiation. 5. Hyponatremia and acute kidney injury. Sodium and serum creatinine improved. 6. Anemia, secondary to chronic disease. Anemia workup reviewed. Colonoscopy results are pending at the moment and transfuse if hemoglobin is less than 7. 8. Gastrostomy tube feedings. 9. Malnutrition. Continue as per primary team. Subjective Constitutional: Reports: no symptoms HEENT: Reports: no symptoms Cardiovascular: Reports: no symptoms Respiratory: Reports: no symptoms Gastrointestinal/Abdominal: Reports: no symptoms Genitourinary: Reports: no symptoms Neurologic/Psychiatric: Reports: no symptoms Endocrine: Reports: no symptoms Hematologic/Lymphatic: Reports: anemia Allergies: Coded Allergies: DEXAMETHASONE (Unverified Allergy, Unknown, 07/10/15) Objective Last 24 Hour Vital Signs Date Time Temp Pulse Resp B/P (MAP) Pulse Ox O2 Delivery O2 Flow Rate FiO2 06/08/17 16:40 70 22 35 06/08/17 16:30 97.7 79 24 137/70 100 Mechanical Ventilator 06/08/17 16:00 81 06/08/17 16:00 35 06/08/17 14:41 77 23 35 06/08/17 13:25 73 16 100 Mechanical Ventilator 35 06/08/17 13:19 79 24 35 06/08/17 13:16 35 06/08/17 13:16 68 18 100 Mechanical Ventilator 35 06/08/17 12:00 35 06/08/17 12:00 97.7 88 16 140/88 100 Mechanical Ventilator 35 06/08/17 11:40 75 06/08/17 10:52 71 22 35 06/08/17 09:51 82 136/78 06/08/17 09:22 82 25 35 06/08/17 08:00 69 06/08/17 08:00 35 06/08/17 08:00 97.3 70 16 136/78 99 Mechanical Ventilator 35 06/08/17 07:59 80 16 100 Mechanical Ventilator 35 06/08/17 07:55 98 16 35 06/08/17 07:50 35 06/08/17 07:50 69 16 100 Mechanical Ventilator 35 06/08/17 07:50 70 16 100 Mechanical Ventilator 35 06/08/17 07:40 68 16 100 Mechanical Ventilator 35 06/08/17 07:40 35 06/08/17 05:13 65 22 35 06/08/17 04:04 97.3 66 22 145/77 100 Mechanical Ventilator 35 06/08/17 04:00 35 06/08/17 03:46 78 06/08/17 03:09 71 21 35 06/08/17 01:26 64 16 100 Mechanical Ventilator 35 06/08/17 01:26 35 06/08/17 01:25 70 16 100 Mechanical Ventilator 35 06/08/17 01:23 63 21 35 06/08/17 00:00 98.1 60 19 148/74 100 Mechanical Ventilator 06/08/17 00:00 60 06/07/17 23:15 76 06/07/17 22:45 85 25 35 06/07/17 20:53 71 20 35 06/07/17 20:14 97.5 61 18 135/77 100 Mechanical Ventilator 06/07/17 20:00 60 06/07/17 20:00 35 06/07/17 19:45 78 20 100 Mechanical Ventilator 35 06/07/17 19:45 78 20 100 Mechanical Ventilator 35 06/07/17 19:30 75 21 100 Mechanical Ventilator 35 06/07/17 19:30 74 20 35 06/07/17 19:30 35 06/07/17 19:30 35 06/07/17 19:30 75 20 100 Mechanical Ventilator 35 Intake and Output 06/08/17 06/09/17 19:00 07:00 Intake Total 1710 ml Balance 1710 ml Intake Free Water 100 ml IV Total 950 ml Tube Feeding 600 ml Other 60 ml Laboratory Tests 06/08/17 03:35: White Blood Count 12.5H, Red Blood Count 2.48L, Hemoglobin 8.1L, Hematocrit 24.0L, Mean Corpuscular Volume 96, Mean Corpuscular Hemoglobin 32.6H, Mean Corpuscular Hemoglobin Concent 33.8, Red Cell Distribution Width 13.6, Platelet Count 136L, Mean Platelet Volume 9.4, Neutrophils (%) (Auto) 65.4, Lymphocytes ( %) (Auto) 19.2L, Monocytes (%) (Auto) 6.1, Eosinophils (%) (Auto) 8.9H, Basophils (%) (Auto) 0.5, Prothrombin Time 11.0, Prothromb Time International Ratio 1.1, Activated Partial Thromboplast Time 37H, Sodium Level 139, Potassium Level 2.7*L, Chloride Level 109H, Carbon Dioxide Level 17L, Anion Gap 13, Blood Urea Nitrogen 8, Creatinine 0.6, Estimat Glomerular Filtration Rate , Glucose Level 117H, Calcium Level 8.5L, Phosphorus Level 2.6, Magnesium Level 1.9, Total Bilirubin 0.2, Aspartate Amino Transf (AST/SGOT) 29, Alanine Aminotransferase (ALT/SGPT) 34H, Alkaline Phosphatase 194H, Total Protein 6.9, Albumin 2.7L, Globulin 4.2, Albumin/Globulin Ratio 0.6L Height (Feet): 4 Height (Inches): 10.00 Weight (Pounds): 120 General Appearance: no apparent distress EENT: PERRL/EOMI Neck: normal alignment Cardiovascular: normal peripheral pulses Respiratory/Chest: no respiratory distress Abdomen: non tender Edema: no edema noted Pedal (L), no edema noted Pedal (R) Jackson Arias Jun 08, 2017 18:06
[2017-06-08] MEDS: Phenytoin 100mg cap ORAL SCH (20:24)
[2017-06-08] MEDS: Sertraline 50mg tab GT SCH (20:24)
[2017-06-08] MEDS: Donepezil 5mg Tab GT SCH (20:25)
[2017-06-08] MEDS: Miralax 17gm pkt ORAL SCH (21:00)
--- NOTE | 2017-06-08 21:25 | General Progress Note ---
Assessment/Plan Problem List: (1) Acute toxic metabolic encephalopathy (2) Acute on chronic anemia (3) Hypernatremia ICD Codes: E87.0 - Hyperosmolality and hypernatremia SNOMED: 73999800 (4) VERNA (acute kidney injury) ICD Codes: N17.9 - Acute kidney failure, unspecified SNOMED: 53492983 (5) Tracheostomy dependence ICD Codes: Z93.0 - Tracheostomy status SNOMED: 057305518, 535893521 (6) Seizure ICD Codes: R56.9 - Unspecified convulsions SNOMED: 98052251 (7) HTN (hypertension) ICD Codes: I10 - Essential (primary) hypertension SNOMED: 14048542 (8) CVA (cerebral vascular accident) ICD Codes: I63.9 - Cerebral infarction, unspecified SNOMED: 998681447 (9) Functional quadriplegia ICD Codes: R53.2 - Functional quadriplegia SNOMED: 145650808470903 (10) Ovarian cancer ICD Codes: C56.9 - Malignant neoplasm of unspecified ovary SNOMED: 926015064 (11) Brain metastases ICD Codes: C79.31 - Secondary malignant neoplasm of brain SNOMED: 39201227 (12) PUD (peptic ulcer disease) ICD Codes: K27.9 - Peptic ulcer, site unspecified, unspecified as acute or chronic, without hemorrhage or perforation SNOMED: 15012854 (13) Leukocytosis ICD Codes: D72.829 - Elevated white blood cell count, unspecified SNOMED: 289084678, 990026779 Qualifiers: Qualified Codes: D72.829 - Elevated white blood cell count, unspecified (14) Left ischial tuberosity stage III pressure ulcer (15) Sacrococcygeal unstageable pressure ulcer with extensive full thickness scar tissue (16) Hypokalemia ICD Codes: E87.6 - Hypokalemia SNOMED: 13654660 Status: stable Assessment/Plan CT head findings reviewed. Case discussed extensively with critical care MD and oncology at [facility] who recommends comfort measures. Pt's daughter requesting further mgmt. Case discussed w/ neurosurgery and neuroICU at [facility] who state that pt is not a surgical candidate. Pt's daughter requesting transfer to [facility] where pt had her original neurosurgery. Pt's daughter to obtain physician info so that we can have an accepting physician for transfer GI consulted s/p 1U pRBC transfusion 06/04 Transfuse for hgb<7 PPI BID F/u CT A/P given elevated tumor markers, anemia s/p colonoscopy on 06/07/17 which showed colon polyp s/p removal Monitor for signs of bleeding Pulm consulted Cont vent IVFs for hypernatremia Hold home lasix given VERNA s/p levaquin in ED on 06/03 Will hold abx for now given no clear infectious source ID consulted given concern for osteo on CT F/u cultures Cont other home meds including AEDs Pain control, supportive care, bowel regimen Cont tube feeds via PEG Cont wound care for pressure ulcers DVT Prophylaxis: SCD Code Status: Full Hospital Classification Declaration: Based on this initial evaluation, and depending on the patient's clinical course, I anticipate that this patient will require hospitalization for 1-2 days for AMS, anemia, hypernatremia, VERNA and close respiratory/hemodynamic monitoring. Disposition: Once the patient is stable to leave the hospital, I anticipate the patient will likely be discharged to the following environment: home with HH + CG vs SNF At the time of my involvement, the patient's condition was critical with high potential for and/or physiologic deterioration secondary to brain mass w/ cerebral edema and midline shift w/ impending uncal herniation as delineated in the note above. On the above date of service, I spent a total of 45 min was spent evaluating, managing, and providing critical care services to this patient, including time spent documenting these activities, counseling patient/family, and coordinating care. Critical care services performed include: Telemetry Review Hemodynamic measurement interpretation Laboratory data review and interpretation Ventilator setting review, management, and adjustment Discussion of care plans with patient, family, and/or surrogate decision makers Discussion of patient's care with primary medical team, surgical team, and/or consulting service Decision to obtain further radiologic evaluation, after consideration of risk/ benefit ratio Decision to perform invasive procedure, after consideration of risk/benefit ratio Review of most recent microbiology results with assessment and modification of antimicrobial coverage Discussion of patient's code status and further advancement towards the ultimate goals of care Discussed with patient/family, nursing staff, SW/CM, GI, pulm, oncology regarding clinical status, treatment course, and disposition planning. Time of note may not reflect time of encounter. Subjective Date patient seen: Jun 08, 2017 Time patient seen: 14:00 ROS Limited/Unobtainable: Yes Allergies: Coded Allergies: No Known Allergies (Unverified , 06/08/17) Subjective s/p colonoscopy yesterday which showed colon polyp s/p removal. No e/o bleeding CT head done w/ concern for R parietal lobe mass w/ midline shift and surrounding cerebral edema. Concern for impending uncal herniation Na and SCr improved Pt cont to be poorly responsive to voice and pain, non-verbal at baseline Per daughter, pt usually more awake, alert, able to track but does not follow commands Unable to obtain ROS given AMS Objective Last 24 Hour Vital Signs Date Time Temp Pulse Resp B/P (MAP) Pulse Ox O2 Delivery O2 Flow Rate FiO2 06/08/17 20:34 78 20 100 Mechanical Ventilator 35 06/08/17 20:34 35 06/08/17 19:48 74 21 100 Mechanical Ventilator 35 06/08/17 19:48 74 21 100 Mechanical Ventilator 35 06/08/17 19:37 97.7 72 24 138/76 100 Mechanical Ventilator 35 06/08/17 19:34 75 20 99 Mechanical Ventilator 35 06/08/17 19:34 35 06/08/17 19:20 74 21 35 06/08/17 16:40 70 22 35 06/08/17 16:30 97.7 79 24 137/70 100 Mechanical Ventilator 35 06/08/17 16:00 81 06/08/17 16:00 35 06/08/17 14:41 77 23 35 06/08/17 13:25 73 16 100 Mechanical Ventilator 35 06/08/17 13:19 79 24 35 06/08/17 13:16 35 06/08/17 13:16 68 18 100 Mechanical Ventilator 35 06/08/17 12:00 35 06/08/17 12:00 97.7 88 16 140/88 100 Mechanical Ventilator 35 06/08/17 11:40 75 06/08/17 10:52 71 22 35 06/08/17 09:51 82 136/78 06/08/17 09:22 82 25 35 06/08/17 08:00 69 06/08/17 08:00 35 06/08/17 08:00 97.3 70 16 136/78 99 Mechanical Ventilator 35 06/08/17 07:59 80 16 100 Mechanical Ventilator 35 06/08/17 07:55 98 16 35 06/08/17 07:50 35 06/08/17 07:50 69 16 100 Mechanical Ventilator 35 06/08/17 07:50 70 16 100 Mechanical Ventilator 35 06/08/17 07:40 68 16 100 Mechanical Ventilator 35 06/08/17 07:40 35 06/08/17 05:13 65 22 35 06/08/17 04:04 97.3 66 22 145/77 100 Mechanical Ventilator 35 06/08/17 04:00 35 06/08/17 03:46 78 06/08/17 03:09 71 21 35 06/08/17 01:26 64 16 100 Mechanical Ventilator 35 06/08/17 01:26 35 06/08/17 01:25 70 16 100 Mechanical Ventilator 35 06/08/17 01:23 63 21 35 06/08/17 00:00 98.1 60 19 148/74 100 Mechanical Ventilator 06/08/17 00:00 60 06/07/17 23:15 76 06/07/17 22:45 85 25 35 Intake and Output 06/08/17 06/09/17 19:00 07:00 Intake Total 1905 ml Output Total 550 ml Balance 1355 ml Intake Free Water 100 ml IV Total 1025 ml Tube Feeding 720 ml Other 60 ml Output Urine Total 550 ml Laboratory Tests 06/08/17 03:35: White Blood Count 12.5H, Red Blood Count 2.48L, Hemoglobin 8.1L, Hematocrit 24.0L, Mean Corpuscular Volume 96, Mean Corpuscular Hemoglobin 32.6H, Mean Corpuscular Hemoglobin Concent 33.8, Red Cell Distribution Width 13.6, Platelet Count 136L, Mean Platelet Volume 9.4, Neutrophils (%) (Auto) 65.4, Lymphocytes ( %) (Auto) 19.2L, Monocytes (%) (Auto) 6.1, Eosinophils (%) (Auto) 8.9H, Basophils (%) (Auto) 0.5, Prothrombin Time 11.0, Prothromb Time International Ratio 1.1, Activated Partial Thromboplast Time 37H, Sodium Level 139, Potassium Level 2.7*L, Chloride Level 109H, Carbon Dioxide Level 17L, Anion Gap 13, Blood Urea Nitrogen 8, Creatinine 0.6, Estimat Glomerular Filtration Rate , Glucose Level 117H, Calcium Level 8.5L, Phosphorus Level 2.6, Magnesium Level 1.9, Total Bilirubin 0.2, Aspartate Amino Transf (AST/SGOT) 29, Alanine Aminotransferase (ALT/SGPT) 34H, Alkaline Phosphatase 194H, Total Protein 6.9, Albumin 2.7L, Globulin 4.2, Albumin/Globulin Ratio 0.6L Height (Feet): 4 Height (Inches): 10.00 Weight (Pounds): 120 Objective General: unresponsive, non-verbal at baseline Head: normocephalic, without obvious abnormality, atraumatic Eyes: conjunctivae/corneas clear. PERRL, EOM's intact Throat: lips, mucosa, and tongue normal. MMM Neck: supple, symmetrical, trachea midline, and no JVD, +trach Lungs: clear to auscultation bilaterally Heart: regular rate and rhythm, S1, S2 normal, no murmur, click, rub or gallop Abdomen: soft, non-tender, non-distended, bowel sounds normal; +G tube c/d/i Extremities: extremities normal, atraumatic, no cyanosis or edema Pulses: 2+ and symmetric Skin: skin color, texture, turgor normal; no rashes or lesions Neurologic: grossly normal, no focal deficits Niki Rodriguez M.D. Jun 08, 2017 21:24
[2017-06-08] MEDS: NovoLOG Insulin Flexpen SUBQ SCH (21:52)
[2017-06-08 22:30] LABS: ANION GAP 12 (5-15); CALCIUM 8.4 mg/dL (8.6-10.2); CARBON DIOXIDE 16 mEQ/L (20-30); CHLORIDE 113 mEQ/L (98-107); CREATININE 0.6 mg/dL (0.5-0.9); HEMOLYSIS 14; POTASSIUM 4.4 mEQ/L (3.4-4.9); SODIUM 141 mEQ/L (135-145)
[2017-06-08] MEDS: Dexamethasone 4mg/ml vial IVP SCH (23:51)
[2017-06-09] MEDS ORDERED: Dexamethasone 4mg/ml vial IVP SCH
[2017-06-09] MEDS: DuoNeb 0.5-3(2.5)mg/3ml neb HHN SCH ×3 (01:20→12:47)
[2017-06-09 03:54] VITALS: BP 136/77
[2017-06-09] MEDS: Dexamethasone 4mg/ml vial IVP SCH ×3 (05:37→17:54)
[2017-06-09] MEDS: Ciprofloxacin Opth Soln BOTH EYES SCH ×3 (05:38→17:55)
[2017-06-09 05:43] LABS: MEAN CORPUSCULAR HEMOGLOBIN 32.7 PG (27.0-31.0); MEAN CORPUSCULAR HGB CONC 33.9 G/DL (32.0-36.0); MEAN CORPUSCULAR VOLUME 97 FL (80-99); MEAN PLATELET VOLUME 9.4 FL (6.5-10.1); PLATELET COUNT 152 K/UL (150-450); RED BLOOD COUNT 2.52 M/UL (4.20-5.40); RED CELL DISTRIBUTION WIDTH 13.7 % (11.6-14.8); WHITE BLOOD COUNT 10.1 K/UL (4.8-10.8)
[2017-06-09 06:01] LABS: ANION GAP 14 (5-15); CARBON DIOXIDE 16 mEQ/L (20-30); CHLORIDE 109 mEQ/L (98-107); CREATININE 0.6 mg/dL (0.5-0.9); HEMOLYSIS 9; POTASSIUM 4.6 mEQ/L (3.4-4.9); SODIUM 139 mEQ/L (135-145)
[2017-06-09] MEDS: NovoLOG Insulin Flexpen SUBQ SCH ×4 (06:02→20:50)
[2017-06-09 07:10] LABS: VITAMIN D 25-OH TOTAL 37 ng/mL (.)
[2017-06-09 07:46] LABS: OTHERS PATHOLOGIST COMMENT
[2017-06-09 07:49] LABS: OTHERS PATHOLOGIST COMMENT
[2017-06-09 07:56] VITALS: BP 112/62
[2017-06-09] MEDS: Lacosamide 100 MG TABLET ORAL SCH ×2 (08:28→20:25)
[2017-06-09] MEDS: Zinc Sulfate 220mg cap ORAL SCH (08:28)
[2017-06-09] MEDS: Docusate 100mg/10ml Liq GT SCH ×2 (08:29→17:56)
[2017-06-09] MEDS: Topiramate 100mg tab GT SCH ×2 (08:29→20:24)
[2017-06-09] MEDS: Ascorbic Acid 500mg tab ORAL SCH (08:30)
[2017-06-09] MEDS: levETIRAcetam 500mg/5ml Liquid GT SCH ×2 (08:30→17:55)
[2017-06-09] MEDS: Artificial Tears 1.4% Op Soln BOTH EYES SCH ×2 (08:39→17:56)
[2017-06-09] MEDS ORDERED: KCl 10% 40mEq/30ml liquid GT SCH (09:00)
[2017-06-09] MEDS ORDERED: KCl 10% 20 mEq/15ml liquid GT SCH (09:00)
[2017-06-09] MEDS: Budesonide HHN 0.25mg/2ml ud HHN SCH ×2 (09:47→21:28)
--- NOTE | 2017-06-09 11:14 | Pulmonology Progress Note ---
Assessment/Plan Problems: (1) Tracheostomy dependence (2) Chronic respiratory disease (3) Anemia (4) Elevated CEA Assessment/Plan colonoscopy report noted, one polyp removed h/h slowly decreasing respiratory treatment CT of head noted, large mass, with edema and shifting midline prbc prn oncology note appreciated I suggest comfort care and also consider removing ventilator and use morphine drip for comfort. Subjective ROS Limited/Unobtainable: No Constitutional: Reports: no symptoms HEENT: Repors: no symptoms Respiratory: Reports: no symptoms Allergies: Coded Allergies: No Known Allergies (Unverified , 06/08/17) Objective Last 24 Hour Vital Signs Date Time Temp Pulse Resp B/P (MAP) Pulse Ox O2 Delivery O2 Flow Rate FiO2 06/09/17 09:28 104 06/09/17 09:16 92 17 35 06/09/17 08:29 105 112/62 06/09/17 08:00 35 06/09/17 07:56 99.3 105 16 112/62 100 Mechanical Ventilator 35 06/09/17 07:22 35 06/09/17 07:22 80 16 100 Mechanical Ventilator 35 06/09/17 07:12 102 33 Mechanical Ventilator 35 06/09/17 07:12 102 24 100 Mechanical Ventilator 35 06/09/17 07:12 103 24 35 06/09/17 05:19 103 23 35 06/09/17 04:00 35 06/09/17 03:54 97.7 98 22 136/77 100 Mechanical Ventilator 35 06/09/17 03:54 98 06/09/17 03:15 98 23 35 06/09/17 01:28 86 16 99 Mechanical Ventilator 35 06/09/17 01:28 86 16 35 06/09/17 01:28 35 06/09/17 01:20 83 21 100 Mechanical Ventilator 35 06/09/17 00:00 35 06/08/17 23:50 83 06/08/17 23:49 97.7 83 21 118/65 100 Mechanical Ventilator 35 06/08/17 22:55 35 06/08/17 22:55 78 20 100 Mechanical Ventilator 35 06/08/17 22:46 81 23 100 Mechanical Ventilator 35 06/08/17 22:42 82 22 35 06/08/17 20:34 78 20 100 Mechanical Ventilator 35 06/08/17 20:34 35 06/08/17 20:00 72 06/08/17 20:00 35 06/08/17 19:48 74 21 100 Mechanical Ventilator 35 06/08/17 19:48 74 21 100 Mechanical Ventilator 35 06/08/17 19:37 97.7 72 24 138/76 100 Mechanical Ventilator 35 06/08/17 19:34 75 20 99 Mechanical Ventilator 35 06/08/17 19:34 35 06/08/17 19:20 74 21 35 06/08/17 19:05 70 22 35 06/08/17 16:40 70 22 35 06/08/17 16:30 97.7 79 24 137/70 100 Mechanical Ventilator 35 06/08/17 16:00 81 06/08/17 16:00 35 06/08/17 14:41 77 23 35 06/08/17 13:25 73 16 100 Mechanical Ventilator 35 06/08/17 13:19 79 24 35 06/08/17 13:16 35 06/08/17 13:16 68 18 100 Mechanical Ventilator 35 06/08/17 12:00 35 06/08/17 12:00 97.7 88 16 140/88 100 Mechanical Ventilator 35 06/08/17 11:40 75 Intake and Output 06/09/17 06/10/17 19:00 07:00 # Bowel Movements 1 General Appearance: WD/WN HEENT: normocephalic, atraumatic Respiratory/Chest: chest wall non-tender, normal breath sounds Breasts: no masses Cardiovascular: normal peripheral pulses, normal rate Abdomen: normal bowel sounds, soft, non tender Genitourinary: normal external genitalia Extremities: no clubbing Skin: no ulcers Neurologic/Psychiatric: no motor/sensory deficits, abnormal gait Laboratory Tests 06/08/17 21:05: Sodium Level 141, Potassium Level 4.4#, Chloride Level 113H, Carbon Dioxide Level 16L, Anion Gap 12, Blood Urea Nitrogen 8, Creatinine 0.6, Estimat Glomerular Filtration Rate , Glucose Level 132H, Calcium Level 8.4L 06/09/17 04:10: Sodium Level 139, Potassium Level 4.6, Chloride Level 109H, Carbon Dioxide Level 16L, Anion Gap 14, Blood Urea Nitrogen 13, Creatinine 0.6, Estimat Glomerular Filtration Rate , Glucose Level 159H, Calcium Level 9.0, White Blood Count 10.1, Red Blood Count 2.52L, Hemoglobin 8.2L, Hematocrit 24.4L, Mean Corpuscular Volume 97, Mean Corpuscular Hemoglobin 32.7H, Mean Corpuscular Hemoglobin Concent 33.9, Red Cell Distribution Width 13.7, Platelet Count 152, Mean Platelet Volume 9.4, Neutrophils (%) (Auto) , Lymphocytes (%) (Auto) , Monocytes (%) (Auto) , Eosinophils (%) (Auto) , Basophils (%) (Auto) Current Medications Medications (Trade) Dose Ordered Sig/Ludivina Route PRN Reason Start Time Stop Time Status Last Admin Dose Admin Acetaminophen (Tylenol) 650 mg Q4H PRN ORAL Mild Pain (Pain Scale 1-3) 06/03/17 17:30 07/03/17 17:29 Albuterol/ Ipratropium (DuoNeb 0.5-3(2.5)mg/3ml) 3 ml Q6HRT HHN 06/04/17 13:00 06/09/17 12:59 06/09/17 07:11 Amlodipine Besylate (Norvasc) 5 mg DAILY GT 06/04/17 09:00 07/04/17 08:59 06/09/17 08:29 Artificial Tears (Akwa-Tears) 1 drop BID BOTH EYES 06/06/17 22:00 07/06/17 21:59 06/09/17 08:39 Ascorbic Acid (Vitamin C) 500 mg DAILY ORAL 06/04/17 09:00 07/04/17 08:59 06/09/17 08:30 Budesonide (Pulmicort) 0.25 mg Q12HRT HHN 06/04/17 10:00 07/04/17 09:59 06/08/17 22:46 Ciprofloxacin (Ciloxan Opth Soln) 1 drop Q6HR BOTH EYES 06/07/17 17:00 06/14/17 16:59 06/09/17 05:38 Clonidine HCl (Catapres) 0.1 mg Q6H PRN GT For SBP>180 06/04/17 09:00 07/04/17 08:59 Dexamethasone Sodium Phosphate (Decadron 4mg/ml vial) 4 mg Q6HR IVP 06/09/17 00:00 07/09/17 00:00 06/09/17 05:37 Dextrose (Dextrose 50%) STAT PRN IV Hypoglycemia 06/03/17 17:30 10/1/17 17:29 Docusate Sodium (Colace) 100 mg TWICE A DAY GT 06/04/17 09:30 07/04/17 09:29 06/09/17 08:29 Donepezil HCl (Aricept) 5 mg BEDTIME GT 06/04/17 21:00 07/04/17 20:59 06/08/17 20:25 Folic Acid (Folate) 1 mg DAILY GT 06/04/17 09:00 07/04/17 08:59 06/09/17 08:28 Insulin Aspart (NovoLOG) BEFORE MEALS AND HS SUBQ 06/08/17 21:00 07/08/17 20:59 06/09/17 06:02 Lacosamide (Vimpat) 200 mg Q12HR ORAL 06/04/17 11:00 07/04/17 10:59 06/09/17 08:28 Lansoprazole (Prevacid) 30 mg Q12HR GT 06/04/17 10:00 07/04/17 09:59 06/09/17 08:30 Levetiracetam (Keppra) 1,500 mg BID GT 06/04/17 09:00 07/04/17 08:59 06/09/17 08:30 Phenytoin (Dilantin) 300 mg BEDTIME ORAL 06/04/17 21:00 07/04/17 20:59 06/08/17 20:24 Polyethylene Glycol (Miralax) 17 gm BEDTIME ORAL 06/05/17 21:00 07/05/17 20:59 06/06/17 21:29 Potassium Chloride (KCl 10% 20 mEq oral solution) 20 meq DAILY GT 06/09/17 09:00 07/09/17 08:59 06/09/17 09:37 Sertraline HCl (Zoloft) 50 mg BEDTIME GT 06/04/17 21:00 07/04/17 20:59 06/08/17 20:24 Sodium Chloride 1,000 ml @ 75 mls/hr [id number] IV 06/03/17 18:30 07/03/17 18:29 06/09/17 08:27 Topiramate (Topamax) 150 mg Q12HR GT 06/04/17 09:00 07/04/17 08:59 06/09/17 08:29 Zinc Sulfate (Zinc Sulfate) 220 mg DAILY ORAL 06/04/17 09:00 07/04/17 08:59 06/09/17 08:28 BENJY CARMEN Jun 09, 2017 11:14
--- NOTE | 2017-06-09 11:18 | GI Progress Note ---
Assessment/Plan Problems: (1) Elevated CEA ICD Codes: R97.0 - Elevated carcinoembryonic antigen [CEA] SNOMED: 93670802, 198787915 (2) Anemia ICD Codes: D64.9 - Anemia, unspecified SNOMED: 177993642 Qualifiers: Qualified Codes: D64.9 - Anemia, unspecified Status: unchanged Status Narrative Discussed with Dr. Tejada. Assessment/Plan s/p colonoscopy SUMMARY OF FINDINGS: 1. One colonic polyp removed, see above for details. 2. Internal hemorrhoids. OB stool negative RECOMMENDATIONS: GTFs per dietary fu biopsy monitor H&H, prn transfusion ppi fu labs Subjective Subjective limited Objective Last 24 Hour Vital Signs Date Time Temp Pulse Resp B/P (MAP) Pulse Ox O2 Delivery O2 Flow Rate FiO2 06/09/17 09:28 104 06/09/17 09:16 92 17 35 06/09/17 08:29 105 112/62 06/09/17 08:00 35 06/09/17 07:56 99.3 105 16 112/62 100 Mechanical Ventilator 35 06/09/17 07:22 35 06/09/17 07:22 80 16 100 Mechanical Ventilator 35 06/09/17 07:12 102 33 Mechanical Ventilator 35 06/09/17 07:12 102 24 100 Mechanical Ventilator 35 06/09/17 07:12 103 24 35 06/09/17 05:19 103 23 35 06/09/17 04:00 35 06/09/17 03:54 97.7 98 22 136/77 100 Mechanical Ventilator 35 06/09/17 03:54 98 06/09/17 03:15 98 23 35 06/09/17 01:28 86 16 99 Mechanical Ventilator 35 06/09/17 01:28 86 16 35 06/09/17 01:28 35 06/09/17 01:20 83 21 100 Mechanical Ventilator 35 06/09/17 00:00 35 06/08/17 23:50 83 06/08/17 23:49 97.7 83 21 118/65 100 Mechanical Ventilator 35 06/08/17 22:55 35 06/08/17 22:55 78 20 100 Mechanical Ventilator 35 06/08/17 22:46 81 23 100 Mechanical Ventilator 35 06/08/17 22:42 82 22 35 06/08/17 20:34 78 20 100 Mechanical Ventilator 35 06/08/17 20:34 35 06/08/17 20:00 72 06/08/17 20:00 35 06/08/17 19:48 74 21 100 Mechanical Ventilator 35 06/08/17 19:48 74 21 100 Mechanical Ventilator 35 06/08/17 19:37 97.7 72 24 138/76 100 Mechanical Ventilator 35 06/08/17 19:34 75 20 99 Mechanical Ventilator 35 06/08/17 19:34 35 06/08/17 19:20 74 21 35 06/08/17 19:05 70 22 35 06/08/17 16:40 70 22 35 06/08/17 16:30 97.7 79 24 137/70 100 Mechanical Ventilator 06/08/17 16:00 81 06/08/17 16:00 35 06/08/17 14:41 77 23 35 06/08/17 13:25 73 16 100 Mechanical Ventilator 35 06/08/17 13:19 79 24 35 06/08/17 13:16 35 06/08/17 13:16 68 18 100 Mechanical Ventilator 35 06/08/17 12:00 35 06/08/17 12:00 97.7 88 16 140/88 100 Mechanical Ventilator 35 06/08/17 11:40 75 Intake and Output 06/09/17 06/10/17 19:00 07:00 # Bowel Movements 1 Laboratory Tests Test 06/08/17 21:05 06/09/17 04:10 Sodium Level 141 mEQ/L (135-145) 139 mEQ/L (135-145) Potassium Level 4.4 mEQ/L (3.4-4.9) # 4.6 mEQ/L (3.4-4.9) Chloride Level 113 mEQ/L (98-107) H 109 mEQ/L (98-107) H Carbon Dioxide Level 16 mEQ/L (20-30) L 16 mEQ/L (20-30) L Anion Gap 12 (5-15) 14 (5-15) Blood Urea Nitrogen 8 mg/dL (7-23) 13 mg/dL (7-23) Creatinine 0.6 mg/dL (0.5-0.9) 0.6 mg/dL (0.5-0.9) Estimat Glomerular Filtration Rate mL/min (>60) mL/min (>60) Glucose Level 132 mg/dL (74-106) H 159 mg/dL (74-106) H Calcium Level 8.4 mg/dL (8.6-10.2) L 9.0 mg/dL (8.6-10.2) White Blood Count 10.1 K/UL (4.8-10.8) Red Blood Count 2.52 M/UL (4.20-5.40) L Hemoglobin 8.2 G/DL (12.0-16.0) L Hematocrit 24.4 % (37.0-47.0) L Mean Corpuscular Volume 97 FL (80-99) Mean Corpuscular Hemoglobin 32.7 PG (27.0-31.0) H Mean Corpuscular Hemoglobin Concent 33.9 G/DL (32.0-36.0) Red Cell Distribution Width 13.7 % (11.6-14.8) Platelet Count 152 K/UL (150-450) Mean Platelet Volume 9.4 FL (6.5-10.1) Neutrophils (%) (Auto) % (45.0-75.0) Lymphocytes (%) (Auto) % (20.0-45.0) Monocytes (%) (Auto) % (1.0-10.0) Eosinophils (%) (Auto) % (0.0-3.0) Basophils (%) (Auto) % (0.0-2.0) Height (Feet): 4 Height (Inches): 10.00 Weight (Pounds): 120 General Appearance: no apparent distress Cardiovascular: normal rate Respiratory/Chest: other - [facility] Kalani Odom N.P. Jun 09, 2017 11:18
[2017-06-09 11:47] VITALS: BP_SYST 108; BP_SYST 129; BP_DIAS 64; BP_DIAS 77
--- NOTE | 2017-06-09 14:40 | General Progress Note ---
Assessment/Plan Problem List: (1) Acute toxic metabolic encephalopathy (2) Acute on chronic anemia (3) Hypernatremia ICD Codes: E87.0 - Hyperosmolality and hypernatremia SNOMED: 59133984 (4) VERNA (acute kidney injury) ICD Codes: N17.9 - Acute kidney failure, unspecified SNOMED: 65893944 (5) Tracheostomy dependence ICD Codes: Z93.0 - Tracheostomy status SNOMED: 988585074, 515804575 (6) Seizure ICD Codes: R56.9 - Unspecified convulsions SNOMED: 48315618 (7) HTN (hypertension) ICD Codes: I10 - Essential (primary) hypertension SNOMED: 46838641 (8) CVA (cerebral vascular accident) ICD Codes: I63.9 - Cerebral infarction, unspecified SNOMED: 607402823 (9) Functional quadriplegia ICD Codes: R53.2 - Functional quadriplegia SNOMED: 367940804524348 (10) Ovarian cancer ICD Codes: C56.9 - Malignant neoplasm of unspecified ovary SNOMED: 013923587 (11) Brain metastases ICD Codes: C79.31 - Secondary malignant neoplasm of brain SNOMED: 63523117 (12) PUD (peptic ulcer disease) ICD Codes: K27.9 - Peptic ulcer, site unspecified, unspecified as acute or chronic, without hemorrhage or perforation SNOMED: 44488081 (13) Leukocytosis ICD Codes: D72.829 - Elevated white blood cell count, unspecified SNOMED: 844925692, 091656401 Qualifiers: Qualified Codes: D72.829 - Elevated white blood cell count, unspecified (14) Left ischial tuberosity stage III pressure ulcer (15) Sacrococcygeal unstageable pressure ulcer with extensive full thickness scar tissue (16) Hypokalemia ICD Codes: E87.6 - Hypokalemia SNOMED: 66364582 Status: stable Assessment/Plan CT head findings reviewed. Case discussed extensively with critical care MD and oncology at [facility] who recommends comfort measures. Pt's daughter requesting further mgmt. Case discussed w/ neurosurgery and neuroICU at [facility] who state that pt is not a surgical candidate. Pt's daughter requesting transfer to care of neurosurgeon Dr. Dias--spoke to his [employer] and they defer to pt's original neurosurgeon as Dr. Dias did not operate on pt. Daughter to contact original neurosurgeon at [facility] GI consulted s/p 1U pRBC transfusion 06/04 Transfuse for hgb<[address] a/p reviewed s/p colonoscopy on 06/07/17 which showed colon polyp s/p removal Monitor for signs of bleeding Pulm consulted Cont vent IVFs for hypernatremia Hold home lasix given VERNA s/p levaquin in ED on 06/03 Will hold abx for now given no clear infectious source ID consulted given concern for osteo on CT F/u cultures Cont other home meds including AEDs Pain control, supportive care, bowel regimen Cont tube feeds via PEG Cont wound care for pressure ulcers DVT Prophylaxis: SCD Code Status: Full Hospital Classification Declaration: Based on this initial evaluation, and depending on the patient's clinical course, I anticipate that this patient will require hospitalization for 1-2 days for AMS, anemia, hypernatremia, VERNA and close respiratory/hemodynamic monitoring. Disposition: Once the patient is stable to leave the hospital, I anticipate the patient will likely be discharged to the following environment: home with HH + CG vs SNF At the time of my involvement, the patient's condition was critical with high potential for and/or physiologic deterioration secondary to brain mass w/ cerebral edema and midline shift w/ impending uncal herniation as delineated in the note above. On the above date of service, I spent a total of 40 min was spent evaluating, managing, and providing critical care services to this patient, including time spent documenting these activities, counseling patient/family, and coordinating care. Critical care services performed include: Telemetry Review Hemodynamic measurement interpretation Laboratory data review and interpretation Ventilator setting review, management, and adjustment Discussion of care plans with patient, family, and/or surrogate decision makers Discussion of patient's care with primary medical team, surgical team, and/or consulting service Decision to obtain further radiologic evaluation, after consideration of risk/ benefit ratio Decision to perform invasive procedure, after consideration of risk/benefit ratio Review of most recent microbiology results with assessment and modification of antimicrobial coverage Discussion of patient's code status and further advancement towards the ultimate goals of care Discussed with patient/family, nursing staff, SW/CM, GI, pulm, oncology regarding clinical status, treatment course, and disposition planning. D/w PCP Dr. Perez who also discussed w/ pt's daughter. D/w pt's prior neurosurgeon Dr. Dias's [employer]. Time of note may not reflect time of encounter. Subjective Date patient seen: Jun 09, 2017 Time patient seen: 14:40 Allergies: Coded Allergies: No Known Allergies (Unverified , 06/08/17) Subjective CT head done w/ concern for R parietal lobe mass w/ midline shift and surrounding cerebral edema. Concern for impending uncal herniation Na and SCr improved K improved Started on IV decadron yesterday Pt cont to be poorly responsive to voice and pain, non-verbal at baseline Per daughter, pt slightly improved today. Opened her eyes Daughter wishes to transfer pt to another facility. D/w neurosurgeon Dr. Dias who pt as seen prior but they state pt is not an established pt and defer to neurosurgeon who performed initial surgery. Daughter to contact initial neurosurgeon Unable to obtain ROS given AMS Objective Last 24 Hour Vital Signs Date Time Temp Pulse Resp B/P (MAP) Pulse Ox O2 Delivery O2 Flow Rate FiO2 06/09/17 12:57 35 06/09/17 12:57 91 16 100 Mechanical Ventilator 35 06/09/17 12:48 90 16 100 Mechanical Ventilator 35 06/09/17 12:48 84 22 35 06/09/17 12:00 83 06/09/17 12:00 35 06/09/17 11:47 98.1 77 16 129/77 100 Mechanical Ventilator 35 06/09/17 11:15 88 16 35 06/09/17 09:56 35 06/09/17 09:56 88 16 100 Mechanical Ventilator 35 06/09/17 09:47 86 16 100 Mechanical Ventilator 35 06/09/17 09:28 104 06/09/17 09:16 92 17 35 06/09/17 08:29 105 112/62 06/09/17 08:00 35 06/09/17 07:56 99.3 105 16 112/62 100 Mechanical Ventilator 35 06/09/17 07:22 35 06/09/17 07:22 80 16 100 Mechanical Ventilator 35 06/09/17 07:12 102 33 Mechanical Ventilator 35 06/09/17 07:12 102 24 100 Mechanical Ventilator 35 06/09/17 07:12 103 24 35 06/09/17 05:19 103 23 35 06/09/17 04:00 35 06/09/17 03:54 97.7 98 22 136/77 100 Mechanical Ventilator 35 06/09/17 03:54 98 06/09/17 03:15 98 23 35 06/09/17 01:28 86 16 99 Mechanical Ventilator 35 06/09/17 01:28 86 16 35 06/09/17 01:28 35 06/09/17 01:20 83 21 100 Mechanical Ventilator 35 06/09/17 00:00 35 06/08/17 23:50 83 06/08/17 23:49 97.7 83 21 118/65 100 Mechanical Ventilator 35 06/08/17 22:55 35 06/08/17 22:55 78 20 100 Mechanical Ventilator 35 06/08/17 22:46 81 23 100 Mechanical Ventilator 35 06/08/17 22:42 82 22 35 06/08/17 20:34 78 20 100 Mechanical Ventilator 35 06/08/17 20:34 35 06/08/17 20:00 72 06/08/17 20:00 35 06/08/17 19:48 74 21 100 Mechanical Ventilator 35 06/08/17 19:48 74 21 100 Mechanical Ventilator 35 06/08/17 19:37 97.7 72 24 138/76 100 Mechanical Ventilator 35 06/08/17 19:34 75 20 99 Mechanical Ventilator 35 06/08/17 19:34 35 06/08/17 19:20 74 21 35 06/08/17 19:05 70 22 35 06/08/17 16:40 70 22 35 06/08/17 16:30 97.7 79 24 137/70 100 Mechanical Ventilator 35 06/08/17 16:00 81 06/08/17 16:00 35 06/08/17 14:41 77 23 35 Intake and Output 06/09/17 06/10/17 19:00 07:00 Intake Total 775 ml Balance 775 ml Intake Free Water 100 ml IV Total 375 ml Tube Feeding 300 ml # Bowel Movements 3 Laboratory Tests 06/08/17 21:05: Sodium Level 141, Potassium Level 4.4#, Chloride Level 113H, Carbon Dioxide Level 16L, Anion Gap 12, Blood Urea Nitrogen 8, Creatinine 0.6, Estimat Glomerular Filtration Rate , Glucose Level 132H, Calcium Level 8.4L 06/09/17 04:10: Sodium Level 139, Potassium Level 4.6, Chloride Level 109H, Carbon Dioxide Level 16L, Anion Gap 14, Blood Urea Nitrogen 13, Creatinine 0.6, Estimat Glomerular Filtration Rate , Glucose Level 159H, Calcium Level 9.0, White Blood Count 10.1, Red Blood Count 2.52L, Hemoglobin 8.2L, Hematocrit 24.4L, Mean Corpuscular Volume 97, Mean Corpuscular Hemoglobin 32.7H, Mean Corpuscular Hemoglobin Concent 33.9, Red Cell Distribution Width 13.7, Platelet Count 152, Mean Platelet Volume 9.4, Neutrophils (%) (Auto) , Lymphocytes (%) (Auto) , Monocytes (%) (Auto) , Eosinophils (%) (Auto) , Basophils (%) (Auto) Height (Feet): 4 Height (Inches): 10.00 Weight (Pounds): 120 Objective General: unresponsive, non-verbal at baseline Head: normocephalic, without obvious abnormality, atraumatic Eyes: conjunctivae/corneas clear. PERRL, EOM's intact Throat: lips, mucosa, and tongue normal. MMM Neck: supple, symmetrical, trachea midline, and no JVD, +trach Lungs: clear to auscultation bilaterally Heart: regular rate and rhythm, S1, S2 normal, no murmur, click, rub or gallop Abdomen: soft, non-tender, non-distended, bowel sounds normal; +G tube c/d/i Extremities: extremities normal, atraumatic, no cyanosis or edema Pulses: 2+ and symmetric Skin: skin color, texture, turgor normal; no rashes or lesions Neurologic: grossly normal, no focal deficits Niki Rodriguez M.D. Jun 09, 2017 14:40
--- NOTE | 2017-06-09 14:51 | Diagnostic Imaging Report ---
APPROVED REPORT CPT Code: 40039 Present Symptoms Lower Extremity Pain: Bilateral BILATERAL: Imaging reveals a patent deep venous system bilaterally. There is no evidence of thrombus within the femoral, popliteal or tibial segments. The greater saphenous veins are also within normal limits. Doppler indicates normal spontaneous flow within these segments.
[2017-06-09 16:00] VITALS: BP 131/73
--- NOTE | 2017-06-09 16:39 | Infectious Diseases Prog Note ---
Assessment/Plan Assessment/Plan A) 1) ? sacral/coccyx osteo on Ct abdomen and pelvis, likely chronic if osteo 2) sacral wounds do not look acutely infected and are more superficial, hx of deeper wounds per d/w daughter 3) leukocytosis of unclear etiology, ct with atx, blood cultures negative, ua 0-2 wbc only, dehydration, bilateral conjunctivitis, atx on CT - leukocytosis resolved 4) trach, vent, cva, weakness, pud, dysphagia, g-tube, anemia, hx gib, ovarian ca with mets, luke, sbo, brain mets/cranial resection, hx RT/chemo 5) allergies - dexamethasone 6) mar noted, notes and records noted, sh-negative, fh-nc 7) d/w RN P) 1) watch wbc, ivf hydration, systemic abx if indicated, cipro eye drops for conjunctivitis - conjunctivitis improved 2) Favor local wound care and observation for now with regards to ? chronic osteo and superficial wounds. I had discussion with Dr. Prince and daughter and I think risks outweigh benefits for giving 6 weeks iv abx. Please see consult dictation. 3) continue treatment per Dr. Prince and consultants 4) wound care per protocol 5) orders entered and noted Subjective Constitutional: Denies: fever HEENT: Denies: congestion Respiratory: Denies: shortness of breath Cardiovascular: Reports: other - no pressors Gastrointestinal/Abdominal: Denies: vomiting, diarrhea Genitourinary: Reports: other - + hall Neurologic: Denies: headache Psychiatric: Reports: no symptoms Skin: Denies: rash Hematologic: Reports: no symptoms Musculoskeletal: Reports: no symptoms Allergies: Coded Allergies: No Known Allergies (Unverified , 06/08/17) Objective Vital Signs Last 24 Hour Vital Signs Date Time Temp Pulse Resp B/P (MAP) Pulse Ox O2 Delivery O2 Flow Rate FiO2 06/09/17 16:00 97.7 84 16 131/73 100 Mechanical Ventilator 35 06/09/17 16:00 35 06/09/17 15:23 84 22 35 06/09/17 12:57 35 06/09/17 12:57 91 16 100 Mechanical Ventilator 35 06/09/17 12:48 90 16 100 Mechanical Ventilator 35 06/09/17 12:48 84 22 35 06/09/17 12:00 83 06/09/17 12:00 35 9/7/17 11:47 98.1 77 16 129/77 100 Mechanical Ventilator 35 /7/17 11:15 88 16 35 //17 09:56 35 /7/17 09:56 88 16 100 Mechanical Ventilator 35 /7/17 09:47 86 16 100 Mechanical Ventilator 35 /7/17 09:28 104 /04/18 09:16 92 17 35 17 08:29 105 112/62 17 08:00 35 17 07:56 99.3 105 16 112/62 100 Mechanical Ventilator 35 17 07:22 35 06/09/ 07:22 80 16 100 Mechanical Ventilator 35 06/09/17 07:12 102 33 Mechanical Ventilator 35 06/09/17 07:12 102 24 100 Mechanical Ventilator 35 06/09/17 07:12 103 24 35 06/09/17 05:19 103 23 35 06/09/17 04:00 35 06/09/17 03:54 97.7 98 22 136/77 100 Mechanical Ventilator 35 06/09/17 03:54 98 06/09/17 03:15 98 23 35 06/09/17 01:28 86 16 99 Mechanical Ventilator 35 06/09/17 01:28 86 16 35 06/09/17 01:28 35 06/09/17 01:20 83 21 100 Mechanical Ventilator 35 06/09/17 00:00 35 06/08/17 23:50 83 /03/19 23:49 97.7 83 21 118/65 100 Mechanical Ventilator 35 06/08/17 22:55 35 /6/17 22:55 78 20 100 Mechanical Ventilator 35 17 22:46 81 23 100 Mechanical Ventilator 35 6/17 22:42 82 22 35 /6/17 20:34 78 20 100 Mechanical Ventilator 35 6/17 20:34 35 /6/17 20:00 72 /6/17 20:00 35 /6/17 19:48 74 21 100 Mechanical Ventilator 35 /6/17 19:48 74 21 100 Mechanical Ventilator 35 6/17 19:37 97.7 72 24 138/76 100 Mechanical Ventilator 35 6/17 19:34 75 20 99 Mechanical Ventilator 35 6/17 19:34 35 /6/17 19:20 74 21 35 06/08/17 19:05 70 22 35 06/08/17 16:40 70 22 35 Height (Feet): 4 Height (Inches): 10.00 Weight (Pounds): 120 General Appearance: no acute distress - nad on vent, more alert, other HEENT: normocephalic, atraumatic, anicteric, no JVD, status post trach Respiratory/Chest: decreased breath sounds, rhonchi - bilaterally, other - on vent Cardiovascular: normal rate, regular rhythm, no gallop/murmur, no JVD Abdomen: normal bowel sounds, soft, non tender, no organomegaly, non distended Genitourinary: other - + hall - urine slt cloudy Extremities: no cyanosis Skin: no rash Neurologic/Psychiatric: 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 Evidence of osseous destructive change at the sacrococcygeal junction and coccyx concerning for osteomyelitis. Atelectasis of much or perhaps all of the right lower lobe lung. Minimal atelectatic changes are seen at the left lung base Broad-based ventral hernia, containing a few loops of small bowel as well as a knuckle of the transverse colon. No evidence of obstruction or strangulation related to such Inferior vena cava filter in place, no evident complication. Note that this appears to be a temporary filter. Consideration should be given to retrieval if no longer indicated, or replacement with a permanent filter if long-term inferior vena cava filtration is indicated Numerous bilateral breast/chest wall nodules. Suspect on the basis of intramammary nodes. 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 Complete 06/03/17 17:15 Rectum VRE Culture - Final Enterococcus Faecalis - Vre Complete Laboratory Tests Test 06/08/17 21:05 06/09/17 04:10 Sodium Level 141 mEQ/L (135-145) 139 mEQ/L (135-145) Potassium Level 4.4 mEQ/L (3.4-4.9) # 4.6 mEQ/L (3.4-4.9) Chloride Level 113 mEQ/L (98-107) H 109 mEQ/L (98-107) H Carbon Dioxide Level 16 mEQ/L (20-30) L 16 mEQ/L (20-30) L Anion Gap 12 (5-15) 14 (5-15) Blood Urea Nitrogen 8 mg/dL (7-23) 13 mg/dL (7-23) Creatinine 0.6 mg/dL (0.5-0.9) 0.6 mg/dL (0.5-0.9) Estimat Glomerular Filtration Rate mL/min (>60) mL/min (>60) Glucose Level 132 mg/dL (74-106) H 159 mg/dL (74-106) H Calcium Level 8.4 mg/dL (8.6-10.2) L 9.0 mg/dL (8.6-10.2) White Blood Count 10.1 K/UL (4.8-10.8) Red Blood Count 2.52 M/UL (4.20-5.40) L Hemoglobin 8.2 G/DL (12.0-16.0) L Hematocrit 24.4 % (37.0-47.0) L Mean Corpuscular Volume 97 FL (80-99) Mean Corpuscular Hemoglobin 32.7 PG (27.0-31.0) H Mean Corpuscular Hemoglobin Concent 33.9 G/DL (32.0-36.0) Red Cell Distribution Width 13.7 % (11.6-14.8) Platelet Count 152 K/UL (150-450) Mean Platelet Volume 9.4 FL (6.5-10.1) Neutrophils (%) (Auto) % (45.0-75.0) Lymphocytes (%) (Auto) % (20.0-45.0) Monocytes (%) (Auto) % (1.0-10.0) Eosinophils (%) (Auto) % (0.0-3.0) Basophils (%) (Auto) % (0.0-2.0) Current Medications Medications (Trade) Dose Ordered Sig/Ludivina Route PRN Reason Start Time Stop Time Status Last Admin Dose Admin Acetaminophen (Tylenol) 650 mg Q4H PRN ORAL Mild Pain (Pain Scale 1-3) 06/03/17 17:30 07/03/17 17:29 Amlodipine Besylate (Norvasc) 5 mg DAILY GT 06/04/17 09:00 07/04/17 08:59 06/09/17 08:29 Artificial Tears (Akwa-Tears) 1 drop BID BOTH EYES 06/06/17 22:00 07/06/17 21:59 06/09/17 08:39 Ascorbic Acid (Vitamin C) 500 mg DAILY ORAL 06/04/17 09:00 07/04/17 08:59 06/09/17 08:30 Budesonide (Pulmicort) 0.25 mg Q12HRT HHN 06/04/17 10:00 07/04/17 09:59 06/09/17 09:47 Ciprofloxacin (Ciloxan Opth Soln) 1 drop Q6HR BOTH EYES 06/07/17 17:00 06/14/17 16:59 06/09/17 12:03 Clonidine HCl (Catapres) 0.1 mg Q6H PRN GT For SBP>180 06/04/17 09:00 07/04/17 08:59 Dexamethasone Sodium Phosphate (Decadron 4mg/ml vial) 4 mg Q6HR IVP 06/09/17 00:00 07/09/17 00:00 06/09/17 12:00 Dextrose (Dextrose 50%) STAT PRN IV Hypoglycemia 06/03/17 17:30 07/03/17 17:29 Docusate Sodium (Colace) 100 mg TWICE A DAY GT 06/04/17 09:30 07/04/17 09:29 06/09/17 08:29 Donepezil HCl (Aricept) 5 mg BEDTIME GT 06/04/17 21:00 07/04/17 20:59 06/08/17 20:25 Folic Acid (Folate) 1 mg DAILY GT 06/04/17 09:00 07/04/17 08:59 06/09/17 08:28 Insulin Aspart (NovoLOG) BEFORE MEALS AND HS SUBQ 06/08/17 21:00 07/08/17 20:59 06/09/17 12:02 Lacosamide (Vimpat) 200 mg Q12HR ORAL 06/04/17 11:00 07/04/17 10:59 06/09/17 08:28 Lansoprazole (Prevacid) 30 mg Q12HR GT 06/04/17 10:00 07/04/17 09:59 06/09/17 08:30 Levetiracetam (Keppra) 1,500 mg BID GT 06/04/17 09:00 07/04/17 08:59 06/09/17 08:30 Phenytoin (Dilantin) 300 mg BEDTIME ORAL 06/04/17 21:00 07/04/17 20:59 06/08/17 20:24 Polyethylene Glycol (Miralax) 17 gm BEDTIME ORAL 06/05/17 21:00 07/05/17 20:59 06/06/17 21:29 Sertraline HCl (Zoloft) 50 mg BEDTIME GT 06/04/17 21:00 07/04/17 20:59 06/08/17 20:24 Sodium Chloride 1,000 ml @ 75 mls/hr [id number] IV 06/03/17 18:30 07/03/17 18:29 06/09/17 08:27 Topiramate (Topamax) 150 mg Q12HR GT 06/04/17 09:00 07/04/17 08:59 06/09/17 08:29 Zinc Sulfate (Zinc Sulfate) 220 mg DAILY ORAL 06/04/17 09:00 07/04/17 08:59 06/09/17 08:28 BALWINDER CASTRO Jun 09, 2017 16:39
[2017-06-09 20:06] VITALS: BP 153/75
[2017-06-09] MEDS: Miralax 17gm pkt ORAL SCH (20:25)
[2017-06-09] MEDS: Sertraline 50mg tab GT SCH (20:25)
[2017-06-09] MEDS: Phenytoin 100mg cap ORAL SCH (20:25)
[2017-06-09] MEDS: Donepezil 5mg Tab GT SCH (20:25)
--- NOTE | 2017-06-09 23:23 | General Progress Note ---
Assessment/Plan Assessment/Plan 1. 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 At this time, of care hospice given poor performance status. The patient with tracheostomy, ventilator, and bedbound, unlikely any type of chemotherapy would benefit her in this current physical status. --> recommend steroids as per neurology/neurosurgery, daughter has refused in the past but now potentially agreeable 2. Deep venous thrombosis versus pulmonary embolism. The patient is status post inferior vena cava filter. --> not a candidate for blood thinner 3. Anemia, secondary to gastrointestinal bleed. Results of colonoscopy: internal hemorrhoids --> polyp removed for biopsy, shows evidence of tubular adenoma. --> GI following 4. Elevated tumor markers. CAT scan of the abdomen was reviewed and noted to have metastatic disease to the intramammary nodes. Also, consider brain metastasis in the past, status post radiation. 5. Hyponatremia and acute kidney injury. Sodium and serum creatinine improved. 6. Anemia, secondary to chronic disease. Anemia workup reviewed. Colonoscopy results are pending at the moment and transfuse if hemoglobin is less than 7. 8. Gastrostomy tube feedings. 9. Malnutrition. Continue as per primary team. Subjective ROS Limited/Unobtainable: Yes Allergies: Coded Allergies: No Known Allergies (Unverified , 06/08/17) Objective Last 24 Hour Vital Signs Date Time Temp Pulse Resp B/P (MAP) Pulse Ox O2 Delivery O2 Flow Rate FiO2 06/09/17 22:48 89 22 35 06/09/17 21:36 86 23 100 Mechanical Ventilator 35 06/09/17 21:27 91 24 100 Mechanical Ventilator 35 06/09/17 21:27 35 06/09/17 21:26 92 24 35 06/09/17 20:06 97.9 91 29 153/75 100 Mechanical Ventilator 35 06/09/17 20:00 35 06/09/17 20:00 84 06/09/17 19:11 84 26 35 06/09/17 16:31 74 06/09/17 16:00 97.7 84 16 131/73 100 Mechanical Ventilator 35 06/09/17 16:00 35 06/09/17 15:23 84 22 35 06/09/17 12:57 35 06/09/17 12:57 91 16 100 Mechanical Ventilator 35 06/09/17 12:48 90 16 100 Mechanical Ventilator 35 06/09/17 12:48 84 22 35 06/09/17 12:00 83 06/09/17 12:00 35 06/09/17 11:47 98.1 77 16 129/77 100 Mechanical Ventilator 35 06/09/17 11:15 88 16 35 06/09/17 09:56 35 06/09/17 09:56 88 16 100 Mechanical Ventilator 35 06/09/17 09:47 86 16 100 Mechanical Ventilator 35 06/09/17 09:28 104 06/09/17 09:16 92 17 35 06/09/17 08:29 105 112/62 06/09/17 08:00 35 06/09/17 07:56 99.3 105 16 112/62 100 Mechanical Ventilator 35 06/09/17 07:22 35 06/09/17 07:22 80 16 100 Mechanical Ventilator 35 06/09/17 07:12 102 33 Mechanical Ventilator 35 06/09/17 07:12 102 24 100 Mechanical Ventilator 35 06/09/17 07:12 103 24 35 06/09/17 05:19 103 23 35 06/09/17 04:00 35 06/09/17 03:54 97.7 98 22 136/77 100 Mechanical Ventilator 35 06/09/17 03:54 98 06/09/17 03:15 98 23 35 06/09/17 01:28 86 16 99 Mechanical Ventilator 35 06/09/17 01:28 86 16 35 06/09/17 01:28 35 06/09/17 01:20 83 21 100 Mechanical Ventilator 35 06/09/17 00:00 35 06/08/17 23:50 83 06/08/17 23:49 97.7 83 21 118/65 100 Mechanical Ventilator 35 Intake and Output 06/09/17 06/10/17 19:00 07:00 Intake Total 1820 ml 490 ml Balance 1820 ml 490 ml Intake Free Water 200 ml 50 ml IV Total 900 ml 210 ml Tube Feeding 720 ml 180 ml Other 50 ml # Voids 2 # Bowel Movements 5 1 Laboratory Tests 06/09/17 04:10: White Blood Count 10.1, Red Blood Count 2.52L, Hemoglobin 8.2L, Hematocrit 24.4L , Mean Corpuscular Volume 97, Mean Corpuscular Hemoglobin 32.7H, Mean Corpuscular Hemoglobin Concent 33.9, Red Cell Distribution Width 13.7, Platelet Count 152, Mean Platelet Volume 9.4, Neutrophils (%) (Auto) , Lymphocytes (%) ( Auto) , Monocytes (%) (Auto) , Eosinophils (%) (Auto) , Basophils (%) (Auto) , Sodium Level 139, Potassium Level 4.6, Chloride Level 109H, Carbon Dioxide Level 16L, Anion Gap 14, Blood Urea Nitrogen 13, Creatinine 0.6, Estimat Glomerular Filtration Rate , Glucose Level 159H, Calcium Level 9.0 Height (Feet): 4 Height (Inches): 10.00 Weight (Pounds): 120 General Appearance: lethargic EENT: normal ENT inspection Neck: supple Neurologic: unresponsive Skin: warm/dry Jackson Arias Jun 09, 2017 23:23
[2017-06-10] VITALS (7 sets, daily range): BP systolic 146–159; BP diastolic 78–99
[2017-06-10] MEDS: Dexamethasone 4mg/ml vial IVP SCH ×5 (00:41→23:19)
[2017-06-10] MEDS: Ciprofloxacin Opth Soln BOTH EYES SCH ×5 (00:42→23:19)
[2017-06-10 04:57] LABS: MEAN CORPUSCULAR HEMOGLOBIN 33.3 PG (27.0-31.0); MEAN CORPUSCULAR HGB CONC 34.3 G/DL (32.0-36.0); MEAN CORPUSCULAR VOLUME 97 FL (80-99); MEAN PLATELET VOLUME 9.6 FL (6.5-10.1); PLATELET COUNT 172 K/UL (150-450); RED CELL DISTRIBUTION WIDTH 13.8 % (11.6-14.8); WHITE BLOOD COUNT 14.6 K/UL (4.8-10.8)
[2017-06-10 05:27] LABS: CALCIUM 8.6 mg/dL (8.6-10.2); CARBON DIOXIDE 19 mEQ/L (20-30); CHLORIDE 110 mEQ/L (98-107); CREATININE 0.6 mg/dL (0.5-0.9); HEMOLYSIS 2; SODIUM 140 mEQ/L (135-145)
[2017-06-10 05:47] LABS: ANION GAP 11 (5-15)
[2017-06-10] MEDS: NovoLOG Insulin Flexpen SUBQ SCH ×4 (06:07→21:15)
[2017-06-10 08:30] LABS: BAND NEUTROPHILS % (MANUAL) 0 % (0-8); BASOPHILS % (MANUAL) 0 % (0-2); EOSINOPHILS % (MANUAL) 0 % (0-3); HYPOCHROMASIA 1+; LYMPHOCYTES % (MANUAL) 15 % (20-45); NEUTROPHILS % (MANUAL) 80 % (45-75); PLATELET ESTIMATE ADEQUATE; PLATELET MORPHOLOGY NORMAL; TOTAL CELLS COUNTED 100
[2017-06-10] MEDS: Docusate 100mg/10ml Liq GT SCH ×2 (08:47→17:46)
[2017-06-10] MEDS: Topiramate 100mg tab GT SCH ×2 (08:47→21:14)
[2017-06-10] MEDS: Ascorbic Acid 500mg tab ORAL SCH (08:48)
[2017-06-10] MEDS: Zinc Sulfate 220mg cap ORAL SCH (08:48)
[2017-06-10] MEDS: levETIRAcetam 500mg/5ml Liquid GT SCH ×2 (08:49→17:47)
[2017-06-10] MEDS: Artificial Tears 1.4% Op Soln BOTH EYES SCH ×2 (08:54→17:46)
[2017-06-10] MEDS: Lacosamide 100 MG TABLET ORAL SCH ×2 (08:54→21:14)
[2017-06-10] MEDS: Budesonide HHN 0.25mg/2ml ud HHN SCH ×2 (09:47→21:37)
--- NOTE | 2017-06-10 11:06 | GI Progress Note ---
Assessment/Plan Problems: (1) Elevated CEA ICD Codes: R97.0 - Elevated carcinoembryonic antigen [CEA] SNOMED: 61261600, 751923281 (2) Anemia ICD Codes: D64.9 - Anemia, unspecified SNOMED: 164829023 Qualifiers: Qualified Codes: D64.9 - Anemia, unspecified Status: stable Status Narrative Discussed with Dr. Tejada. Assessment/Plan s/p colonoscopy SUMMARY OF FINDINGS: 1. One colonic polyp removed, see above for details. 2. Internal hemorrhoids. OB stool negative RECOMMENDATIONS: GTFs per dietary, tolerating fu biopsy monitor H&H, prn transfusion >> additional OB stool ppi abx fu labs Subjective Subjective limited Objective Last 24 Hour Vital Signs Date Time Temp Pulse Resp B/P (MAP) Pulse Ox O2 Delivery O2 Flow Rate FiO2 06/10/17 10:52 84 22 35 06/10/17 09:52 89 18 100 Mechanical Ventilator 35 06/10/17 09:42 35 06/10/17 09:40 89 22 100 Mechanical Ventilator 35 06/10/17 09:22 89 22 35 06/10/17 08:48 86 159/99 06/10/17 08:00 35 06/10/17 08:00 97.7 88 23 159/99 100 Mechanical Ventilator 35 06/10/17 08:00 75 06/10/17 06:59 78 20 35 06/10/17 05:08 72 21 35 06/10/17 04:00 98.2 81 21 152/83 100 Mechanical Ventilator 35 06/10/17 04:00 35 06/10/17 04:00 86 06/10/17 03:15 89 26 35 06/10/17 00:57 90 23 35 06/10/17 00:00 35 06/10/17 00:00 35 06/10/17 00:00 94 06/10/17 00:00 97.9 93 25 154/79 100 Mechanical Ventilator 35 06/09/17 22:48 89 22 35 06/09/17 21:36 86 23 100 Mechanical Ventilator 35 06/09/17 21:27 91 24 100 Mechanical Ventilator 35 06/09/17 21:27 35 06/09/17 21:26 92 24 35 06/09/17 20:06 97.9 91 29 153/75 100 Mechanical Ventilator 35 06/09/17 20:00 35 06/09/17 20:00 84 06/09/17 19:11 84 26 35 06/09/17 16:31 74 06/09/17 16:00 97.7 84 16 131/73 100 Mechanical Ventilator 35 06/09/17 16:00 35 06/09/17 15:23 84 22 35 06/09/17 12:57 35 06/09/17 12:57 91 16 100 Mechanical Ventilator 35 06/09/17 12:48 90 16 100 Mechanical Ventilator 35 06/09/17 12:48 84 22 35 06/09/17 12:00 83 06/09/17 12:00 35 06/09/17 11:47 98.1 77 16 129/77 100 Mechanical Ventilator 35 06/09/17 11:15 88 16 35 Intake and Output 06/10/17 06/11/17 19:00 07:00 Intake Total 455 ml Balance 455 ml IV Total 225 ml Tube Feeding 180 ml Other 50 ml Laboratory Tests Test 06/10/17 03:25 White Blood Count 14.6 K/UL (4.8-10.8) H Red Blood Count 2.30 M/UL (4.20-5.40) L Hemoglobin 7.7 G/DL (12.0-16.0) L Hematocrit 22.4 % (37.0-47.0) L Mean Corpuscular Volume 97 FL (80-99) Mean Corpuscular Hemoglobin 33.3 PG (27.0-31.0) H Mean Corpuscular Hemoglobin Concent 34.3 G/DL (32.0-36.0) Red Cell Distribution Width 13.8 % (11.6-14.8) Platelet Count 172 K/UL (150-450) Mean Platelet Volume 9.6 FL (6.5-10.1) Neutrophils (%) (Auto) % (45.0-75.0) Lymphocytes (%) (Auto) % (20.0-45.0) Monocytes (%) (Auto) % (1.0-10.0) Eosinophils (%) (Auto) % (0.0-3.0) Basophils (%) (Auto) % (0.0-2.0) Differential Total Cells Counted 100 Neutrophils % (Manual) 80 % (45-75) H Lymphocytes % (Manual) 15 % (20-45) L Monocytes % (Manual) 5 % (1-10) Eosinophils % (Manual) 0 % (0-3) Basophils % (Manual) 0 % (0-2) Band Neutrophils 0 % (0-8) Platelet Estimate Adequate Platelet Morphology Normal Hypochromasia 1+ Sodium Level 140 mEQ/L (135-145) Potassium Level 4.0 mEQ/L (3.4-4.9) Chloride Level 110 mEQ/L (98-107) H Carbon Dioxide Level 19 mEQ/L (20-30) L Anion Gap 11 (5-15) Blood Urea Nitrogen 22 mg/dL (7-23) Creatinine 0.6 mg/dL (0.5-0.9) Estimat Glomerular Filtration Rate mL/min (>60) Glucose Level 139 mg/dL (74-106) H Calcium Level 8.6 mg/dL (8.6-10.2) Height (Feet): 4 Height (Inches): 10.00 Weight (Pounds): 120 General Appearance: no apparent distress Cardiovascular: normal rate Respiratory/Chest: other - mech vent Abdominal Exam: GT site - c/d/i Kalani Lockhart N.P. Jun 10, 2017 11:06
--- NOTE | 2017-06-10 11:40 | Pulmonology Progress Note ---
Assessment/Plan Problems: (1) Tracheostomy dependence (2) Chronic respiratory disease (3) Anemia (4) Elevated CEA Assessment/Plan h/h slowly decreasing respiratory treatment CT of head noted, large mass, with edema and shifting midline prbc prn oncology note appreciated I suggest comfort care and also consider removing ventilator and use morphine drip for comfort. try to arrange a family meeting Subjective ROS Limited/Unobtainable: No Constitutional: Reports: no symptoms HEENT: Repors: no symptoms Allergies: Coded Allergies: No Known Allergies (Unverified , 06/08/17) Objective Last 24 Hour Vital Signs Date Time Temp Pulse Resp B/P (MAP) Pulse Ox O2 Delivery O2 Flow Rate FiO2 06/10/17 10:52 84 22 35 06/10/17 09:52 89 18 100 Mechanical Ventilator 35 06/10/17 09:42 35 06/10/17 09:40 89 22 100 Mechanical Ventilator 35 06/10/17 09:22 89 22 35 06/10/17 08:48 86 159/99 06/10/17 08:00 35 06/10/17 08:00 97.7 88 23 159/99 100 Mechanical Ventilator 35 06/10/17 08:00 75 06/10/17 06:59 78 20 35 06/10/17 05:08 72 21 35 06/10/17 04:00 98.2 81 21 152/83 100 Mechanical Ventilator 35 06/10/17 04:00 35 06/10/17 04:00 86 06/10/17 03:15 89 26 35 06/10/17 00:57 90 23 35 06/10/17 00:00 35 06/10/17 00:00 35 06/10/17 00:00 94 06/10/17 00:00 97.9 93 25 154/79 100 Mechanical Ventilator 35 06/09/17 22:48 89 22 35 06/09/17 21:36 86 23 100 Mechanical Ventilator 35 06/09/17 21:27 91 24 100 Mechanical Ventilator 35 06/09/17 21:27 35 06/09/17 21:26 92 24 35 06/09/17 20:06 97.9 91 29 153/75 100 Mechanical Ventilator 35 06/09/17 20:00 35 06/09/17 20:00 84 06/09/17 19:11 84 26 35 9/7/17 16:31 74 06/09/17 16:00 97.7 84 16 131/73 100 Mechanical Ventilator 35 06/09/17 16:00 35 06/09/17 15:23 84 22 35 06/09/17 12:57 35 06/09/17 12:57 91 16 100 Mechanical Ventilator 35 06/09/17 12:48 90 16 100 Mechanical Ventilator 35 06/09/17 12:48 84 22 35 06/09/17 12:00 83 06/09/17 12:00 35 06/09/17 11:47 98.1 77 16 129/77 100 Mechanical Ventilator 35 Intake and Output 06/10/17 06/11/17 19:00 07:00 Intake Total 455 ml Balance 455 ml IV Total 225 ml Tube Feeding 180 ml Other 50 ml General Appearance: WD/WN HEENT: normocephalic, anicteric Respiratory/Chest: chest wall non-tender, lungs clear Breasts: no masses Cardiovascular: normal peripheral pulses, regular rhythm Abdomen: normal bowel sounds, soft, non tender Genitourinary: normal external genitalia Extremities: no clubbing Skin: no lesions Laboratory Tests 06/10/17 03:25: White Blood Count 14.6H, Red Blood Count 2.30L, Hemoglobin 7.7L, Hematocrit 22.4L, Mean Corpuscular Volume 97, Mean Corpuscular Hemoglobin 33.3H, Mean Corpuscular Hemoglobin Concent 34.3, Red Cell Distribution Width 13.8, Platelet Count 172, Mean Platelet Volume 9.6, Neutrophils (%) (Auto) , Lymphocytes (%) ( Auto) , Monocytes (%) (Auto) , Eosinophils (%) (Auto) , Basophils (%) (Auto) , Differential Total Cells Counted 100, Neutrophils % (Manual) 80H, Lymphocytes % (Manual) 15L, Monocytes % (Manual) 5, Eosinophils % (Manual) 0, Basophils % ( Manual) 0, Band Neutrophils 0, Platelet Estimate Adequate, Platelet Morphology Normal, Hypochromasia 1+, Sodium Level 140, Potassium Level 4.0, Chloride Level 110H, Carbon Dioxide Level 19L, Anion Gap 11, Blood Urea Nitrogen 22, Creatinine 0.6, Estimat Glomerular Filtration Rate , Glucose Level 139H, Calcium Level 8.6 Current Medications Medications (Trade) Dose Ordered Sig/Ludivina Route PRN Reason Start Time Stop Time Status Last Admin Dose Admin Acetaminophen (Tylenol) 650 mg Q4H PRN ORAL Mild Pain (Pain Scale 1-3) 06/03/17 17:30 07/03/17 17:29 Amlodipine Besylate (Norvasc) 5 mg DAILY GT 06/04/17 09:00 07/04/17 08:59 06/10/17 08:48 Artificial Tears (Akwa-Tears) 1 drop BID BOTH EYES 06/06/17 22:00 07/06/17 21:59 06/10/17 08:54 Ascorbic Acid (Vitamin C) 500 mg DAILY ORAL 06/04/17 09:00 07/04/17 08:59 06/10/17 08:48 Budesonide (Pulmicort) 0.25 mg Q12HRT HHN 06/04/17 10:00 07/04/17 09:59 06/10/17 09:47 Ciprofloxacin (Ciloxan Opth Soln) 1 drop Q6HR BOTH EYES 06/07/17 17:00 06/14/17 16:59 06/10/17 06:08 Clonidine HCl (Catapres) 0.1 mg Q6H PRN GT For SBP>180 06/04/17 09:00 07/04/17 08:59 Dexamethasone Sodium Phosphate (Decadron 4mg/ml vial) 4 mg Q6HR IVP 06/09/17 00:00 07/09/17 00:00 06/10/17 06:08 Dextrose (Dextrose 50%) STAT PRN IV Hypoglycemia 06/03/17 17:30 07/03/17 17:29 Docusate Sodium (Colace) 100 mg TWICE A DAY GT 06/04/17 09:30 07/04/17 09:29 06/10/17 08:47 Donepezil HCl (Aricept) 5 mg BEDTIME GT 06/04/17 21:00 07/04/17 20:59 06/09/17 20:25 Folic Acid (Folate) 1 mg DAILY GT 06/04/17 09:00 07/04/17 08:59 06/10/17 08:48 Insulin Aspart (NovoLOG) BEFORE MEALS AND HS SUBQ 06/08/17 21:00 07/08/17 20:59 06/10/17 06:07 Lacosamide (Vimpat) 200 mg Q12HR ORAL 06/04/17 11:00 07/04/17 10:59 06/10/17 08:54 Lansoprazole (Prevacid) 30 mg Q12HR GT 06/04/17 10:00 07/04/17 09:59 06/10/17 08:47 Levetiracetam (Keppra) 1,500 mg BID GT 06/04/17 09:00 07/04/17 08:59 06/10/17 08:49 Phenytoin (Dilantin) 300 mg BEDTIME ORAL 06/04/17 21:00 07/04/17 20:59 06/09/17 20:25 Polyethylene Glycol (Miralax) 17 gm BEDTIME ORAL 06/05/17 21:00 07/05/17 20:59 06/06/17 21:29 Sertraline HCl (Zoloft) 50 mg BEDTIME GT 06/04/17 21:00 07/04/17 20:59 06/09/17 20:25 Sodium Chloride 1,000 ml @ 75 mls/hr [id number] IV 06/03/17 18:30 07/03/17 18:29 06/10/17 10:39 Topiramate (Topamax) 150 mg Q12HR GT 06/04/17 09:00 07/04/17 08:59 06/10/17 08:47 Zinc Sulfate (Zinc Sulfate) 220 mg DAILY ORAL 06/04/17 09:00 07/04/17 08:59 06/10/17 08:48 BEJNY CARMEN Jun 10, 2017 11:40
--- NOTE | 2017-06-10 13:11 | General Progress Note ---
Assessment/Plan Assessment/Plan 1. 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 At this time, of care hospice given poor performance status. The patient with tracheostomy, ventilator, and bedbound, unlikely any type of chemotherapy would benefit her in this current physical status. --> recommend steroids as per neurology/neurosurgery, daughter has refused in the past but now potentially agreeable --> will be seen today by neurologist 2. Deep venous thrombosis versus pulmonary embolism. The patient is status post inferior vena cava filter. --> not a candidate for blood thinner 3. Anemia, secondary to gastrointestinal bleed. Results of colonoscopy: internal hemorrhoids --> polyp removed for biopsy, shows evidence of tubular adenoma. --> GI following 4. Elevated tumor markers. CAT scan of the abdomen was reviewed and noted to have metastatic disease to the intramammary nodes. Also, consider brain metastasis in the past, status post radiation. 5. Hyponatremia and acute kidney injury. Sodium and serum creatinine improved. 6. Anemia, secondary to chronic disease. Anemia workup reviewed. --> transfuse if hemoglobin is less than 7. 8. Gastrostomy tube feedings. Subjective Constitutional: Reports: no symptoms HEENT: Reports: no symptoms Cardiovascular: Reports: no symptoms Respiratory: Reports: no symptoms Gastrointestinal/Abdominal: Reports: no symptoms Genitourinary: Reports: no symptoms Neurologic/Psychiatric: Reports: no symptoms Endocrine: Reports: no symptoms Hematologic/Lymphatic: Reports: anemia Allergies: Coded Allergies: No Known Allergies (Unverified , 06/08/17) Subjective no signs of distress Objective Last 24 Hour Vital Signs Date Time Temp Pulse Resp B/P (MAP) Pulse Ox O2 Delivery O2 Flow Rate FiO2 06/10/17 12:00 35 06/10/17 12:00 97.2 75 25 146/87 100 Mechanical Ventilator 35 06/10/17 10:52 84 22 35 06/10/17 09:52 89 18 100 Mechanical Ventilator 35 06/10/17 09:42 35 06/10/17 09:40 89 22 100 Mechanical Ventilator 35 06/10/17 09:22 89 22 35 06/10/17 08:48 86 159/99 06/10/17 08:00 35 06/10/17 08:00 97.7 88 23 159/99 100 Mechanical Ventilator 35 06/10/17 08:00 75 06/10/17 06:59 78 20 35 06/10/17 05:08 72 21 35 06/10/17 04:00 98.2 81 21 152/83 100 Mechanical Ventilator 35 06/10/17 04:00 35 06/10/17 04:00 86 06/10/17 03:15 89 26 35 06/10/17 00:57 90 23 35 06/10/17 00:00 35 06/10/17 00:00 35 06/10/17 00:00 94 06/10/17 00:00 97.9 93 25 154/79 100 Mechanical Ventilator 35 06/09/17 22:48 89 22 35 06/09/17 21:36 86 23 100 Mechanical Ventilator 35 06/09/17 21:27 91 24 100 Mechanical Ventilator 35 06/09/17 21:27 35 06/09/17 21:26 92 24 35 06/09/17 20:06 97.9 91 29 153/75 100 Mechanical Ventilator 35 06/09/17 20:00 35 06/09/17 20:00 84 06/09/17 19:11 84 26 35 06/09/17 16:31 74 06/09/17 16:00 97.7 84 16 131/73 100 Mechanical Ventilator 35 06/09/17 16:00 35 06/09/17 15:23 84 22 35 Intake and Output 06/10/17 06/11/17 19:00 07:00 Intake Total 455 ml Balance 455 ml IV Total 225 ml Tube Feeding 180 ml Other 50 ml Laboratory Tests 06/10/17 03:25: White Blood Count 14.6H, Red Blood Count 2.30L, Hemoglobin 7.7L, Hematocrit 22.4L, Mean Corpuscular Volume 97, Mean Corpuscular Hemoglobin 33.3H, Mean Corpuscular Hemoglobin Concent 34.3, Red Cell Distribution Width 13.8, Platelet Count 172, Mean Platelet Volume 9.6, Neutrophils (%) (Auto) , Lymphocytes (%) ( Auto) , Monocytes (%) (Auto) , Eosinophils (%) (Auto) , Basophils (%) (Auto) , Differential Total Cells Counted 100, Neutrophils % (Manual) 80H, Lymphocytes % (Manual) 15L, Monocytes % (Manual) 5, Eosinophils % (Manual) 0, Basophils % ( Manual) 0, Band Neutrophils 0, Platelet Estimate Adequate, Platelet Morphology Normal, Hypochromasia 1+, Sodium Level 140, Potassium Level 4.0, Chloride Level 110H, Carbon Dioxide Level 19L, Anion Gap 11, Blood Urea Nitrogen 22, Creatinine 0.6, Estimat Glomerular Filtration Rate , Glucose Level 139H, Calcium Level 8.6 Height (Feet): 4 Height (Inches): 10.00 Weight (Pounds): 120 General Appearance: no apparent distress EENT: normal ENT inspection Neck: normal alignment Cardiovascular: normal rate, regular rhythm Respiratory/Chest: no respiratory distress Abdomen: other - gtube Extremities: normal range of motion Edema: mild edema Skin: normal pigmentation, warm/dry, no diaphoresis Jackson Arias Jun 10, 2017 13:11
--- NOTE | 2017-06-10 13:29 | Wound Care Consultation ---
Wound Assessment Wound Assessment #1: Wound Present on Admission: Yes New Wound: No Status Change of Wound: No Wound Location Body Site Modif: left Wound Location Body Site: ischial tuberosity Wound Type: pressure ulcer Orin Test: Does not Orin Pressure Ulcer Stage: III - RESOLVED Wound Thickness: Full Thickness Percent of Wound [place]/Red: 100 - scar tissue Wound Drainage Amount: None Wound Drainage Odor: None/Absent Tissue Surrounding Wound: Erythemic Wound General Appearance: Reddened, Open to air, Clean/Dry Wound Assessment #2: Wound Number: 2 Wound Present on Admission: Yes New Wound: No Status Change of Wound: No Wound Location Body Site Modif: mid Wound Location Body Site: other - sacrococcygeal Wound Type: pressure ulcer Orin Test: Does not Orin Pressure Ulcer Stage: IV/unstageable Wound Thickness: Full Thickness Wound Length: 3.0 Wound Width: 2.5 Wound Depth: 0.2 Percent of Wound [place]/Red: 100 Wound Drainage Description: Serosanguineous Wound Drainage Amount: Scant Wound Drainage Odor: None/Absent Tissue Surrounding Wound: full thickness scar tissue Wound General Appearance: Reddened, Draining Wound Comment #1 Sacrococcygeal unstageable pressure ulcer with extensive full thickness scar tissue. Noted with good progress. Wound bed 100% pink at this time. Will cont same wound care and recommendation below. #2 Left ischial tuberosity stage III pressure ulcer. Resolved!! Intact with 100 % Scar tissue. Recommendation -Sacrococcygeal unstageable pressure ulcer with extensive full thickness scar tissue. Cleanse with saline, pat dry, apply Triad cream, cover with bordered gauze daily and PRN soiled/dislodged -Keep clean and dry -Turn and reposition -Optimize nutrition -Low air loss mattress -Offload both heels -Heel protector on both heels -Assess and f/u accordingly for any changes ASHUTOSH HERNANDEZ RN Jun 10, 2017 13:29
--- NOTE | 2017-06-10 19:09 | General Progress Note ---
Assessment/Plan Problem List: (1) Acute toxic metabolic encephalopathy (2) Acute on chronic anemia (3) Hypernatremia ICD Codes: E87.0 - Hyperosmolality and hypernatremia SNOMED: 15566304 (4) VERNA (acute kidney injury) ICD Codes: N17.9 - Acute kidney failure, unspecified SNOMED: 42927339 (5) Tracheostomy dependence ICD Codes: Z93.0 - Tracheostomy status SNOMED: 728732805, 944032005 (6) Seizure ICD Codes: R56.9 - Unspecified convulsions SNOMED: 00748962 (7) HTN (hypertension) ICD Codes: I10 - Essential (primary) hypertension SNOMED: 51309170 (8) CVA (cerebral vascular accident) ICD Codes: I63.9 - Cerebral infarction, unspecified SNOMED: 642479778 (9) Functional quadriplegia ICD Codes: R53.2 - Functional quadriplegia SNOMED: 274840867684329 (10) Ovarian cancer ICD Codes: C56.9 - Malignant neoplasm of unspecified ovary SNOMED: 602410133 (11) Brain metastases ICD Codes: C79.31 - Secondary malignant neoplasm of brain SNOMED: 10230302 (12) PUD (peptic ulcer disease) ICD Codes: K27.9 - Peptic ulcer, site unspecified, unspecified as acute or chronic, without hemorrhage or perforation SNOMED: 40276443 (13) Leukocytosis ICD Codes: D72.829 - Elevated white blood cell count, unspecified SNOMED: 979529776, 436493496 Qualifiers: Qualified Codes: D72.829 - Elevated white blood cell count, unspecified (14) Left ischial tuberosity stage III pressure ulcer (15) Sacrococcygeal unstageable pressure ulcer with extensive full thickness scar tissue (16) Hypokalemia ICD Codes: E87.6 - Hypokalemia SNOMED: 24511533 Status: unchanged Assessment/Plan CT head findings reviewed. Case discussed extensively with critical care MD and oncology at [facility] [place] [facility] who recommends comfort measures. Pt's daughter requesting further mgmt. Case discussed w/ neurosurgery and neuroICU at [facility] who state that pt is not a quinones rgical candidate. Pt's daughter requesting transfer to care of neurosurgeon Dr. Dias--spoke to his [employer] and they defer to pt's original neurosurgeon as Dr. Dias did not operate on pt. Pt's daughter has now decided to take pt home but she is not ready for hospice. GI consulted s/p 1U pRBC transfusion 06/04 Transfuse for hgb<[address] a/p reviewed s/p colonoscopy on 06/07/17 which showed colon polyp s/p removal Monitor for signs of bleeding Pulm consulted Cont vent IVFs for hypernatremia Hold home lasix given VERNA s/p levaquin in ED on 06/03 Will hold abx for now given no clear infectious source ID consulted given concern for osteo on CT F/u cultures Cont other home meds including AEDs Pain control, supportive care, bowel regimen Cont tube feeds via PEG Cont wound care for pressure ulcers Daughter declining hospice after multiple discussions D/c plan for Mon DVT Prophylaxis: SCD Code Status: Full Hospital Classification Declaration: Based on this initial evaluation, and depending on the patient's clinical course, I anticipate that this patient will require hospitalization for 1-2 days for AMS, anemia, hypernatremia, VERNA and close respiratory/hemodynamic monitoring. Disposition: Once the patient is stable to leave the hospital, I anticipate the patient will likely be discharged to the following environment: home with HH + CG vs SNF Discussed with patient/family, nursing staff, SW/CM, GI, pulm, oncology regarding clinical status, treatment course, and disposition planning. Time of note may not reflect time of encounter. Subjective Date patient seen: Jun 10, 2017 Time patient seen: 14:00 ROS Limited/Unobtainable: Yes Allergies: Coded Allergies: No Known Allergies (Unverified , 06/08/17) Subjective CT head done w/ concern for R parietal lobe mass w/ midline shift and surrounding cerebral edema. Concern for impending uncal herniation. D/w neurosurgy at [facility] and pt's past neurosurgeon. Pt not a surgical candidate. On IV decadron Pt cont to be poorly responsive to voice and pain, non-verbal at baseline Per daughter, pt slightly improved today. Opened her eyes D/c held as pt's daughter unable to set up RT to be present when pt arrives home Unable to obtain ROS given AMS Objective Last 24 Hour Vital Signs Date Time Temp Pulse Resp B/P (MAP) Pulse Ox O2 Delivery O2 Flow Rate FiO2 06/10/17 17:23 77 20 35 06/10/17 16:00 35 06/10/17 16:00 70 06/10/17 16:00 98.1 77 23 152/89 100 Mechanical Ventilator 35 06/10/17 15:22 72 24 35 06/10/17 13:02 80 22 35 06/10/17 12:00 75 06/10/17 12:00 35 06/10/17 12:00 97.2 75 25 146/87 100 Mechanical Ventilator 35 06/10/17 10:52 84 22 35 06/10/17 09:52 89 18 100 Mechanical Ventilator 35 06/10/17 09:42 35 06/10/17 09:40 89 22 100 Mechanical Ventilator 35 06/10/17 09:22 89 22 35 06/10/17 08:48 86 159/99 06/10/17 08:00 35 06/10/17 08:00 97.7 88 23 159/99 100 Mechanical Ventilator 35 06/10/17 08:00 75 06/10/17 06:59 78 20 35 06/10/17 05:08 72 21 35 06/10/17 04:00 98.2 81 21 152/83 100 Mechanical Ventilator 35 06/10/17 04:00 35 06/10/17 04:00 86 06/10/17 03:15 89 26 35 06/10/17 00:57 90 23 35 06/10/17 00:00 35 06/10/17 00:00 35 06/10/17 00:00 94 06/10/17 00:00 97.9 93 25 154/79 100 Mechanical Ventilator 35 06/09/17 22:48 89 22 35 06/09/17 21:36 86 23 100 Mechanical Ventilator 35 06/09/17 21:27 91 24 100 Mechanical Ventilator 35 06/09/17 21:27 35 06/09/17 21:26 92 24 35 06/09/17 20:06 97.9 91 29 153/75 100 Mechanical Ventilator 35 06/09/17 20:00 35 06/09/17 20:00 84 06/09/17 19:11 84 26 35 Intake and Output 06/10/17 06/11/17 19:00 07:00 Intake Total 1718.75 ml Output Total 1050 ml Balance 668.75 ml Intake Free Water 50 ml IV Total 898.75 ml Tube Feeding 720 ml Other 50 ml Output Urine Total 1050 ml Laboratory Tests 06/10/17 03:25: White Blood Count 14.6H, Red Blood Count 2.30L, Hemoglobin 7.7L, Hematocrit 22.4L, Mean Corpuscular Volume 97, Mean Corpuscular Hemoglobin 33.3H, Mean Corpuscular Hemoglobin Concent 34.3, Red Cell Distribution Width 13.8, Platelet Count 172, Mean Platelet Volume 9.6, Neutrophils (%) (Auto) , Lymphocytes (%) ( Auto) , Monocytes (%) (Auto) , Eosinophils (%) (Auto) , Basophils (%) (Auto) , Differential Total Cells Counted 100, Neutrophils % (Manual) 80H, Lymphocytes % (Manual) 15L, Monocytes % (Manual) 5, Eosinophils % (Manual) 0, Basophils % ( Manual) 0, Band Neutrophils 0, Platelet Estimate Adequate, Platelet Morphology Normal, Hypochromasia 1+, Sodium Level 140, Potassium Level 4.0, Chloride Level 110H, Carbon Dioxide Level 19L, Anion Gap 11, Blood Urea Nitrogen 22, Creatinine 0.6, Estimat Glomerular Filtration Rate , Glucose Level 139H, Calcium Level 8.6 Height (Feet): 4 Height (Inches): 10.00 Weight (Pounds): 120 Objective General: unresponsive, non-verbal at baseline Head: normocephalic, without obvious abnormality, atraumatic Eyes: conjunctivae/corneas clear. PERRL, EOM's intact Throat: lips, mucosa, and tongue normal. MMM Neck: supple, symmetrical, trachea midline, and no JVD, +trach Lungs: clear to auscultation bilaterally Heart: regular rate and rhythm, S1, S2 normal, no murmur, click, rub or gallop Abdomen: soft, non-tender, non-distended, bowel sounds normal; +G tube c/d/i Extremities: extremities normal, atraumatic, no cyanosis or edema Pulses: 2+ and symmetric Skin: skin color, texture, turgor normal; no rashes or lesions Neurologic: grossly normal, no focal deficits Niki Rodriguez M.D. Jun 10, 2017 19:09
[2017-06-10] MEDS: Miralax 17gm pkt ORAL SCH (21:12)
[2017-06-10] MEDS: Sertraline 50mg tab GT SCH (21:13)
[2017-06-10] MEDS: Phenytoin 100mg cap ORAL SCH (21:13)
[2017-06-10] MEDS: Donepezil 5mg Tab GT SCH (21:13)
[2017-06-11 04:00] VITALS: BP 139/68
[2017-06-11] MEDS: Dexamethasone 4mg/ml vial IVP SCH ×3 (05:12→17:46)
[2017-06-11] MEDS: Ciprofloxacin Opth Soln BOTH EYES SCH ×3 (05:12→17:46)
[2017-06-11] MEDS: NovoLOG Insulin Flexpen SUBQ SCH ×3 (05:41→17:48)
[2017-06-11 05:48] LABS: MEAN CORPUSCULAR HEMOGLOBIN 34.3 PG (27.0-31.0); MEAN CORPUSCULAR HGB CONC 35.4 G/DL (32.0-36.0); MEAN CORPUSCULAR VOLUME 97 FL (80-99); MEAN PLATELET VOLUME 9.2 FL (6.5-10.1); PLATELET COUNT 191 K/UL (150-450); RED BLOOD COUNT 2.54 M/UL (4.20-5.40); RED CELL DISTRIBUTION WIDTH 13.8 % (11.6-14.8); WHITE BLOOD COUNT 19.1 K/UL (4.8-10.8)
[2017-06-11 06:02] LABS: ANION GAP 14 (5-15); CARBON DIOXIDE 20 mEQ/L (20-30); CHLORIDE 107 mEQ/L (98-107); CREATININE 0.6 mg/dL (0.5-0.9); HEMOLYSIS 6; POTASSIUM 3.7 mEQ/L (3.4-4.9); SODIUM 141 mEQ/L (135-145)
[2017-06-11 07:39] VITALS: BP 151/74
[2017-06-11 07:44] LABS: BAND NEUTROPHILS % (MANUAL) 1 % (0-8); BASOPHILS % (MANUAL) 0 % (0-2); EOSINOPHILS % (MANUAL) 1 % (0-3); LYMPHOCYTES % (MANUAL) 17 % (20-45); MACROCYTES 1+; NEUTROPHILS % (MANUAL) 76 % (45-75); PLATELET ESTIMATE ADEQUATE; PLATELET MORPHOLOGY NORMAL; TOTAL CELLS COUNTED 100
[2017-06-11] MEDS: Topiramate 100mg tab GT SCH ×2 (08:42→20:37)
[2017-06-11] MEDS: Docusate 100mg/10ml Liq GT SCH ×2 (08:42→17:46)
[2017-06-11] MEDS: levETIRAcetam 500mg/5ml Liquid GT SCH ×2 (08:42→17:46)
[2017-06-11] MEDS: Lacosamide 100 MG TABLET ORAL SCH ×2 (08:42→20:38)
[2017-06-11] MEDS: Zinc Sulfate 220mg cap ORAL SCH (08:42)
[2017-06-11] MEDS: Artificial Tears 1.4% Op Soln BOTH EYES SCH ×2 (08:43→17:45)
[2017-06-11] MEDS: Ascorbic Acid 500mg tab ORAL SCH (08:43)
[2017-06-11] MEDS: Budesonide HHN 0.25mg/2ml ud HHN SCH ×2 (11:16→20:44)
--- NOTE | 2017-06-11 11:47 | Pulmonology Progress Note ---
Assessment/Plan Assessment/Plan ASSESSMENT acute toxic metabolic encephalopathy VDRF/trach acute anemia, requiring blood transfusion anemia of chronic disease r/o GI bleeding s/p colonoscopy elevated cancer tumor markers ovarian Ca with brain mets HTN seizure disorder acute kidney injury -resolved ( likely due to dehydration) hypernatremia dehydration HTN hx of CVA Functional quadriplegia Leukocytosis -resolved sacrococcyx decub, POA , un-stageable; Left ischial decub st3 POA PLAN OF CARE HASMUKH status IVF vent support, trach care baseline ABG stable on current settings, keep as is and titrate settings as needed CXR with R pleural effusion vs pleural thickening fup with CXR s/p blood transfusion, anemia w/up c/w with anemia of chronic disease , elevated ferritin monitor HH and transfuse prn, goal to keep Hgb above 7.5 stool OB negative all tumor markers elevated except CA 19-9 s/p colonoscopy with findings of internal hemorrhoids, 1 colon polyp, s/p biopsy, biopsy revealed tubular adenoma, no high grade dysplasia CT brain - approximately 4.7 x 4.6 x 5 cm mass in the right parietal lobe with extensive vasogenic edema of both hemispheres.. Resultant extensive mass effect. Near-complete nonvisualization of the basilar cisterns is worrisome for impending uncal herniation. There is 2 cm of [id number] midline shift. 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 Overlying craniotomy defect on steroids leukocytosis may be reactive due to steroids, no fever PPI GI follows SCD for mechanical prophylaxis of DVt IVF monitor Na, hyper Na was likely due to dehydration Na and K stable off Lasix given VERNA off abx, no clinical evidence of infection BP management with CCB and BB, optimize as needed seizure precautions continue multiple regimen of antiepileptic Venous Duplex BLE negative for acute DVt CT A/P -No evidence of acute abdominal or pelvic process Evidence of sacral decubitus changes. Evidence of osseous destructive change at the sacrococcygeal junction and coccyx concerning for osteomyelitis. w/up for possible osteo- as per PMD discretion wound care as per wound nurse recommendations symptomatic management: pain control, bowel regimen strict aspiration precautions, GT feeding, monitor tolerance consider comfort measures, terminal extubation and Morphine gtt case discussed and evaluated by supervising physician Subjective Allergies: Coded Allergies: No Known Allergies (Unverified , 06/08/17) Subjective leukocytosis this am, afebrile no signs of respiratory distress on current settings Objective Last 24 Hour Vital Signs Date Time Temp Pulse Resp B/P (MAP) Pulse Ox O2 Delivery O2 Flow Rate FiO2 06/11/17 11:17 81 23 35 06/11/17 11:12 35 06/11/17 11:11 81 23 100 Mechanical Ventilator 35 06/11/17 08:46 81 23 35 06/11/17 08:43 78 151/74 06/11/17 08:00 35 06/11/17 07:48 80 06/11/17 07:39 97.2 78 25 151/74 100 Mechanical Ventilator 35 06/11/17 07:05 77 22 35 06/11/17 05:07 72 28 35 06/11/17 04:00 85 06/11/17 04:00 35 06/11/17 04:00 97.9 72 18 139/68 100 Mechanical Ventilator 35 06/11/17 03:06 75 20 35 06/11/17 01:11 75 20 35 06/11/17 00:00 35 06/11/17 00:00 73 06/10/17 23:45 97.5 74 20 149/78 100 Mechanical Ventilator 35 06/10/17 23:24 81 20 35 06/10/17 21:45 86 20 100 Mechanical Ventilator 35 06/10/17 21:45 35 06/10/17 21:37 80 24 96 Mechanical Ventilator 35 06/10/17 21:10 82 25 35 06/10/17 20:00 70 06/10/17 20:00 35 06/10/17 20:00 35 06/10/17 20:00 97.0 73 17 154/79 100 Mechanical Ventilator 35 06/10/17 19:10 78 24 35 06/10/17 17:23 77 20 35 06/10/17 16:00 35 06/10/17 16:00 70 06/10/17 16:00 98.1 77 23 152/89 100 Mechanical Ventilator 35 06/10/17 15:22 72 24 35 06/10/17 13:02 80 22 35 06/10/17 12:00 75 06/10/17 12:00 35 06/10/17 12:00 97.2 75 25 146/87 100 Mechanical Ventilator 35 Intake and Output 06/11/17 06/12/17 19:00 07:00 Intake Total 670 ml Output Total 309 ml Balance 361 ml Intake Free Water 50 ml IV Total 300 ml Tube Feeding 240 ml Other 80 ml Output Urine Total 309 ml Objective General Appearance: no acute distress, bedridden vent dependent AA female in NAD , SIMV 450-35%-16 HEENT: status post trach with Portex #7, secretions small, yellow, thin Respiratory/Chest: lungs clear, no respiratory distress, no accessory muscle use Cardiovascular: normal peripheral pulses, normal rate, regular rhythm Abdomen: normal bowel sounds, soft, non tender, G tube Genitourinary: sacrococcyx and L ischial decub Extremities: other - SCD on Neurologic/Psychiatric: bedridden , L side hemiparesis , not responsive, w/ draws to tactile stimuli Musculoskeletal: atrophy of BLE Laboratory Tests 06/11/17 04:10: White Blood Count 19.1H, Red Blood Count 2.54L, Hemoglobin 8.7L, Hematocrit 24.6L, Mean Corpuscular Volume 97, Mean Corpuscular Hemoglobin 34.3H, Mean Corpuscular Hemoglobin Concent 35.4, Red Cell Distribution Width 13.8, Platelet Count 191, Mean Platelet Volume 9.2, Neutrophils (%) (Auto) , Lymphocytes (%) ( Auto) , Monocytes (%) (Auto) , Eosinophils (%) (Auto) , Basophils (%) (Auto) , Differential Total Cells Counted 100, Neutrophils % (Manual) 76H, Lymphocytes % (Manual) 17L, Monocytes % (Manual) 5, Eosinophils % (Manual) 1, Basophils % ( Manual) 0, Band Neutrophils 1, Platelet Estimate Adequate, Platelet Morphology Normal, Macrocytosis 1+, Sodium Level 141, Potassium Level 3.7, Chloride Level 107, Carbon Dioxide Level 20, Anion Gap 14, Blood Urea Nitrogen 24H, Creatinine 0.6, Estimat Glomerular Filtration Rate , Glucose Level 137H, Calcium Level 9.0 Current Medications Medications (Trade) Dose Ordered Sig/Ludivina Route PRN Reason Start Time Stop Time Status Last Admin Dose Admin Acetaminophen (Tylenol) 650 mg Q4H PRN ORAL Mild Pain (Pain Scale 1-3) 06/03/17 17:30 07/03/17 17:29 Amlodipine Besylate (Norvasc) 5 mg DAILY GT 06/04/17 09:00 07/04/17 08:59 06/11/17 08:43 Artificial Tears (Akwa-Tears) 1 drop BID BOTH EYES 06/06/17 22:00 07/06/17 21:59 06/11/17 08:43 Ascorbic Acid (Vitamin C) 500 mg DAILY ORAL 06/04/17 09:00 07/04/17 08:59 06/11/17 08:43 Budesonide (Pulmicort) 0.25 mg Q12HRT HHN 06/04/17 10:00 07/04/17 09:59 06/11/17 11:16 Ciprofloxacin (Ciloxan Opth Soln) 1 drop Q6HR BOTH EYES 06/07/17 17:00 06/14/17 16:59 06/11/17 05:12 Clonidine HCl (Catapres) 0.1 mg Q6H PRN GT For SBP>180 06/04/17 09:00 07/04/17 08:59 Dexamethasone Sodium Phosphate (Decadron 4mg/ml vial) 4 mg Q6HR IVP 06/09/17 00:00 07/09/17 00:00 06/11/17 05:12 Dextrose (Dextrose 50%) STAT PRN IV Hypoglycemia 06/03/17 17:30 07/03/17 17:29 Docusate Sodium (Colace) 100 mg TWICE A DAY GT 06/04/17 09:30 07/04/17 09:29 06/11/17 08:42 Donepezil HCl (Aricept) 5 mg BEDTIME GT 06/04/17 21:00 07/04/17 20:59 06/10/17 21:13 Folic Acid (Folate) 1 mg DAILY GT 06/04/17 09:00 07/04/17 08:59 06/11/17 08:42 Insulin Aspart (NovoLOG) EVERY 6 HOURS SUBQ 06/11/17 12:00 07/08/17 20:59 Lacosamide (Vimpat) 200 mg Q12HR ORAL 06/04/17 11:00 07/04/17 10:59 06/11/17 08:42 Lansoprazole (Prevacid) 30 mg Q12HR GT 06/04/17 10:00 07/04/17 09:59 06/11/17 08:43 Levetiracetam (Keppra) 1,500 mg BID GT 06/04/17 09:00 07/04/17 08:59 06/11/17 08:42 Phenytoin (Dilantin) 300 mg BEDTIME ORAL 06/04/17 21:00 07/04/17 20:59 06/10/17 21:13 Polyethylene Glycol (Miralax) 17 gm BEDTIME ORAL 06/05/17 21:00 07/05/17 20:59 06/10/17 21:12 Sertraline HCl (Zoloft) 50 mg BEDTIME GT 06/04/17 21:00 07/04/17 20:59 06/10/17 21:13 Sodium Chloride 1,000 ml @ 75 mls/hr [id number] IV 06/03/17 18:30 07/03/17 18:29 06/10/17 23:19 Topiramate (Topamax) 150 mg Q12HR GT 06/04/17 09:00 07/04/17 08:59 06/11/17 08:42 Zinc Sulfate (Zinc Sulfate) 220 mg DAILY ORAL 06/04/17 09:00 07/04/17 08:59 06/11/17 08:42 Ly Cohn NP ([facility]anchte[facility]) Jun 11, 2017 11:47
[2017-06-11 11:51] VITALS: BP 143/86
--- NOTE | 2017-06-11 15:35 | Infectious Diseases Prog Note ---
Assessment/Plan Assessment/Plan A) 1) ? 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 , check chest x-ray 2) Favor local wound care and observation for now with regards to ? chronic osteo and superficial wounds. I had discussion with Dr. Prince and daughter and I think risks outweigh benefits for giving 6 weeks iv abx. Please see consult dictation. 3) continue treatment per Dr. Prince and consultants 4) wound care per protocol 5) orders entered and noted Subjective Constitutional: Denies: fever HEENT: Reports: other - + trach Respiratory: Reports: shortness of breath, other - + vent Cardiovascular: Reports: other - no pressors Gastrointestinal/Abdominal: Denies: nausea, vomiting, diarrhea Genitourinary: Reports: other - + hall Neurologic: Denies: headache Psychiatric: Denies: depression Skin: Reports: other - wounds covered , Denies: rash Hematologic: Denies: bleeding Musculoskeletal: Reports: no symptoms Allergies: Coded Allergies: No Known Allergies (Unverified , 06/08/17) Objective Vital Signs Last 24 Hour Vital Signs Date Time Temp Pulse Resp B/P (MAP) Pulse Ox O2 Delivery O2 Flow Rate FiO2 06/11/17 14:45 78 21 35 06/11/17 12:53 79 23 35 06/11/17 12:08 73 06/11/17 12:00 35 06/11/17 11:51 97.2 75 18 143/86 100 Mechanical Ventilator 35 06/11/17 11:21 76 22 100 Mechanical Ventilator 35 06/11/17 11:17 81 23 35 06/11/17 11:12 35 06/11/17 11:11 81 23 100 Mechanical Ventilator 35 06/11/17 08:46 81 23 35 06/11/17 08:43 78 151/74 06/11/17 08:00 35 06/11/17 07:48 80 06/11/17 07:39 97.2 78 25 151/74 100 Mechanical Ventilator 35 06/11/17 07:05 77 22 35 06/11/17 05:07 72 28 35 06/11/17 04:00 85 06/11/17 04:00 35 06/11/17 04:00 97.9 72 18 139/68 100 Mechanical Ventilator 35 06/11/17 03:06 75 20 35 06/11/17 01:11 75 20 35 06/11/17 00:00 35 06/11/17 00:00 73 06/10/17 23:45 97.5 74 20 149/78 100 Mechanical Ventilator 35 06/10/17 23:24 81 20 35 06/10/17 21:45 86 20 100 Mechanical Ventilator 35 06/10/17 21:45 35 06/10/17 21:37 80 24 96 Mechanical Ventilator 35 06/10/17 21:10 82 25 35 06/10/17 20:00 70 06/10/17 20:00 35 06/10/17 20:00 35 06/10/17 20:00 97.0 73 17 154/79 100 Mechanical Ventilator 35 06/10/17 19:10 78 24 35 06/10/17 17:23 77 20 35 06/10/17 16:00 35 06/10/17 16:00 70 06/10/17 16:00 98.1 77 23 152/89 100 Mechanical Ventilator 35 Height (Feet): 4 Height (Inches): 10.00 Weight (Pounds): 120 General Appearance: no acute distress HEENT: normocephalic, atraumatic, anicteric, no JVD, status post trach Respiratory/Chest: lungs clear, normal breath sounds, no respiratory distress, no accessory muscle use, decreased breath sounds Cardiovascular: normal rate, regular rhythm, no gallop/murmur, no JVD Abdomen: normal bowel sounds, soft, non tender, no organomegaly, non distended Genitourinary: other - + hall - urine fairly clear Extremities: no cyanosis Skin: no rash, other - wounds covered Neurologic/Psychiatric: other - generalized weakness on vent, lethargic Lymphatic: no neck adenopathy Musculoskeletal: no effusion Objective CT scan abdomen and pelvis: Impression: No evidence of acute abdominal or pelvic process Evidence of sacral decubitus changes. Evidence of osseous destructive change at the sacrococcygeal junction and coccyx concerning for osteomyelitis. Atelectasis of much or perhaps all of the right lower lobe lung. Minimal atelectatic changes are seen at the left lung base Broad-based ventral hernia, containing a few loops of small bowel as well as a knuckle of the transverse colon. No evidence of obstruction or strangulation related to such Inferior vena cava filter in place, no evident complication. Note that this appears to be a temporary filter. Consideration should be given to retrieval if no longer indicated, or replacement with a permanent filter if long-term inferior vena cava filtration is indicated Numerous bilateral breast/chest wall nodules. Suspect on the basis of intramammary nodes. 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 Resultant extensive mass effect. Near-complete nonvisualization of the basilar cisterns is worrisome for impending uncal herniation. There is 2 cm of [id number] midline shift. 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 Overlying craniotomy defect. Correlate with surgical history as regards histology. No acute hemorrhage Microbiology Date/Time Source Procedure Growth Status 06/03/17 15:35 Blood Blood Culture - Final NO GROWTH AFTER 5 DAYS Complete 06/03/17 17:15 Nasal Nares MRSA Culture - Final NO METHICILLIN RESISTANT STAPH AUREUS... Complete 06/03/17 17:15 Rectum VRE Culture - Final Enterococcus Faecalis - Vre Complete Laboratory Tests Test 06/11/17 04:10 White Blood Count 19.1 K/UL (4.8-10.8) H Red Blood Count 2.54 M/UL (4.20-5.40) L Hemoglobin 8.7 G/DL (12.0-16.0) L Hematocrit 24.6 % (37.0-47.0) L Mean Corpuscular Volume 97 FL (80-99) Mean Corpuscular Hemoglobin 34.3 PG (27.0-31.0) H Mean Corpuscular Hemoglobin Concent 35.4 G/DL (32.0-36.0) Red Cell Distribution Width 13.8 % (11.6-14.8) Platelet Count 191 K/UL (150-450) Mean Platelet Volume 9.2 FL (6.5-10.1) Neutrophils (%) (Auto) % (45.0-75.0) Lymphocytes (%) (Auto) % (20.0-45.0) Monocytes (%) (Auto) % (1.0-10.0) Eosinophils (%) (Auto) % (0.0-3.0) Basophils (%) (Auto) % (0.0-2.0) Differential Total Cells Counted 100 Neutrophils % (Manual) 76 % (45-75) H Lymphocytes % (Manual) 17 % (20-45) L Monocytes % (Manual) 5 % (1-10) Eosinophils % (Manual) 1 % (0-3) Basophils % (Manual) 0 % (0-2) Band Neutrophils 1 % (0-8) Platelet Estimate Adequate Platelet Morphology Normal Macrocytosis 1+ Sodium Level 141 mEQ/L (135-145) Potassium Level 3.7 mEQ/L (3.4-4.9) Chloride Level 107 mEQ/L (98-107) Carbon Dioxide Level 20 mEQ/L (20-30) Anion Gap 14 (5-15) Blood Urea Nitrogen 24 mg/dL (7-23) H Creatinine 0.6 mg/dL (0.5-0.9) Estimat Glomerular Filtration Rate mL/min (>60) Glucose Level 137 mg/dL (74-106) H Calcium Level 9.0 mg/dL (8.6-10.2) Current Medications Medications (Trade) Dose Ordered Sig/Ludivina Route PRN Reason Start Time Stop Time Status Last Admin Dose Admin Acetaminophen (Tylenol) 650 mg Q4H PRN ORAL Mild Pain (Pain Scale 1-3) 06/03/17 17:30 07/03/17 17:29 Amlodipine Besylate (Norvasc) 5 mg DAILY GT 06/04/17 09:00 07/04/17 08:59 06/11/17 08:43 Artificial Tears (Akwa-Tears) 1 drop BID BOTH EYES 06/06/17 22:00 07/06/17 21:59 06/11/17 08:43 Ascorbic Acid (Vitamin C) 500 mg DAILY ORAL 06/04/17 09:00 07/04/17 08:59 06/11/17 08:43 Budesonide (Pulmicort) 0.25 mg Q12HRT HHN 06/04/17 10:00 07/04/17 09:59 06/11/17 11:16 Ciprofloxacin (Ciloxan Opth Soln) 1 drop Q6HR BOTH EYES 06/07/17 17:00 06/14/17 16:59 06/11/17 11:52 Clonidine HCl (Catapres) 0.1 mg Q6H PRN GT For SBP>180 06/04/17 09:00 07/04/17 08:59 Dexamethasone Sodium Phosphate (Decadron 4mg/ml vial) 4 mg Q6HR IVP 06/09/17 00:00 07/09/17 00:00 06/11/17 11:51 Dextrose (Dextrose 50%) STAT PRN IV Hypoglycemia 06/03/17 17:30 07/03/17 17:29 Docusate Sodium (Colace) 100 mg TWICE A DAY GT 06/04/17 09:30 07/04/17 09:29 06/11/17 08:42 Donepezil HCl (Aricept) 5 mg BEDTIME GT 06/04/17 21:00 07/04/17 20:59 06/10/17 21:13 Folic Acid (Folate) 1 mg DAILY GT 06/04/17 09:00 07/04/17 08:59 06/11/17 08:42 Insulin Aspart (NovoLOG) EVERY 6 HOURS SUBQ 06/11/17 12:00 07/08/17 20:59 06/11/17 12:57 Lacosamide (Vimpat) 200 mg Q12HR ORAL 06/04/17 11:00 07/04/17 10:59 06/11/17 08:42 Lansoprazole (Prevacid) 30 mg Q12HR GT 06/04/17 10:00 07/04/17 09:59 06/11/17 08:43 Levetiracetam (Keppra) 1,500 mg BID GT 06/04/17 09:00 07/04/17 08:59 06/11/17 08:42 Phenytoin (Dilantin) 300 mg BEDTIME ORAL 06/04/17 21:00 07/04/17 20:59 06/10/17 21:13 Polyethylene Glycol (Miralax) 17 gm BEDTIME ORAL 06/05/17 21:00 07/05/17 20:59 06/10/17 21:12 Sertraline HCl (Zoloft) 50 mg BEDTIME GT 06/04/17 21:00 07/04/17 20:59 06/10/17 21:13 Sodium Chloride 1,000 ml @ 75 mls/hr [id number] IV 06/03/17 18:30 07/03/17 18:29 06/11/17 12:57 Topiramate (Topamax) 150 mg Q12HR GT 06/04/17 09:00 07/04/17 08:59 06/11/17 08:42 Zinc Sulfate (Zinc Sulfate) 220 mg DAILY ORAL 06/04/17 09:00 07/04/17 08:59 06/11/17 08:42 BALWINDER CASTRO Jun 11, 2017 15:35
[2017-06-11 16:22] VITALS: BP 155/89
--- NOTE | 2017-06-11 17:10 | General Progress Note ---
Assessment/Plan Assessment/Plan Problem List: (1) Acute toxic metabolic encephalopathy (2) Acute on chronic anemia (3) Hypernatremia ICD Codes: E87.0 - Hyperosmolality and hypernatremia SNOMED: 42542433 (4) VERNA (acute kidney injury) ICD Codes: N17.9 - Acute kidney failure, unspecified SNOMED: 16418733 (5) Tracheostomy dependence ICD Codes: Z93.0 - Tracheostomy status SNOMED: 439157149, 253803082 (6) Seizure ICD Codes: R56.9 - Unspecified convulsions SNOMED: 62142759 (7) HTN (hypertension) ICD Codes: I10 - Essential (primary) hypertension SNOMED: 85040073 (8) CVA (cerebral vascular accident) ICD Codes: I63.9 - Cerebral infarction, unspecified SNOMED: 316428885 (9) Functional quadriplegia ICD Codes: R53.2 - Functional quadriplegia SNOMED: 112717779230747 (10) Ovarian cancer ICD Codes: C56.9 - Malignant neoplasm of unspecified ovary SNOMED: 378316243 (11) Brain metastases ICD Codes: C79.31 - Secondary malignant neoplasm of brain SNOMED: 26822915 (12) PUD (peptic ulcer disease) ICD Codes: K27.9 - Peptic ulcer, site unspecified, unspecified as acute or chronic, without hemorrhage or perforation SNOMED: 50315525 (13) Leukocytosis ICD Codes: D72.829 - Elevated white blood cell count, unspecified SNOMED: 420425209, 922057400 suspect due to steroids (14) Left ischial tuberosity stage III pressure ulcer (15) Sacrococcygeal unstageable pressure ulcer with extensive full thickness scar tissue (16) Hypokalemia ICD Codes: E87.6 - Hypokalemia SNOMED: 40769089 Status: unchanged Assessment/Plan Per Dr curtis "CT head findings reviewed. Case discussed extensively with critical care MD and oncology at [facility] who recommends comfort measures. Pt's daughter requesting further mgmt. Case discussed w/ neurosurgery and neuroICU at [facility] who state that pt is not a quinones rgical candidate. Pt's daughter requesting transfer to care of neurosurgeon Dr. Dias--spoke to his [employer] and they defer to pt's original neurosurgeon as Dr. Dias did not operate on pt. Pt's daughter has now decided to take pt home but she is not ready for hospice." Awaiting dispo home w/ HH on steroids trend chem, cbc Appreciate GI recs s/p 1U pRBC transfusion 06/04 Transfuse for hgb<[address] a/p reviewed s/p colonoscopy on 06/07/17 which showed colon polyp s/p removal Monitor for signs of bleeding Appreciate Pulm recs Cont vent IVFs for hypernatremia s/p levaquin in ED on 06/03 Will hold abx for now given no clear infectious source ID consulted given concern for osteo on CT, appreciate recs F/u cultures Cont other home meds including AEDs Pain control, supportive care, bowel regimen Cont tube feeds via PEG Cont wound care for pressure ulcers Daughter declining hospice after multiple discussions D/c plan for Mon DVT Prophylaxis: SCD Code Status: Full Hospital Classification Declaration: Based on this initial evaluation, and depending on the patient's clinical course, I anticipate that this patient will require hospitalization for 1-2 days for AMS, anemia, hypernatremia, VERNA and close respiratory/hemodynamic monitoring. Disposition: Once the patient is stable to leave the hospital, I anticipate the patient will likely be discharged to the following environment: home with HH + CG vs SNF Discussed with patient/family, nursing staff, SW/CM, GI, pulm, oncology regarding clinical status, treatment course, and disposition planning. Time of note may not reflect time of encounter. Subjective Date patient seen: Jun 11, 2017 ROS Limited/Unobtainable: Yes Allergies: Coded Allergies: No Known Allergies (Unverified , 06/08/17) Subjective no acute events afebrile mildly hypertensive awaiting dispo Objective Last 24 Hour Vital Signs Date Time Temp Pulse Resp B/P (MAP) Pulse Ox O2 Delivery O2 Flow Rate FiO2 06/11/17 16:37 90 20 35 06/11/17 16:22 98.0 91 21 155/89 100 Mechanical Ventilator 35 06/11/17 15:36 74 06/11/17 14:45 78 21 35 06/11/17 12:53 79 23 35 06/11/17 12:08 73 06/11/17 12:00 35 06/11/17 11:51 97.2 75 18 143/86 100 Mechanical Ventilator 35 06/11/17 11:21 76 22 100 Mechanical Ventilator 35 06/11/17 11:17 81 23 35 06/11/17 11:12 35 06/11/17 11:11 81 23 100 Mechanical Ventilator 35 06/11/17 08:46 81 23 35 06/11/17 08:43 78 151/74 06/11/17 08:00 35 06/11/17 07:48 80 06/11/17 07:39 97.2 78 25 151/74 100 Mechanical Ventilator 35 06/11/17 07:05 77 22 35 06/11/17 05:07 72 28 35 06/11/17 04:00 85 06/11/17 04:00 35 06/11/17 04:00 97.9 72 18 139/68 100 Mechanical Ventilator 35 06/11/17 03:06 75 20 35 06/11/17 01:11 75 20 35 06/11/17 00:00 35 06/11/17 00:00 73 06/10/17 23:45 97.5 74 20 149/78 100 Mechanical Ventilator 35 06/10/17 23:24 81 20 35 06/10/17 21:45 86 20 100 Mechanical Ventilator 35 06/10/17 21:45 35 06/10/17 21:37 80 24 96 Mechanical Ventilator 35 06/10/17 21:10 82 25 35 06/10/17 20:00 70 06/10/17 20:00 35 06/10/17 20:00 35 06/10/17 20:00 97.0 73 17 154/79 100 Mechanical Ventilator 35 06/10/17 19:10 78 24 35 06/10/17 17:23 77 20 35 Intake and Output 06/11/17 06/12/17 19:00 07:00 Intake Total 745 ml Output Total 309 ml Balance 436 ml Intake Free Water 50 ml IV Total 375 ml Tube Feeding 240 ml Other 80 ml Output Urine Total 309 ml Laboratory Tests 06/11/17 04:10: White Blood Count 19.1H, Red Blood Count 2.54L, Hemoglobin 8.7L, Hematocrit 24.6L, Mean Corpuscular Volume 97, Mean Corpuscular Hemoglobin 34.3H, Mean Corpuscular Hemoglobin Concent 35.4, Red Cell Distribution Width 13.8, Platelet Count 191, Mean Platelet Volume 9.2, Neutrophils (%) (Auto) , Lymphocytes (%) ( Auto) , Monocytes (%) (Auto) , Eosinophils (%) (Auto) , Basophils (%) (Auto) , Differential Total Cells Counted 100, Neutrophils % (Manual) 76H, Lymphocytes % (Manual) 17L, Monocytes % (Manual) 5, Eosinophils % (Manual) 1, Basophils % ( Manual) 0, Band Neutrophils 1, Platelet Estimate Adequate, Platelet Morphology Normal, Macrocytosis 1+, Sodium Level 141, Potassium Level 3.7, Chloride Level 107, Carbon Dioxide Level 20, Anion Gap 14, Blood Urea Nitrogen 24H, Creatinine 0.6, Estimat Glomerular Filtration Rate , Glucose Level 137H, Calcium Level 9.0 Height (Feet): 4 Height (Inches): 10.00 Weight (Pounds): 120 Objective General: unresponsive, non-verbal at baseline Head: normocephalic, without obvious abnormality, atraumatic Eyes: conjunctivae/corneas clear. PERRL, EOM's intact Throat: lips, mucosa, and tongue normal. MMM Neck: supple, symmetrical, trachea midline, and no JVD, +trach Lungs: clear to auscultation bilaterally Heart: regular rate and rhythm, S1, S2 normal, no murmur, click, rub or gallop Abdomen: soft, non-tender, non-distended, bowel sounds normal; +G tube c/d/i Extremities: extremities normal, atraumatic, no cyanosis or edema Pulses: 2+ and symmetric Skin: skin color, texture, turgor normal; no rashes or lesions Neurologic: grossly normal, no focal deficits Mariusz Ngo MD Jun 11, 2017 17:10
[2017-06-11 18:41] LABS: APPEARANCE,URINE CLEAR; KETONES,URINE NEGATIVE (NEGATIVE); LEUKOCYTE ESTERASE ,URINE 2+ (NEGATIVE); NITRITE,URINE NEGATIVE (NEGATIVE); PH,URINE 7 (4.5-8.0); PROTEIN,URINE 1+ (NEGATIVE); UROBILINOGEN,URINE NORMAL MG/DL (0.0-1.0)
[2017-06-11 18:48] LABS: BACTERIA,URINE MANY /HPF; RBC,URINE 0-2 /HPF (0 - 2); SQUAMOUS EPITHELIAL CELL,UR FEW /LPF (NONE/OCC)
[2017-06-11 20:00] VITALS: BP 150/72
[2017-06-11] MEDS: Phenytoin 100mg cap ORAL SCH (20:38)
[2017-06-11] MEDS: Donepezil 5mg Tab GT SCH (20:38)
[2017-06-11] MEDS: Sertraline 50mg tab GT SCH (20:38)
[2017-06-11] MEDS: Miralax 17gm pkt ORAL SCH (20:39)
--- NOTE | 2017-06-11 22:41 | General Progress Note ---
Assessment/Plan Assessment/Plan 1. 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 At this time, of care hospice given poor performance status. The patient with tracheostomy, ventilator, and bedbound, unlikely any type of chemotherapy would benefit her in this current physical status. --> recommend steroids as per neurology/neurosurgery, daughter has refused in the past but now potentially agreeable --> daughter considering hospice at this time 2. Deep venous thrombosis versus pulmonary embolism. The patient is status post inferior vena cava filter. --> not a candidate for blood thinner 3. Anemia, secondary to gastrointestinal bleed. Results of colonoscopy: internal hemorrhoids --> polyp removed for biopsy, shows evidence of tubular adenoma. --> GI following 4. Elevated tumor markers. CAT scan of the abdomen was reviewed and noted to have metastatic disease to the intramammary nodes. 5. Hyponatremia and acute kidney injury. Sodium and serum creatinine improved. 6. Anemia, secondary to chronic disease. Anemia workup reviewed. --> transfuse if hemoglobin is less than 7. 8. Gastrostomy tube feedings. Subjective ROS Limited/Unobtainable: Yes Allergies: Coded Allergies: No Known Allergies (Unverified , 06/08/17) Objective Last 24 Hour Vital Signs Date Time Temp Pulse Resp B/P (MAP) Pulse Ox O2 Delivery O2 Flow Rate FiO2 06/11/17 20:46 35 06/11/17 20:46 75 16 100 Mechanical Ventilator 35 06/11/17 20:45 75 18 35 06/11/17 20:00 97.9 77 21 150/72 100 Mechanical Ventilator 35 06/11/17 20:00 79 06/11/17 20:00 35 06/11/17 19:32 64 22 35 06/11/17 16:37 90 20 35 06/11/17 16:22 98.0 91 21 155/89 100 Mechanical Ventilator 35 06/11/17 16:00 35 06/11/17 15:36 74 06/11/17 14:45 78 21 35 06/11/17 12:53 79 23 35 06/11/17 12:08 73 06/11/17 12:00 35 06/11/17 11:51 97.2 75 18 143/86 100 Mechanical Ventilator 35 06/11/17 11:21 76 22 100 Mechanical Ventilator 35 06/11/17 11:17 81 23 35 06/11/17 11:12 35 06/11/17 11:11 81 23 100 Mechanical Ventilator 35 06/11/17 08:46 81 23 35 06/11/17 08:43 78 151/74 06/11/17 08:00 35 06/11/17 07:48 80 06/11/17 07:39 97.2 78 25 151/74 100 Mechanical Ventilator 35 06/11/17 07:05 77 22 35 06/11/17 05:07 72 28 35 06/11/17 04:00 85 06/11/17 04:00 35 06/11/17 04:00 97.9 72 18 139/68 100 Mechanical Ventilator 35 06/11/17 03:06 75 20 35 06/11/17 01:11 75 20 35 06/11/17 00:00 35 06/11/17 00:00 73 06/10/17 23:45 97.5 74 20 149/78 100 Mechanical Ventilator 35 06/10/17 23:24 81 20 35 Intake and Output 06/11/17 06/12/17 19:00 07:00 Intake Total 1730 ml Output Total 509 ml Balance 1221 ml Intake Free Water 150 ml IV Total 900 ml Tube Feeding 600 ml Other 80 ml Output Urine Total 509 ml # Bowel Movements 1 Laboratory Tests 06/11/17 04:10: White Blood Count 19.1H, Red Blood Count 2.54L, Hemoglobin 8.7L, Hematocrit 24.6L, Mean Corpuscular Volume 97, Mean Corpuscular Hemoglobin 34.3H, Mean Corpuscular Hemoglobin Concent 35.4, Red Cell Distribution Width 13.8, Platelet Count 191, Mean Platelet Volume 9.2, Neutrophils (%) (Auto) , Lymphocytes (%) ( Auto) , Monocytes (%) (Auto) , Eosinophils (%) (Auto) , Basophils (%) (Auto) , Differential Total Cells Counted 100, Neutrophils % (Manual) 76H, Lymphocytes % (Manual) 17L, Monocytes % (Manual) 5, Eosinophils % (Manual) 1, Basophils % ( Manual) 0, Band Neutrophils 1, Platelet Estimate Adequate, Platelet Morphology Normal, Macrocytosis 1+, Sodium Level 141, Potassium Level 3.7, Chloride Level 107, Carbon Dioxide Level 20, Anion Gap 14, Blood Urea Nitrogen 24H, Creatinine 0.6, Estimat Glomerular Filtration Rate , Glucose Level 137H, Calcium Level 9.0 06/11/17 17:00: Urine Color Pale yellow, Urine Appearance Clear, Urine pH 7, Urine Specific [place] 1.005, Urine Protein 1+H, Urine Glucose (UA) Negative, Urine Ketones Negative, Urine Occult Blood Negative, Urine Nitrite Negative, Urine Bilirubin Negative, Urine Urobilinogen Normal, Urine Leukocyte Esterase 2+H, Urine RBC 0-2 , Urine WBC 2-4, Urine Squamous Epithelial Cells Few, Urine Bacteria ManyH Height (Feet): 4 Height (Inches): 10.00 Weight (Pounds): 120 General Appearance: no apparent distress EENT: normal ENT inspection Neck: normal inspection Cardiovascular: no gallop/murmur Abdomen: hypoactive bowel sounds Edema: trace edema Skin: warm/dry Jackson Arias Jun 11, 2017 22:41
[2017-06-12] VITALS: BP 154/81
[2017-06-12] MEDS: Ciprofloxacin Opth Soln BOTH EYES SCH ×4 (00:23→18:02)
[2017-06-12] MEDS: NovoLOG Insulin Flexpen SUBQ SCH ×4 (00:24→18:04)
[2017-06-12] MEDS: Dexamethasone 4mg/ml vial IVP SCH ×4 (00:27→18:03)
[2017-06-12 04:00] VITALS: BP 140/80
[2017-06-12] MEDS: Budesonide HHN 0.25mg/2ml ud HHN SCH ×2 (07:13→20:37)
[2017-06-12 08:05] VITALS: BP 159/87
[2017-06-12] MEDS: Docusate 100mg/10ml Liq GT SCH ×2 (09:00→18:02)
[2017-06-12] MEDS: Artificial Tears 1.4% Op Soln BOTH EYES SCH ×2 (09:21→18:02)
[2017-06-12] MEDS: Zinc Sulfate 220mg cap ORAL SCH (09:22)
[2017-06-12] MEDS: Lacosamide 100 MG TABLET ORAL SCH ×2 (09:22→21:23)
[2017-06-12] MEDS: Topiramate 100mg tab GT SCH ×2 (09:22→21:17)
[2017-06-12] MEDS: Ascorbic Acid 500mg tab ORAL SCH (09:22)
[2017-06-12] MEDS: levETIRAcetam 500mg/5ml Liquid GT SCH ×2 (09:22→18:03)
--- NOTE | 2017-06-12 09:59 | Pulmonology Progress Note ---
Assessment/Plan Assessment/Plan ASSESSMENT acute toxic metabolic encephalopathy VDRF/trach acute anemia, requiring blood transfusion anemia of chronic disease r/o GI bleeding s/p colonoscopy elevated cancer tumor markers ovarian Ca with brain mets HTN seizure disorder acute kidney injury -resolved ( likely due to dehydration) hypernatremia dehydration HTN hx of CVA Functional quadriplegia Leukocytosis sacrococcyx decub, POA , un-stageable; Left ischial decub st3 POA PLAN OF CARE HASMUKH status IVF vent support, trach care baseline ABG stable on current settings, keep as is and titrate settings as needed CXR with R pleural effusion vs pleural thickening fup with CXR in am s/p blood transfusion, anemia w/up c/w with anemia of chronic disease , elevated ferritin monitor HH and transfuse prn, goal to keep Hgb above 7.5 stool OB negative all tumor markers elevated except CA 19-9 s/p colonoscopy with findings of internal hemorrhoids, 1 colon polyp, s/p biopsy, biopsy revealed tubular adenoma, no high grade dysplasia CT brain - approximately 4.7 x 4.6 x 5 cm mass in the right parietal lobe with extensive vasogenic edema of both hemispheres.. Resultant extensive mass effect. Near-complete nonvisualization of the basilar cisterns is worrisome for impending uncal herniation. There is 2 cm of [id number] midline shift. 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 Overlying craniotomy defect on steroids leukocytosis may be reactive due to steroids, no fever PPI GI follows SCD for mechanical prophylaxis of DVt IVF monitor Na, hyper Na was likely due to dehydration Na and K stable off Lasix given VERNA off abx, no clinical evidence of infection BP management with CCB and BB, optimize as needed seizure precautions continue multiple regimen of antiepileptic Venous Duplex BLE negative for acute DVt CT A/P -No evidence of acute abdominal or pelvic process Evidence of sacral decubitus changes. Evidence of osseous destructive change at the sacrococcygeal junction and coccyx concerning for osteomyelitis. w/up for possible osteo- as per PMD discretion wound care as per wound nurse recommendations symptomatic management: pain control, bowel regimen strict aspiration precautions, GT feeding, monitor tolerance consider comfort measures, terminal extubation and Morphine gtt case discussed and evaluated by supervising physician Subjective Allergies: Coded Allergies: No Known Allergies (Unverified , 06/08/17) Subjective leukocytosis9.9, afebrile no labs today no signs of respiratory distress on current settings Objective Last 24 Hour Vital Signs Date Time Temp Pulse Resp B/P (MAP) Pulse Ox O2 Delivery O2 Flow Rate FiO2 06/12/17 09:25 80 16 35 06/12/17 09:22 79 159/87 06/12/17 08:05 96.8 79 20 159/87 100 Mechanical Ventilator 35 06/12/17 07:19 83 16 100 Mechanical Ventilator 35 06/12/17 07:16 90 16 35 06/12/17 07:10 90 16 100 Mechanical Ventilator 35 06/12/17 07:10 35 06/12/17 05:26 99 29 35 06/12/17 04:00 35 06/12/17 04:00 97.9 75 19 140/80 100 Mechanical Ventilator 35 06/12/17 03:44 73 23 35 06/12/17 03:37 71 06/12/17 01:09 69 21 35 06/12/17 00:00 97.9 77 21 154/81 100 Mechanical Ventilator 35 06/12/17 00:00 35 06/12/17 00:00 65 06/11/17 23:18 77 19 35 06/11/17 20:56 81 22 100 Mechanical Ventilator 35 06/11/17 20:46 35 06/11/17 20:46 75 16 100 Mechanical Ventilator 35 06/11/17 20:45 75 18 35 06/11/17 20:00 97.9 77 21 150/72 100 Mechanical Ventilator 35 06/11/17 20:00 79 06/11/17 20:00 35 06/11/17 19:32 64 22 35 06/11/17 16:37 90 20 35 06/11/17 16:22 98.0 91 21 155/89 100 Mechanical Ventilator 35 06/11/17 16:00 35 06/11/17 15:36 74 06/11/17 14:45 78 21 35 06/11/17 12:53 79 23 35 06/11/17 12:08 73 06/11/17 12:00 35 06/11/17 11:51 97.2 75 18 143/86 100 Mechanical Ventilator 35 06/11/17 11:21 76 22 100 Mechanical Ventilator 35 06/11/17 11:17 81 23 35 06/11/17 11:12 35 06/11/17 11:11 81 23 100 Mechanical Ventilator 35 Objective General Appearance: no acute distress, bedridden vent dependent AA female in NAD , SIMV 450-35%-16 HEENT: status post trach with Portex #7, secretions small, yellow, thin Respiratory/Chest: lungs clear, no respiratory distress, no accessory muscle use Cardiovascular: normal peripheral pulses, normal rate, regular rhythm Abdomen: normal bowel sounds, soft, non tender, G tube Genitourinary: sacrococcyx and L ischial decub Extremities: other - SCD on Neurologic/Psychiatric: bedridden , L side hemiparesis , not responsive, w/ draws to tactile stimuli Musculoskeletal: atrophy of BLE Microbiology Date/Time Source Procedure Growth Status 06/11/17 17:00 Indwelling Cath Urine Culture - Preliminary Gram Negative Bacillus 1 Resulted Laboratory Tests 06/11/17 17:00: Urine Color Pale yellow, Urine Appearance Clear, Urine pH 7, Urine Specific [place] 1.005, Urine Protein 1+H, Urine Glucose (UA) Negative, Urine Ketones Negative, Urine Occult Blood Negative, Urine Nitrite Negative, Urine Bilirubin Negative, Urine Urobilinogen Normal, Urine Leukocyte Esterase 2+H, Urine RBC 0-2 , Urine WBC 2-4, Urine Squamous Epithelial Cells Few, Urine Bacteria ManyH 06/12/17 06:00: Stool Occult Blood [Pending] Current Medications Medications (Trade) Dose Ordered Sig/Ludivina Route PRN Reason Start Time Stop Time Status Last Admin Dose Admin Acetaminophen (Tylenol) 650 mg Q4H PRN ORAL Mild Pain (Pain Scale 1-3) 06/03/17 17:30 07/03/17 17:29 Amlodipine Besylate (Norvasc) 5 mg DAILY GT 06/04/17 09:00 07/04/17 08:59 06/12/17 09:22 Artificial Tears (Akwa-Tears) 1 drop BID BOTH EYES 06/06/17 22:00 07/06/17 21:59 06/12/17 09:21 Ascorbic Acid (Vitamin C) 500 mg DAILY ORAL 06/04/17 09:00 07/04/17 08:59 06/12/17 09:22 Budesonide (Pulmicort) 0.25 mg Q12HRT HHN 06/04/17 10:00 07/04/17 09:59 06/12/17 07:13 Ciprofloxacin (Ciloxan Opth Soln) 1 drop Q6HR BOTH EYES 06/07/17 17:00 06/14/17 16:59 06/12/17 05:46 Clonidine HCl (Catapres) 0.1 mg Q6H PRN GT For SBP>180 06/04/17 09:00 07/04/17 08:59 Dexamethasone Sodium Phosphate (Decadron 4mg/ml vial) 4 mg Q6HR IVP 06/09/17 00:00 07/09/17 00:00 06/12/17 05:46 Dextrose (Dextrose 50%) STAT PRN IV Hypoglycemia 06/03/17 17:30 07/03/17 17:29 Docusate Sodium (Colace) 100 mg TWICE A DAY GT 06/04/17 09:30 07/04/17 09:29 06/11/17 17:46 Donepezil HCl (Aricept) 5 mg BEDTIME GT 06/04/17 21:00 07/04/17 20:59 06/11/17 20:38 Folic Acid (Folate) 1 mg DAILY GT 06/04/17 09:00 07/04/17 08:59 06/12/17 09:22 Insulin Aspart (NovoLOG) EVERY 6 HOURS SUBQ 06/11/17 12:00 07/08/17 20:59 06/12/17 05:47 Lacosamide (Vimpat) 200 mg Q12HR ORAL 06/04/17 11:00 07/04/17 10:59 06/12/17 09:22 Lansoprazole (Prevacid) 30 mg Q12HR GT 06/04/17 10:00 07/04/17 09:59 06/12/17 09:22 Levetiracetam (Keppra) 1,500 mg BID GT 06/04/17 09:00 07/04/17 08:59 06/12/17 09:22 Phenytoin (Dilantin) 300 mg BEDTIME ORAL 06/04/17 21:00 07/04/17 20:59 06/11/17 20:38 Polyethylene Glycol (Miralax) 17 gm BEDTIME ORAL 06/05/17 21:00 07/05/17 20:59 06/11/17 20:39 Sertraline HCl (Zoloft) 50 mg BEDTIME GT 06/04/17 21:00 07/04/17 20:59 06/11/17 20:38 Sodium Chloride 1,000 ml @ 75 mls/hr [id number] IV 06/03/17 18:30 07/03/17 18:29 06/12/17 01:55 Topiramate (Topamax) 150 mg Q12HR GT 06/04/17 09:00 07/04/17 08:59 06/12/17 09:22 Zinc Sulfate (Zinc Sulfate) 220 mg DAILY ORAL 06/04/17 09:00 07/04/17 08:59 06/12/17 09:22 Lalit ([facility])Ly NP Jun 12, 2017 09:59
--- NOTE | 2017-06-12 10:37 | Diagnostic Imaging Report ---
Indication: Short of breath Technique: XRAY CHEST 1 V Comparison:06/07/2017 Findings: There is decreased infiltrate or atelectasis the right lung base. The right phrenic angle remains blunted. The heart is probably enlarged. No other change. Impression: Decreased right basilar infiltrate or atelectasis. Small right pleural effusion versus pleural thickening.
[2017-06-12] MEDS ORDERED: DuoNeb 0.5-3(2.5)mg/3ml neb HHN PRN (11:00)
[2017-06-12 11:30] VITALS: BP 145/80
--- NOTE | 2017-06-12 14:41 | General Progress Note ---
Assessment/Plan Assessment/Plan Problem List: (1) Acute toxic metabolic encephalopathy (2) Acute on chronic anemia (3) Hypernatremia ICD Codes: E87.0 - Hyperosmolality and hypernatremia SNOMED: 09762577 (4) VERNA (acute kidney injury) ICD Codes: N17.9 - Acute kidney failure, unspecified SNOMED: 12772106 (5) Tracheostomy dependence ICD Codes: Z93.0 - Tracheostomy status SNOMED: 644274714, 966139906 (6) Seizure ICD Codes: R56.9 - Unspecified convulsions SNOMED: 96779601 (7) HTN (hypertension) ICD Codes: I10 - Essential (primary) hypertension SNOMED: 13417718 (8) CVA (cerebral vascular accident) ICD Codes: I63.9 - Cerebral infarction, unspecified SNOMED: 870897737 (9) Functional quadriplegia ICD Codes: R53.2 - Functional quadriplegia SNOMED: 784218668870688 (10) Ovarian cancer ICD Codes: C56.9 - Malignant neoplasm of unspecified ovary SNOMED: 139009808 (11) Brain metastases ICD Codes: C79.31 - Secondary malignant neoplasm of brain SNOMED: 65754337 (12) PUD (peptic ulcer disease) ICD Codes: K27.9 - Peptic ulcer, site unspecified, unspecified as acute or chronic, without hemorrhage or perforation SNOMED: 37580005 (13) Leukocytosis ICD Codes: D72.829 - Elevated white blood cell count, unspecified SNOMED: 087653633, 800114419 suspect due to steroids (14) Left ischial tuberosity stage III pressure ulcer (15) Sacrococcygeal unstageable pressure ulcer with extensive full thickness scar tissue (16) Hypokalemia ICD Codes: E87.6 - Hypokalemia SNOMED: 57503380 Status: unchanged Assessment/Plan Per Dr curtis "CT head findings reviewed. Case discussed extensively with critical care MD and oncology at [facility] [place] who recommends comfort measures. Pt's daughter requesting further mgmt. Case discussed w/ neurosurgery and neuroICU at [facility] who state that pt is not a quinones rgical candidate. Pt's daughter requesting transfer to care of neurosurgeon Dr. Dias--spoke to his [employer] and they defer to pt's original neurosurgeon as Dr. Dias did not operate on pt. Pt's daughter has now decided to take pt home but she is not ready for hospice." Awaiting dispo home w/ HH on steroids trend chem, cbc Appreciate GI recs s/p 1U pRBC transfusion 06/04 Transfuse for hgb<[address] a/p reviewed s/p colonoscopy on 06/07/17 which showed colon polyp s/p removal Monitor for signs of bleeding Appreciate Pulm recs Cont vent IVFs for hypernatremia s/p levaquin in ED on 06/03 Will hold abx for now given no clear infectious source ID consulted given concern for osteo on CT, appreciate recs F/u cultures Cont other home meds including AEDs Pain control, supportive care, bowel regimen Cont tube feeds via PEG Cont wound care for pressure ulcers Daughter declining hospice after multiple discussions D/c plan for Mon DVT Prophylaxis: SCD Code Status: Full Hospital Classification Declaration: Based on this initial evaluation, and depending on the patient's clinical course, I anticipate that this patient will require hospitalization for 1-2 days for AMS, anemia, hypernatremia, VERNA and close respiratory/hemodynamic monitoring. Disposition: Once the patient is stable to leave the hospital, I anticipate the patient will likely be discharged to the following environment: home with HH + CG vs SNF Discussed with patient/family, nursing staff, SW/CM, GI, pulm, oncology regarding clinical status, treatment course, and disposition planning. Time of note may not reflect time of encounter. Subjective Date patient seen: Jun 12, 2017 ROS Limited/Unobtainable: Yes Allergies: Coded Allergies: No Known Allergies (Unverified , 06/08/17) Subjective no acute events afebrile cxr w/ improved infiltrate awaiting dispo Objective Last 24 Hour Vital Signs Date Time Temp Pulse Resp B/P (MAP) Pulse Ox O2 Delivery O2 Flow Rate FiO2 06/12/17 12:58 81 19 35 06/12/17 11:51 78 06/12/17 11:30 97.2 89 18 145/80 100 Mechanical Ventilator 35 06/12/17 11:04 83 22 35 06/12/17 09:25 80 16 35 06/12/17 09:22 79 159/87 06/12/17 08:05 96.8 79 20 159/87 100 Mechanical Ventilator 35 06/12/17 08:00 75 06/12/17 08:00 35 06/12/17 07:19 83 16 100 Mechanical Ventilator 35 06/12/17 07:16 90 16 35 06/12/17 07:10 90 16 100 Mechanical Ventilator 35 06/12/17 07:10 35 06/12/17 05:26 99 29 35 06/12/17 04:00 35 06/12/17 04:00 97.9 75 19 140/80 100 Mechanical Ventilator 35 06/12/17 03:44 73 23 35 06/12/17 03:37 71 06/12/17 01:09 69 21 35 06/12/17 00:00 97.9 77 21 154/81 100 Mechanical Ventilator 35 06/12/17 00:00 35 06/12/17 00:00 65 06/11/17 23:18 77 19 35 06/11/17 20:56 81 22 100 Mechanical Ventilator 35 06/11/17 20:46 35 06/11/17 20:46 75 16 100 Mechanical Ventilator 35 06/11/17 20:45 75 18 35 06/11/17 20:00 97.9 77 21 150/72 100 Mechanical Ventilator 35 06/11/17 20:00 79 06/11/17 20:00 35 06/11/17 19:32 64 22 35 06/11/17 16:37 90 20 35 06/11/17 16:22 98.0 91 21 155/89 100 Mechanical Ventilator 35 06/11/17 16:00 35 06/11/17 15:36 74 06/11/17 14:45 78 21 35 Intake and Output 06/12/17 06/13/17 19:00 07:00 Intake Total 310 ml Balance 310 ml Tube Feeding 240 ml Other 70 ml Laboratory Tests 06/11/17 17:00: Urine Color Pale yellow, Urine Appearance Clear, Urine pH 7, Urine Specific [place] 1.005, Urine Protein 1+H, Urine Glucose (UA) Negative, Urine Ketones Negative, Urine Occult Blood Negative, Urine Nitrite Negative, Urine Bilirubin Negative, Urine Urobilinogen Normal, Urine Leukocyte Esterase 2+H, Urine RBC 0-2 , Urine WBC 2-4, Urine Squamous Epithelial Cells Few, Urine Bacteria ManyH 06/12/17 06:00: Stool Occult Blood Negative Height (Feet): 4 Height (Inches): 10.00 Weight (Pounds): 120 Objective General: unresponsive, non-verbal at baseline Head: normocephalic, without obvious abnormality, atraumatic Eyes: conjunctivae/corneas clear. PERRL, EOM's intact Throat: lips, mucosa, and tongue normal. MMM Neck: supple, symmetrical, trachea midline, and no JVD, +trach Lungs: clear to auscultation bilaterally Heart: regular rate and rhythm, S1, S2 normal, no murmur, click, rub or gallop Abdomen: soft, non-tender, non-distended, bowel sounds normal; +G tube c/d/i Extremities: extremities normal, atraumatic, no cyanosis or edema Pulses: 2+ and symmetric Skin: skin color, texture, turgor normal; no rashes or lesions Neurologic: grossly normal, no focal deficits Mariusz Ngo MD Jun 12, 2017 14:41
[2017-06-12 16:00] VITALS: BP 154/81
[2017-06-12 20:00] VITALS: BP 135/70
[2017-06-12] MEDS: Donepezil 5mg Tab GT SCH (21:16)
[2017-06-12] MEDS: Sertraline 50mg tab GT SCH (21:23)
[2017-06-12] MEDS: Phenytoin 100mg cap ORAL SCH (21:23)
[2017-06-12] MEDS: Miralax 17gm pkt ORAL SCH (21:34)
--- NOTE | 2017-06-12 22:23 | General Progress Note ---
Assessment/Plan Assessment/Plan 1. 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 At this time, of care hospice given poor performance status. The patient with tracheostomy, ventilator, and bedbound, unlikely any type of chemotherapy would benefit her in this current physical status. --> recommend steroids as per neurology/neurosurgery, daughter has agreed and patient is on decadron --> daughter wanted aggressive treatment in the past but considering hospice at this time 2. Deep venous thrombosis versus pulmonary embolism. The patient is status post inferior vena cava filter. --> not a candidate for blood thinner 3. Anemia, secondary to gastrointestinal bleed. Results of colonoscopy: internal hemorrhoids --> polyp removed for biopsy, shows evidence of tubular adenoma. --> GI following 4. Elevated tumor markers. CAT scan of the abdomen was reviewed and noted to have metastatic disease to the intramammary nodes. 5. Hyponatremia and acute kidney injury. Sodium and serum creatinine improved. 6. Anemia, secondary to chronic disease. Anemia workup reviewed. --> transfuse if hemoglobin is less than 7. 8. Gastrostomy tube feedings. Subjective Constitutional: Reports: no symptoms HEENT: Reports: no symptoms Cardiovascular: Reports: no symptoms Respiratory: Reports: no symptoms Gastrointestinal/Abdominal: Reports: no symptoms Genitourinary: Reports: no symptoms Neurologic/Psychiatric: Reports: no symptoms Endocrine: Reports: no symptoms Hematologic/Lymphatic: Reports: no symptoms Allergies: Coded Allergies: No Known Allergies (Unverified , 06/08/17) Subjective increase in wbc no major events Objective Last 24 Hour Vital Signs Date Time Temp Pulse Resp B/P (MAP) Pulse Ox O2 Delivery O2 Flow Rate FiO2 06/12/17 20:46 79 21 100 Mechanical Ventilator 35 06/12/17 20:37 35 06/12/17 20:37 71 16 100 Mechanical Ventilator 35 06/12/17 20:37 71 16 35 06/12/17 20:00 70 06/12/17 19:09 73 21 35 06/12/17 16:53 78 18 35 06/12/17 16:00 98.1 90 24 154/81 100 Mechanical Ventilator 35 06/12/17 16:00 35 06/12/17 16:00 85 06/12/17 14:45 74 18 35 06/12/17 12:58 81 19 35 06/12/17 12:00 35 06/12/17 11:51 78 06/12/17 11:30 97.2 89 18 145/80 100 Mechanical Ventilator 35 06/12/17 11:04 83 22 35 06/12/17 09:25 80 16 35 06/12/17 09:22 79 159/87 06/12/17 08:05 96.8 79 20 159/87 100 Mechanical Ventilator 35 06/12/17 08:00 75 06/12/17 08:00 35 06/12/17 07:19 83 16 100 Mechanical Ventilator 35 06/12/17 07:16 90 16 35 06/12/17 07:10 90 16 100 Mechanical Ventilator 35 06/12/17 07:10 35 06/12/17 05:26 99 29 35 06/12/17 04:00 35 06/12/17 04:00 97.9 75 19 140/80 100 Mechanical Ventilator 35 06/12/17 03:44 73 23 35 06/12/17 03:37 71 06/12/17 01:09 69 21 35 06/12/17 00:00 97.9 77 21 154/81 100 Mechanical Ventilator 35 06/12/17 00:00 35 06/12/17 00:00 65 06/11/17 23:18 77 19 35 Intake and Output 06/12/17 06/13/17 19:00 07:00 Intake Total 1707.5 ml Output Total 1107 ml Balance 600.5 ml Free Water 80 ml IV Total 837.5 ml Tube Feeding 720 ml Other 70 ml Output Urine Total 1107 ml # Voids 2 Laboratory Tests 06/12/17 06:00: Stool Occult Blood Negative Height (Feet): 4 Height (Inches): 10.00 Weight (Pounds): 120 General Appearance: no apparent distress EENT: PERRL/EOMI Neck: non-tender Abdomen: normal bowel sounds, no organomegaly Edema: 1+ Pedal (L), 1+ Pedal (R) Jackson Arias Jun 12, 2017 22:23
[2017-06-13] VITALS: BP 149/75
[2017-06-13] MEDS: Ciprofloxacin Opth Soln BOTH EYES SCH ×3 (00:07→12:00)
[2017-06-13] MEDS: Dexamethasone 4mg/ml vial IVP SCH ×3 (00:08→12:00)
[2017-06-13] MEDS: NovoLOG Insulin Flexpen SUBQ SCH ×3 (00:09→12:00)
[2017-06-13 04:00] VITALS: BP 184/97
[2017-06-13 05:36] LABS: CARBON DIOXIDE 21 mEQ/L (20-30); CHLORIDE 104 mEQ/L (98-107); CREATININE 0.5 mg/dL (0.5-0.9); HEMOLYSIS 2; SODIUM 139 mEQ/L (135-145)
[2017-06-13 05:53] LABS: MEAN CORPUSCULAR HEMOGLOBIN 33.3 PG (27.0-31.0); MEAN CORPUSCULAR HGB CONC 34.3 G/DL (32.0-36.0); MEAN CORPUSCULAR VOLUME 97 FL (80-99); MEAN PLATELET VOLUME 8.8 FL (6.5-10.1); PLATELET COUNT 212 K/UL (150-450); RED BLOOD COUNT 2.62 M/UL (4.20-5.40); RED CELL DISTRIBUTION WIDTH 13.9 % (11.6-14.8); WHITE BLOOD COUNT 18.1 K/UL (4.8-10.8)
[2017-06-13 06:02] LABS: ANION GAP 14 (5-15); POTASSIUM 4.1 mEQ/L (3.4-4.9)
[2017-06-13 08:00] VITALS: BP 143/87
[2017-06-13 08:10] LABS: ANISOCYTOSIS 1+; BAND NEUTROPHILS % (MANUAL) 0 % (0-8); BASOPHILS % (MANUAL) 0 % (0-2); EOSINOPHILS % (MANUAL) 2 % (0-3); LYMPHOCYTES % (MANUAL) 19 % (20-45); MACROCYTES 1+; NEUTROPHILS % (MANUAL) 73 % (45-75); PLATELET ESTIMATE ADEQUATE; PLATELET MORPHOLOGY NORMAL; STOMATOCYTES 1+; TOTAL CELLS COUNTED 100
[2017-06-13 08:11] LABS: OVALOCYTES 1+
[2017-06-13] MEDS: Ascorbic Acid 500mg tab ORAL SCH (08:35)
[2017-06-13] MEDS: Zinc Sulfate 220mg cap ORAL SCH (08:35)
[2017-06-13] MEDS: Lacosamide 100 MG TABLET ORAL SCH (08:36)
[2017-06-13] MEDS: levETIRAcetam 500mg/5ml Liquid GT SCH (08:36)
[2017-06-13] MEDS: Topiramate 100mg tab GT SCH (08:37)
[2017-06-13] MEDS: Docusate 100mg/10ml Liq GT SCH (08:37)
[2017-06-13] MEDS: Artificial Tears 1.4% Op Soln BOTH EYES SCH (08:38)
[2017-06-13] MEDS: Budesonide HHN 0.25mg/2ml ud HHN SCH (09:51)
--- NOTE | 2017-06-13 10:48 | Diagnostic Imaging Report ---
Indication: SOB Technique: One view of the chest Comparison: 06/12/2017 Findings: Band of atelectasis or scarring at the right lung base is again demonstrated. Lungs and pleural spaces are otherwise clear. Heart is borderline enlarged. Tracheostomy is present Impression: Right basilar atelectasis or scarring. No acute process otherwise. No significant interim change
--- NOTE | 2017-06-13 10:51 | GI Progress Note ---
Assessment/Plan Problems: (1) Elevated CEA ICD Codes: R97.0 - Elevated carcinoembryonic antigen [CEA] SNOMED: 12741078, 995731217 (2) Anemia ICD Codes: D64.9 - Anemia, unspecified SNOMED: 760827413 Qualifiers: Qualified Codes: D64.9 - Anemia, unspecified Status: stable Status Narrative Discussed with Dr. Tejada. Assessment/Plan s/p colonoscopy SUMMARY OF FINDINGS: 1. One colonic polyp removed, see above for details. 2. Internal hemorrhoids. OB stool negative x 2 RECOMMENDATIONS: GTFs per dietary, tolerating fu biopsy >> unremarkable monitor H&H, prn transfusion ppi abx fu labs Subjective Subjective limited Objective Last 24 Hour Vital Signs Date Time Temp Pulse Resp B/P (MAP) Pulse Ox O2 Delivery O2 Flow Rate FiO2 06/13/17 09:51 84 18 100 Mechanical Ventilator 35 06/13/17 09:40 35 06/13/17 09:40 82 16 100 Mechanical Ventilator 35 06/13/17 09:00 82 19 35 06/13/17 08:37 66 115/64 06/13/17 08:00 79 06/13/17 08:00 98.0 79 24 143/87 100 Mechanical Ventilator 35 06/13/17 08:00 35 06/13/17 07:05 70 19 35 06/13/17 05:06 90 23 35 06/13/17 04:15 184/97 06/13/17 04:00 85 06/13/17 04:00 35 06/13/17 04:00 97.9 89 24 184/97 100 Mechanical Ventilator 35 06/13/17 03:00 93 22 35 06/13/17 01:20 35 06/13/17 01:09 81 19 35 06/13/17 01:00 35 06/13/17 00:00 97.9 78 24 149/75 100 Mechanical Ventilator 35 06/13/17 00:00 82 06/12/17 23:18 78 24 35 06/12/17 20:46 79 21 100 Mechanical Ventilator 35 06/12/17 20:37 35 06/12/17 20:37 71 16 100 Mechanical Ventilator 35 06/12/17 20:37 71 16 35 06/12/17 20:00 35 06/12/17 20:00 97.9 75 24 135/70 100 Mechanical Ventilator 35 06/12/17 20:00 70 06/12/17 19:09 73 21 35 06/12/17 16:53 78 18 35 06/12/17 16:00 98.1 90 24 154/81 100 Mechanical Ventilator 35 06/12/17 16:00 35 06/12/17 16:00 85 06/12/17 14:45 74 18 35 06/12/17 12:58 81 19 35 06/12/17 12:00 35 06/12/17 11:51 78 06/12/17 11:30 97.2 89 18 145/80 100 Mechanical Ventilator 35 06/12/17 11:04 83 22 35 Intake and Output 06/13/17 06/14/17 19:00 07:00 Intake Total 225 ml Balance 225 ml IV Total 225 ml Laboratory Tests Test 06/13/17 04:00 White Blood Count 18.1 K/UL (4.8-10.8) H Red Blood Count 2.62 M/UL (4.20-5.40) L Hemoglobin 8.7 G/DL (12.0-16.0) L Hematocrit 25.4 % (37.0-47.0) L Mean Corpuscular Volume 97 FL (80-99) Mean Corpuscular Hemoglobin 33.3 PG (27.0-31.0) H Mean Corpuscular Hemoglobin Concent 34.3 G/DL (32.0-36.0) Red Cell Distribution Width 13.9 % (11.6-14.8) Platelet Count 212 K/UL (150-450) Mean Platelet Volume 8.8 FL (6.5-10.1) Neutrophils (%) (Auto) % (45.0-75.0) Lymphocytes (%) (Auto) % (20.0-45.0) Monocytes (%) (Auto) % (1.0-10.0) Eosinophils (%) (Auto) % (0.0-3.0) Basophils (%) (Auto) % (0.0-2.0) Differential Total Cells Counted 100 Neutrophils % (Manual) 73 % (45-75) Lymphocytes % (Manual) 19 % (20-45) L Monocytes % (Manual) 6 % (1-10) Eosinophils % (Manual) 2 % (0-3) Basophils % (Manual) 0 % (0-2) Band Neutrophils 0 % (0-8) Platelet Estimate Adequate Platelet Morphology Normal Anisocytosis 1+ Macrocytosis 1+ Ovalocytes 1+ Stomatocytes 1+ Sodium Level 139 mEQ/L (135-145) Potassium Level 4.1 mEQ/L (3.4-4.9) Chloride Level 104 mEQ/L (98-107) Carbon Dioxide Level 21 mEQ/L (20-30) Anion Gap 14 (5-15) Blood Urea Nitrogen 29 mg/dL (7-23) H Creatinine 0.5 mg/dL (0.5-0.9) Estimat Glomerular Filtration Rate mL/min (>60) Glucose Level 133 mg/dL (74-106) H Calcium Level 9.0 mg/dL (8.6-10.2) Height (Feet): 4 Height (Inches): 10.00 Weight (Pounds): 120 General Appearance: no apparent distress Cardiovascular: normal rate Respiratory/Chest: other - mech vent Abdominal Exam: GT site - c/d/i Kalani Lockhart N.P. Jun 13, 2017 10:51
--- NOTE | 2017-06-13 11:21 | Pulmonology Progress Note ---
Assessment/Plan Problems: (1) Tracheostomy dependence (2) Chronic respiratory disease (3) Anemia (4) Elevated CEA Assessment/Plan wbc still high, could be secondary to tumore respiratory treatment CT of head noted, large mass, with edema and shifting midline prbc prn DC home with home health. Subjective ROS Limited/Unobtainable: No Constitutional: Reports: no symptoms HEENT: Repors: no symptoms Respiratory: Reports: no symptoms Allergies: Coded Allergies: No Known Allergies (Unverified , 06/08/17) Objective Last 24 Hour Vital Signs Date Time Temp Pulse Resp B/P (MAP) Pulse Ox O2 Delivery O2 Flow Rate FiO2 06/13/17 11:03 69 19 35 06/13/17 09:51 84 18 100 Mechanical Ventilator 35 06/13/17 09:40 35 06/13/17 09:40 82 16 100 Mechanical Ventilator 35 06/13/17 09:00 82 19 35 06/13/17 08:37 66 115/64 06/13/17 08:00 79 06/13/17 08:00 98.0 79 24 143/87 100 Mechanical Ventilator 35 06/13/17 08:00 35 06/13/17 07:05 70 19 35 06/13/17 05:06 90 23 35 06/13/17 04:15 184/97 06/13/17 04:00 85 06/13/17 04:00 35 06/13/17 04:00 97.9 89 24 184/97 100 Mechanical Ventilator 35 06/13/17 03:00 93 22 35 06/13/17 01:20 35 06/13/17 01:09 81 19 35 06/13/17 01:00 35 06/13/17 00:00 97.9 78 24 149/75 100 Mechanical Ventilator 35 06/13/17 00:00 82 06/12/17 23:18 78 24 35 06/12/17 20:46 79 21 100 Mechanical Ventilator 35 06/12/17 20:37 35 06/12/17 20:37 71 16 100 Mechanical Ventilator 35 06/12/17 20:37 71 16 35 06/12/17 20:00 35 06/12/17 20:00 97.9 75 24 135/70 100 Mechanical Ventilator 35 06/12/17 20:00 70 06/12/17 19:09 73 21 35 06/12/17 16:53 78 18 35 06/12/17 16:00 98.1 90 24 154/81 100 Mechanical Ventilator 35 06/12/17 16:00 35 06/12/17 16:00 85 06/12/17 14:45 74 18 35 06/12/17 12:58 81 19 35 06/12/17 12:00 35 06/12/17 11:51 78 06/12/17 11:30 97.2 89 18 145/80 100 Mechanical Ventilator 35 Intake and Output 06/13/17 06/14/17 19:00 07:00 Intake Total 225 ml Balance 225 ml IV Total 225 ml General Appearance: WD/WN HEENT: normocephalic, atraumatic Respiratory/Chest: chest wall non-tender, lungs clear Cardiovascular: normal peripheral pulses, normal rate Abdomen: normal bowel sounds, soft, non tender Extremities: no cyanosis, no clubbing Neurologic/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: 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, no motor/sensory deficits Lymphatic: no neck adenopathy Microbiology Date/Time Source Procedure Growth Status 06/11/17 18:45 Blood Blood Culture - Preliminary NO GROWTH AFTER 24 HOURS Resulted 06/11/17 18:35 Blood Blood Culture - Preliminary NO GROWTH AFTER 24 HOURS Resulted 06/11/17 17:00 Indwelling Cath Urine Culture - Final Klebsiella Pneumoniae Complete Laboratory Tests 06/13/17 04:00: White Blood Count 18.1H, Red Blood Count 2.62L, Hemoglobin 8.7L, Hematocrit 25.4L, Mean Corpuscular Volume 97, Mean Corpuscular Hemoglobin 33.3H, Mean Corpuscular Hemoglobin Concent 34.3, Red Cell Distribution Width 13.9, Platelet Count 212, Mean Platelet Volume 8.8, Neutrophils (%) (Auto) , Lymphocytes (%) ( Auto) , Monocytes (%) (Auto) , Eosinophils (%) (Auto) , Basophils (%) (Auto) , Differential Total Cells Counted 100, Neutrophils % (Manual) 73, Lymphocytes % ( Manual) 19L, Monocytes % (Manual) 6, Eosinophils % (Manual) 2, Basophils % ( Manual) 0, Band Neutrophils 0, Platelet Estimate Adequate, Platelet Morphology Normal, Anisocytosis 1+, Macrocytosis 1+, Ovalocytes 1+, Stomatocytes 1+, Sodium Level 139, Potassium Level 4.1, Chloride Level 104, Carbon Dioxide Level 21, Anion Gap 14, Blood Urea Nitrogen 29H, Creatinine 0.5, Estimat Glomerular Filtration Rate , Glucose Level 133H, Calcium Level 9.0 Current Medications Medications (Trade) Dose Ordered Sig/Ludivina Route PRN Reason Start Time Stop Time Status Last Admin Dose Admin Acetaminophen (Tylenol) 650 mg Q4H PRN ORAL Mild Pain (Pain Scale 1-3) 06/03/17 17:30 07/03/17 17:29 Albuterol/ Ipratropium (DuoNeb 0.5-3(2.5)mg/3ml) 3 ml Q4H PRN HHN Shortness of Breath 06/12/17 11:00 06/17/17 10:59 Amlodipine Besylate (Norvasc) 5 mg DAILY GT 06/04/17 09:00 07/04/17 08:59 06/13/17 08:37 Artificial Tears (Akwa-Tears) 1 drop BID BOTH EYES 06/06/17 22:00 07/06/17 21:59 06/13/17 08:38 Ascorbic Acid (Vitamin C) 500 mg DAILY ORAL 06/04/17 09:00 07/04/17 08:59 06/13/17 08:35 Budesonide (Pulmicort) 0.25 mg Q12HRT HHN 06/04/17 10:00 07/04/17 09:59 06/13/17 09:51 Ciprofloxacin (Ciloxan Opth Soln) 1 drop Q6HR BOTH EYES 06/07/17 17:00 06/14/17 16:59 06/13/17 05:33 Clonidine HCl (Catapres) 0.1 mg Q6H PRN GT For SBP>180 06/04/17 09:00 07/04/17 08:59 06/13/17 04:15 Dexamethasone Sodium Phosphate (Decadron 4mg/ml vial) 4 mg Q6HR IVP 06/09/17 00:00 07/09/17 00:00 06/13/17 05:32 Dextrose (Dextrose 50%) STAT PRN IV Hypoglycemia 06/03/17 17:30 07/03/17 17:29 Docusate Sodium (Colace) 100 mg TWICE A DAY GT 06/04/17 09:30 07/04/17 09:29 06/13/17 08:37 Donepezil HCl (Aricept) 5 mg BEDTIME GT 06/04/17 21:00 07/04/17 20:59 06/12/17 21:16 Folic Acid (Folate) 1 mg DAILY GT 06/04/17 09:00 07/04/17 08:59 06/13/17 08:37 Insulin Aspart (NovoLOG) EVERY 6 HOURS SUBQ 06/11/17 12:00 07/08/17 20:59 06/13/17 05:32 Lacosamide (Vimpat) 200 mg Q12HR ORAL 06/04/17 11:00 07/04/17 10:59 06/13/17 08:36 Lansoprazole (Prevacid) 30 mg Q12HR GT 06/04/17 10:00 07/04/17 09:59 06/13/17 08:35 Levetiracetam (Keppra) 1,500 mg BID GT 06/04/17 09:00 07/04/17 08:59 06/13/17 08:36 Phenytoin (Dilantin) 300 mg BEDTIME ORAL 06/04/17 21:00 07/04/17 20:59 06/12/17 21:23 Polyethylene Glycol (Miralax) 17 gm BEDTIME ORAL 06/05/17 21:00 07/05/17 20:59 06/12/17 21:34 Sertraline HCl (Zoloft) 50 mg BEDTIME GT 06/04/17 21:00 07/04/17 20:59 06/12/17 21:23 Sodium Chloride 1,000 ml @ 75 mls/hr [id number] IV 06/03/17 18:30 07/03/17 18:29 06/13/17 04:15 Topiramate (Topamax) 150 mg Q12HR GT 06/04/17 09:00 07/04/17 08:59 06/13/17 08:37 Zinc Sulfate (Zinc Sulfate) 220 mg DAILY ORAL 06/04/17 09:00 07/04/17 08:59 06/13/17 08:35 BENJY CARMEN Jun 13, 2017 11:21
[2017-06-13 12:00] VITALS: BP 145/82
[2017-06-13] MEDS ORDERED: D5 1/2NS 1000ml IV ONE (13:01)
[2017-06-13] MEDS ORDERED: NS 275ml ONE (13:01)
[2017-06-13] MEDS ORDERED: Tubing IV Secondary IV ONE (13:01)
[2017-06-13] MEDS ORDERED: 1/2 NS 1000ml IV ONE ×3 (13:01)
--- NOTE | 2017-06-13 20:57 | General Progress Note ---
Assessment/Plan Assessment/Plan 1. 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 At this time, of care hospice given poor performance status. The patient with tracheostomy, ventilator, and bedbound, unlikely any type of chemotherapy would benefit her in this current physical status. --> recommend steroids as per neurology/neurosurgery, daughter has agreed and patient is on decadron --> daughter wanted aggressive treatment in the past but considering hospice at this time, however is not currently ready 2. Deep venous thrombosis versus pulmonary embolism. The patient is status post inferior vena cava filter. --> not a candidate for blood thinner 3. Anemia, secondary to gastrointestinal bleed. Results of colonoscopy: internal hemorrhoids --> polyp removed for biopsy, shows evidence of tubular adenoma. --> GI following 4. Elevated tumor markers. CAT scan of the abdomen was reviewed and noted to have metastatic disease to the intramammary nodes. 5. Hyponatremia and acute kidney injury. Sodium and serum creatinine improved. 6. Anemia, secondary to chronic disease. Anemia workup reviewed. --> transfuse if hemoglobin is less than 7. 8. Gastrostomy tube feedings. Subjective Constitutional: Reports: no symptoms HEENT: Reports: no symptoms Cardiovascular: Reports: no symptoms Respiratory: Reports: no symptoms Gastrointestinal/Abdominal: Reports: no symptoms Genitourinary: Reports: no symptoms Neurologic/Psychiatric: Reports: no symptoms Endocrine: Reports: no symptoms Hematologic/Lymphatic: Reports: no symptoms Allergies: Coded Allergies: No Known Allergies (Unverified , 06/08/17) Subjective obtunded Objective Last 24 Hour Vital Signs Date Time Temp Pulse Resp B/P (MAP) Pulse Ox O2 Delivery O2 Flow Rate FiO2 06/13/17 12:00 98.1 72 17 145/82 100 Mechanical Ventilator 35 06/13/17 11:03 69 19 35 06/13/17 09:51 84 18 100 Mechanical Ventilator 35 06/13/17 09:40 35 06/13/17 09:40 82 16 100 Mechanical Ventilator 35 06/13/17 09:00 82 19 35 06/13/17 08:37 66 115/64 06/13/17 08:00 79 06/13/17 08:00 98.0 79 24 143/87 100 Mechanical Ventilator 35 06/13/17 08:00 35 06/13/17 07:05 70 19 35 06/13/17 05:06 90 23 35 06/13/17 04:15 184/97 06/13/17 04:00 85 06/13/17 04:00 35 06/13/17 04:00 97.9 89 24 184/97 100 Mechanical Ventilator 35 06/13/17 03:00 93 22 35 06/13/17 01:20 35 06/13/17 01:09 81 19 35 06/13/17 01:00 35 06/13/17 00:00 97.9 78 24 149/75 100 Mechanical Ventilator 35 06/13/17 00:00 82 06/12/17 23:18 78 24 35 Intake and Output 06/13/17 06/14/17 19:00 07:00 Intake Total 225 ml Output Total 420 ml Balance -195 ml IV Total 225 ml Output Urine Total 420 ml Laboratory Tests 06/13/17 04:00: White Blood Count 18.1H, Red Blood Count 2.62L, Hemoglobin 8.7L, Hematocrit 25.4L, Mean Corpuscular Volume 97, Mean Corpuscular Hemoglobin 33.3H, Mean Corpuscular Hemoglobin Concent 34.3, Red Cell Distribution Width 13.9, Platelet Count 212, Mean Platelet Volume 8.8, Neutrophils (%) (Auto) , Lymphocytes (%) ( Auto) , Monocytes (%) (Auto) , Eosinophils (%) (Auto) , Basophils (%) (Auto) , Differential Total Cells Counted 100, Neutrophils % (Manual) 73, Lymphocytes % ( Manual) 19L, Monocytes % (Manual) 6, Eosinophils % (Manual) 2, Basophils % ( Manual) 0, Band Neutrophils 0, Platelet Estimate Adequate, Platelet Morphology Normal, Anisocytosis 1+, Macrocytosis 1+, Ovalocytes 1+, Stomatocytes 1+, Sodium Level 139, Potassium Level 4.1, Chloride Level 104, Carbon Dioxide Level 21, Anion Gap 14, Blood Urea Nitrogen 29H, Creatinine 0.5, Estimat Glomerular Filtration Rate , Glucose Level 133H, Calcium Level 9.0 Height (Feet): 4 Height (Inches): 10.00 Weight (Pounds): 120 General Appearance: no apparent distress EENT: normal ENT inspection Neck: normal alignment Cardiovascular: normal peripheral pulses Extremities: non-tender Edema: mild edema Neurologic: unresponsive Skin: warm/dry Jackson Arias Jun 13, 2017 20:57
--- NOTE | 2017-06-14 08:24 | Discharge Summary ---
Discharge Summary Hospital Course Date of Admission Jun 03, 2017 at 15:18 Date of Discharge Jun 13, 2017 at 13:02 Admitting Diagnosis anemia/hypernatremia Reason for Hospitalization: abnormal labs, concern for GI bleed HPI 71y/o AAF w/ MMP including Hx PUD w/ bleeding ulcer, CVA, Dysphagia, Trach, Bedbound, Seizures, G tube and anemia presents with generalized weakness/ lethargy and abnormal labs. Per daughter who is pt's caregiver at home, outpatient labs done by PCP showed hypernatremia and anemia. Pt was then sent to ER. Daughter states pt is non-verbal at baseline but has been more lethargic over the last few weeks and more confused over the last 2 days. At baseline pt is bedbound and minimally verbal, however knows her family and is able to express her wants. She lives at home and her primary caregiver is her daughter. Pt is on trach collar and receives G tube meds/feeds. Pt has a sacral decubitus ulcer being treated at home w/ wound mgt. No reports of f/c, n/v, d/c, chest pain, SOB, abd pain. Consultations Pulmonary/critical care, Infectious disease, Hematology/oncology, Gastroenterology Hospital Course Pt was admitted and given IVFs for hypernatremia pRBC transfusion for anemia. Na normalized. Anemia improved. GT lavage showed no e/o bleeding. CT a/p was done which showed no e/o active bleeding. Pt also underwent colonoscopy by GI which did not show an sign of bleeding. Pt's noted to be increasingly lethargic per daughter which is different than baseline. CT brain done showed 4.7 x 4.6 x 5 cm mass in the right parietal lobe with extensive vasogenic edema of both hemispheres with 2cm of [id number] midline shift. Pt's daughter wished to proceed with further treatment. Case discussed extensively with critical care and oncology physicians at [facility] who recommends comfort measures. Palliative care was discussed with patient's daughter. However, she wished to transfer to facility who has neurosurgery available. Case discussed also w/ neurosurgery and neuroICU at [facility] who state that pt is not a surgical candidate. Pt's daughter requesting transfer to care of neurosurgeon Dr. Dias but they defer to pt's original neurosurgeon as they did not operate on pt. Pt's daughter then ultimately decided to take pt home but she is not ready for hospice yet. Discharge Medications Continued Medications: Folic Acid* (Folic Acid*) 1 Mg Tablet 1 MG GT DAILY, TAB Ipratropium/Albuterol Sulfate (DuoNeb 0.5-3(2.5)mg/3ml) 3 Ml Ampul.neb 3 ML HHN Q6HR, EA Lacosamide (Vimpat) 200 Mg Tablet 200 MG GT Q12HR, TAB Levetiracetam (Keppra) 100 Mg/1 Ml Liqd 15 ML GT BID, #300 ML 0 Refills Prednisone (Prednisone) 5 Mg Tab 5 MG GT DAILY, #10 TAB 0 Refills Sertraline Hcl* (Zoloft*) 50 Mg Tablet 50 MG GT BEDTIME, TAB Topiramate* (Topamax*) 100 Mg Tablet 100 MG GT Q12HR, #60 TAB 0 Refills Discharge Condition Upon Discharge: critical Discharge Disposition Patient was discharged to Home with Home Health(06) Discharge Diagnoses: (1) Large brain tumor w/ cerebral edema and midline shift (2) Chronic respiratory failure (3) Hypokalemia (4) Left ischial tuberosity stage III pressure ulcer (5) Sacrococcygeal unstageable pressure ulcer with extensive full thickness scar tissue (6) Acute on chronic anemia (7) Acute toxic metabolic encephalopathy (8) VERNA (acute kidney injury) (9) Hypernatremia (10) Functional quadriplegia Niki Rodriguez M.D. Jun 14, 2017 08:24
== END 2017-06-13 13:02 | disposition home health service (06) | DRG 640 ==
LOC: EDBD 14:08 → EMR 14:40 → EDBEDREQ 14:41 → 2W 15:18 → EDBEDREQ 15:19
PROC: 5A1955Z Respiratory Ventilation, Greater than 96 Consecutive Hours (ICD-10-PCS; principal; 2017-06-03)
PROC: 0DBK8ZX Excision of Ascending Colon, Via Natural or Artificial Opening Endoscopic, Diagnostic (ICD-10-PCS; 2017-06-07)
DX: E87.0 Hyperosmolality and hypernatremia (principal); G92 Toxic encephalopathy; E86.0 Dehydration; G93.6 Cerebral edema; N17.9 Acute kidney failure, unspecified; Z99.11 Dependence on respirator [ventilator] status; J96.10 Chronic respiratory failure, unspecified whether with hypoxia or hypercapnia; R53.2 Functional quadriplegia; C79.31 Secondary malignant neoplasm of brain; L89.893 Pressure ulcer of other site, stage 3; M86.68 Other chronic osteomyelitis, other site; E46 Unspecified protein-calorie malnutrition; Z93.0 Tracheostomy status; D64.9 Anemia, unspecified; Z93.1 Gastrostomy status; Z85.43 Personal history of malignant neoplasm of ovary; Z86.73 Personal history of transient ischemic attack (TIA), and cerebral infarction without residual deficits; G40.909 Epilepsy, unspecified, not intractable, without status epilepticus; R13.10 Dysphagia, unspecified; D63.8 Anemia in other chronic diseases classified elsewhere; I10 Essential (primary) hypertension; K27.9 Peptic ulcer, site unspecified, unspecified as acute or chronic, without hemorrhage or perforation; Z86.718 Personal history of other venous thrombosis and embolism; H10.9 Unspecified conjunctivitis; D72.829 Elevated white blood cell count, unspecified; E87.6 Hypokalemia; D12.2 Benign neoplasm of ascending colon; K64.8 Other hemorrhoids
CPT/HCPCS: 36415; 36600; 70450; 71010; 74177; 80048; 80053; 80076; 81003; 82270; 82306; 82378; 82550; 82553; 82607; 82728; 82746; 82803; 82962; 83540; 83550; 83605; 83615; 83735; 83880; 84100; 84443; 84484; 85007; 85025; 85044; 85060; 85610; 85651; 85730; 86300; 86301; 86304; 86850; 86900; 86901; 86920; 87040; 87081; 87086; 87181; 93005; 93970; 94002; 94003; 94150; 94640; 94664; 99285; J1815; J7620